=== PATIENT | male | born 1960 | race Caucasian/White ===

== ENCOUNTER 2016-08-07 20:35 | Emergency (ER) | payer OTHER ==
[2016-08-07 20:43] VITALS: TEMP 98.3
--- NOTE | 2016-08-07 21:00 | ED ---
General Adult HPI - General Chief complaint: Overdose Stated complaint: Drug Overdose Time Seen by Provider: 08/07/16 20:46 Source: patient, EMS, RN notes reviewed Mode of arrival: EMS Limitations: no limitations - History of Present Illness Initial comments: Patient is a 56-year-old male presenting to the emergency department following an overdose. Patient admits to injecting what he believed to be heroin. Patient has done this in the past however does not do this daily. Patient states there may have been something else and it. Family member who also became unresponsive believes been no may have been mixed with it. Patient feels fine at this time. Patient denies any injury. Patient denies any suicidal thoughts or suicide attempt. EMS did provide Narcan when they found patient unresponsive with resolution of symptoms. - Related Data Home Medications Medication Instructions Recorded Confirmed No Known Home Medications [No 07/16/16 08/07/16 Known Home Medications] Allergies Allergy/AdvReac Type Severity Reaction Status Date / Time No Known Allergies Allergy Verified 08/07/16 21:07 Review of Systems ROS Statement: Those systems with pertinent positive or pertinent negative responses have been documented in the HPI. ROS Other: All systems not noted in ROS Statement are negative. Constitutional: Denies: fever Eyes: Denies: eye pain ENT: Denies: ear pain Respiratory: Denies: dyspnea Cardiovascular: Denies: chest pain Endocrine: Denies: fatigue Gastrointestinal: Denies: abdominal pain Genitourinary: Denies: dysuria Musculoskeletal: Denies: back pain Skin: Denies: rash Neurological: Denies: weakness Psychiatric: Denies: depression, suicidal thoughts Past Medical History Past Medical History: GERD/Reflux, Hypertension, Pneumonia Additional Past Medical History / Comment(s): chronic back pain History of Any Multi-Drug Resistant Organisms: None Reported Past Surgical History: Adenoidectomy, Appendectomy, Cholecystectomy, Orthopedic Surgery, Tonsillectomy Past Anesthesia/Blood Transfusion Reactions: No Reported Reaction Past Psychological History: No Psychological Hx Reported Smoking Status: Current every day smoker Past Alcohol Use History: None Reported Additional Past Alcohol Use History / Comment(s): 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", 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13 Past Drug Use History: Heroin Additional Drug Use History / Comment(s): iv heroin - last use earlier this month 12/2015 - Past Family History Mother History Unknown: Yes Additional Family Medical History / Comment(s): huntingtons General Exam Limitations: no limitations General appearance: alert, in no apparent distress Head exam: Present: atraumatic Eye exam: Present: normal appearance, PERRL ENT exam: Present: normal oropharynx Neck exam: Present: normal inspection Respiratory exam: Present: normal lung sounds bilaterally Cardiovascular Exam: Present: tachycardia GI/Abdominal exam: Present: soft. Absent: tenderness Extremities exam: Present: normal inspection Neurological exam: Present: alert. Absent: motor sensory deficit Psychiatric exam: Present: normal affect, normal mood Skin exam: Absent: rash Course Vital Signs 08/07/16 08/07/16 20:36 20:42 Temperature 98.3 F Pulse Rate 108 H 102 H Respiratory 14 14 Rate Blood Pressure 203/108 160/98 O2 Sat by Pulse 95 94 L Oximetry EKG Findings - EKG Comments: EKG Findings:: Sinus tach at 103. DC 154. QRS 94. QT 360. QTC 471. Left axis. Normal QRS. Normal ST-T. Medical Decision Making - Medical Decision Making Patient reexamined twice and remains alert and appropriate. Disposition Clinical Impression: Heroin overdose Disposition: HOME SELF-CARE Condition: Stable Instructions: Opioid Overdose (ED), Adult Overdose (ED) Additional Instructions: Please follow-up with primary care physician in the next day or 2 for recheck. Discontinue heroin use. Return for drowsiness, weakness, worsening symptoms or other concerns. Please provide list for substance abuse follow-up. Referrals: None,Stated [Primary Care Provider] - 1-2 days Clary Javed MD [STAFF PHYSICIAN] - 1-2 days
[2016-08-07 22:45] VITALS: BP 169/91; PULSE 100; RESP 16
== END 2016-08-07 22:41 | disposition home or self-care (01) ==
LOC: EC 20:35
DX: T40.1X1A Poisoning by heroin, accidental (unintentional), initial encounter (principal); F17.200 Nicotine dependence, unspecified, uncomplicated
CPT/HCPCS: 93005; 99284

== ENCOUNTER 2017-03-21 07:53 | Inpatient (IN) | payer MEDICAID, OTHER ==
--- NOTE | 2017-03-21 08:27 | ED ---
Psych HPI <Jeffery Fu - Last Filed: 03/21/17 11:20> - General Source: patient, RN notes reviewed, old records reviewed Mode of arrival: ambulatory <Jayla Coy - Last Filed: 03/21/17 11:25> - General Chief Complaint: Psychiatric Symptoms Stated Complaint: SUICIDAL Time Seen by Provider: 03/21/17 08:05 - History of Present Illness Initial Comments: This is a 56-year-old male presenting to the emergency Department chief complaint of suicidal ideation. Patient reports that he has been extremely depressed over the past 2 weeks after his fiance . He reports that she was chronically ill had multiple multiple medical issues and he was taking care of her. Patient reports that since she passed 2 weeks ago he has been using heroin and drinking every day. Patient reports that he plans to overdose in order to kill himself. Patient states that he had a history of anxiety and depression and his past but does not take any medications at this time. Patient reports that he has no homicidal ideation. He states that he has never been hospitalized before for suicidal ideation. He states that he has been a chronic heroin user, but just started to drink heavily over the past 2 weeks. Patient reports that he's had a poor appetite and has not been able to sleep well. Patient reports that he now lives alone. He denies having any siblings, or family support. He denies any auditory or visual hallucinations.Patient denies any recent fever, chills, shortness of breath, chest pain, back pain, abdominal pain, nausea vomiting, numbness or tingling, dysuria or hematuria, constipation or diarrhea, headaches or visual changes, or any other current symptoms (Jayla Coy) - Related Data Home Medications Medication Instructions Recorded Confirmed No Known Home Medications [No 07/16/16 03/21/17 Known Home Medications] Allergies Allergy/AdvReac Type Severity Reaction Status Date / Time No Known Allergies Allergy Verified 03/21/17 08:31 Review of Systems ROS Other: All systems not noted in ROS Statement are negative. <TankJeffery - Last Filed: 03/21/17 11:20> ROS Other: All systems not noted in ROS Statement are negative. <Jayla Coy - Last Filed: 03/21/17 11:25> ROS Statement: Those systems with pertinent positive or pertinent negative responses have been documented in the HPI. Past Medical History Past Medical History: GERD/Reflux, Hypertension, Pneumonia Additional Past Medical History / Comment(s): chronic back pain History of Any Multi-Drug Resistant Organisms: None Reported Past Surgical History: Adenoidectomy, Appendectomy, Cholecystectomy, Orthopedic Surgery, Tonsillectomy Past Anesthesia/Blood Transfusion Reactions: No Reported Reaction Past Psychological History: No Psychological Hx Reported Smoking Status: Current every day smoker Past Alcohol Use History: None Reported Past Drug Use History: Heroin - Past Family History Mother History Unknown: Yes Additional Family Medical History / Comment(s): huntingtons <Jayla Coy - Last Filed: 03/21/17 11:25> General Exam <Jeffery Fu - Last Filed: 03/21/17 11:20> Limitations: no limitations General appearance: alert, in no apparent distress Head exam: Present: atraumatic, normocephalic, normal inspection Eye exam: Present: normal appearance, PERRL, EOMI. Absent: scleral icterus, conjunctival injection, periorbital swelling ENT exam: Present: normal exam, mucous membranes moist Neck exam: Present: normal inspection. Absent: tenderness, meningismus, lymphadenopathy Respiratory exam: Present: normal lung sounds bilaterally. Absent: respiratory distress, wheezes, rales, rhonchi, stridor Cardiovascular Exam: Present: regular rate, normal rhythm, normal heart sounds. Absent: systolic murmur, diastolic murmur, rubs, gallop, clicks GI/Abdominal exam: Present: soft, normal bowel sounds. Absent: distended, tenderness, guarding, rebound, rigid Extremities exam: Present: normal inspection, full ROM, normal capillary refill. Absent: tenderness, pedal edema, joint swelling, calf tenderness Back exam: Present: normal inspection Neurological exam: Present: alert, oriented X3, CN II-XII intact Psychiatric exam: Present: depressed, suicidal ideation (Patient reports that he is suicidal, extremely depressed. Patient is tearful on exam.), other. Absent: normal affect, normal mood Skin exam: Present: warm, dry, intact, normal color. Absent: rash <Jayla Coy - Last Filed: 03/21/17 11:25> - General Exam Comments Initial Comments: This is a 56-year-old male. Patient appears to be depressed and is crying and tearful. (Jayla Coy) Course <Jeffery Fu - Last Filed: 03/21/17 11:20> <Jayla Coy - Last Filed: 03/21/17 11:25> Vital Signs 03/21/17 07:57 Temperature 98.1 F Pulse Rate 87 Respiratory 20 Rate Blood Pressure 181/97 O2 Sat by Pulse 99 Oximetry - Reevaluation(s) Reevaluation #1: 03/21/17 08:26 is medically clear at this time. EPS was notified. (Jayla Coy) Reevaluation #2: 03/21/17 11:20 I did do a [id number] evaluation the patient patient was evaluated by the psychiatric service and will be admitted for inpatient treatment of depression. (Jeffery Fu) Medical Decision Making <Jeffery Fu - Last Filed: 03/21/17 11:20> <Jayla Coy - Last Filed: 03/21/17 11:25> - Medical Decision Making Physical 56-year-old male with history of heroin and alcohol abuse presenting for suicidal ideation. Patient reports that over the Past 2 weeks is been actually depressed and drinking heavily and using heroin more frequently, this was after his fiance . He reports that she is chronically ill, was taking care of her until she of sepsis 2 weeks ago. Patient is medically clear for EPS evaluation. Is a terminal patient will be admitted at this time. (Jayla Coy) - Lab Data Lab Results 03/21/17 Range/Units 09:04 Urine Opiates Screen Not Detected (NotDetected) Ur Oxycodone Screen Not Detected (NotDetected) Urine Methadone Screen Not Detected (NotDetected) Ur Propoxyphene Screen Not Detected (NotDetected) Ur Barbiturates Screen Not Detected (NotDetected) U Tricyclic Antidepress Not Detected (NotDetected) Ur Phencyclidine Scrn Not Detected (NotDetected) Ur Amphetamines Screen Detected H (NotDetected) U Methamphetamines Scrn Not Detected (NotDetected) U Benzodiazepines Scrn Not Detected (NotDetected) Urine Cocaine Screen Detected H (NotDetected) U Marijuana (THC) Screen Detected H (NotDetected) Disposition <Jeffery Fu - Last Filed: 03/21/17 11:20> Time of Disposition: 11:24 <Jayla Coy - Last Filed: 03/21/17 11:25> Clinical Impression: Suicidal ideation, Depression Disposition: ADMITTED IP TO THIS HOSP Condition: Stable Referrals: Kandace Hamlin MD [Primary Care Provider] - 1-2 days
[2017-03-21] MEDS ORDERED: MAG HYDROX/AL HYDROX/SIMETH 30 ML CUP PO PRN (11:55)
[2017-03-21] MEDS ORDERED: ZIPRASIDONE 20 MG VIAL IM PRN (11:55)
[2017-03-21] MEDS ORDERED: cloNIDine HCL 0.1 MG TAB PO STA (12:07)
[2017-03-21] MEDS ORDERED: LOPERAMIDE 2 MG CAP PO PRN (12:08)
[2017-03-21] MEDS: NICOTINE 14MG/24HR PATCH TRANSDERM SCH (12:47)
--- NOTE | 2017-03-21 16:24 | P.HP ---
Psychiatric H&P - . H&P Date: 03/21/17 History & Physical: Allergies Allergy/AdvReac Type Severity Reaction Status Date / Time No Known Allergies Allergy Verified 03/21/17 08:31 Vital Signs Temp 98.6 F 03/21/17 12:12 Pulse 81 03/21/17 12:12 Resp 16 03/21/17 12:12 BP 154/99 03/21/17 12:12 Pulse Ox 99 03/21/17 07:57 Intake & Output 03/20/17 03/21/17 03/21/17 18:59 06:59 18:59 Weight 68.039 kg Laboratory Last Values Urine Opiates Screen Not Detected (NotDetected) 03/21/17 09:04 Ur Oxycodone Screen Not Detected (NotDetected) 03/21/17 09:04 Urine Methadone Screen Not Detected (NotDetected) 03/21/17 09:04 Ur Propoxyphene Screen Not Detected (NotDetected) 03/21/17 09:04 Ur Barbiturates Screen Not Detected (NotDetected) 03/21/17 09:04 U Tricyclic Antidepress Not Detected (NotDetected) 03/21/17 09:04 Ur Phencyclidine Scrn Not Detected (NotDetected) 03/21/17 09:04 Ur Amphetamines Screen Detected (NotDetected) H 03/21/17 09:04 U Methamphetamines Scrn Not Detected (NotDetected) 03/21/17 09:04 U Benzodiazepines Scrn Not Detected (NotDetected) 03/21/17 09:04 Urine Cocaine Screen Detected (NotDetected) H 03/21/17 09:04 U Marijuana (THC) Screen Detected (NotDetected) H 03/21/17 09:04 03/21/17 16 Identification: Patient is a 56-year-old male who came to the emergency room reporting that he was feeling suicidal and had attempted to overdose on heroin 4 days ago but did not have enough heroin to accomplish that. History of Present Illness: Patient states that he began using heroin intravenously, alcohol and crack cocaine and methamphetamine over the last 2 weeks after his girlfriend . His girlfriend after becoming septic. Patient states that he had been at [facility] for months ago and relapsed on heroin several months later. Patient states that he has been using heroin IV for the last 7 years. Patient states that since his girlfriend he has been feeling hopeless, helpless, has not been sleeping well and has not been eating. Reports he is not caring for his ADLs and states that he wants to . Patient states he didn't care what happened to him. Patient reports that he began using alcohol a 6 pack a day plus a half a pint of liquor, was using crack cocaine and methamphetamine and began reusing heroin IV and attempted to overdose with heroin. He states that he has been depressed in the past, this was 15 years ago when he tried to walk out in front of a car and was seen as an outpatient at [facility] in professional counseling, he states he was placed on an unknown medication that he took for an unknown amount of time and then stopped going to counseling and taking the medication. He reports that he is concerned about where he is going to live as he has no source of financial support and is concerned he may be evicted from his current residence. Patient states that he and his girlfriend had been together for 7 years and she was also an IV heroin abuser. Patient does not endorse any symptoms of viky currently or in the past, no symptoms of psychosis currently or in the past. Patient states he is having stomach pain due to withdrawing from heroin. He reported no other complaints at this time. Past Psychiatric History: Patient denies any prior inpatient psychiatric treatment. He reports 15 years ago he was seen at [facility] and then a professional counseling Center and treated with an unknown medication for depression after he attempted to walk in front of a car. Patient has been treated at [facility] for months ago for heroin use and relapsed several months after discharge. Past Medical/Surgical History: Patient has a history of hypertension, GERD. States he is status post appendectomy, cholecystectomy and tonsil and adenoidectomy Home Medications Medication Instructions Recorded Confirmed No Known Home Medications [No 07/16/03/21/17 Known Home Medications] Family History: Patient reports no family history of psychiatric disorder. Patient reports his father abused alcohol and that numerous members of his father's family did as well. Social History: Patient states his parents are both , he has 6 siblings 3 of whom are . He states he has no contact with any of his surviving siblings. 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 He last worked over 5 years ago. He has been 2 times and both times. He has no children. His relationship with his girlfriend was over the last 7 years and they were living together and she was on disability and supporting them from a financial standpoint. Patient reports he has no current source of financial support and is concerned he will be evicted from his home. Substance Use History: He states began using alcohol at the age of 12 and last used over 7 years ago and recently began drinking a 6 pack of beer a day as well as a half pint of liquor a day. Patient states he used marijuana at the age of 12 and continued to use until he was 34 years of age. Patient states he began using IV heroin 7 years ago and was clean from heroin for only several months after discharge from [facility]. Patient is used methamphetamine in the past on several occasions, reports he recently used Adderall, states he has used crack recently and states he is used Xanax in the past. Legal History: Patient states he has been charged with a DUI, breaking and entering, robbery Ms. been to [facility] occasions last time being from 1994- 2004. He reports no current legal difficulties. Mental Status:Appearance/Attitude: Patient is disheveled, dressed in a hospital gown and sits in the chair bent over stating that his stomach hurts and he is cooperative. Behavior: Patient displayed no psychomotor agitation or retardation only reporting that he was having stomach pain from withdrawal. Speech/Language: Patient's speech is spontaneous, he speaks in a soft voice and normal rhythm and he is coherent. Thought Process: Patient is goal-directed and there is no evidence of circumstantial or tangential thought and flight of ideas or loose associations. Thought Content: Patient denies any auditory or visual hallucinations no delusions or paranoia were elicited. Patient reports he feels worthless, hopeless and helpless stating he is concerned he'll lose his house and has no source of financial support. He reports he has not been eating or sleeping well and has not been caring for his ADLs. States that he has been feeling depressed since the of his girlfriend 2 weeks ago. Suicidal/Homicidal Ideation: Patient states that he doesn't want to live and tried to commit suicide by taking an overdose of heroin 4 days ago but states that he did not have enough to succeed. He reports he is no longer thinking of suicide and denies any homicidal ideation. Sensorium/Cognition: Patient is alert and oriented to person, place, and time and his memory is grossly intact. Mood/Affect: Patient's mood is depressed, distressed and his affect is blunted. Insight/Judgement: Patient's insight and judgment are impaired. Intellectual Functioning: Patient's intellectual functioning appears to be average. Strength/Weaknesses: Patient did seek treatment/history of substance use, lack of support system, lack of financial support Assessment: Patient presents after a 2 week use of alcohol combined with crack cocaine, methamphetamine and IV heroin after the of his girlfriend 2 weeks ago. Patient states he attempted to commit suicide 4 days prior to admission with an overdose of heroin but did not have enough to accomplish this. Patient presented to the emergency room reporting suicidal ideation and feeling depressed. Patient reports he is up and sleeping or eating well and hasn't been caring for himself reports feeling hopeless and helpless but no current suicidal thoughts. Patient is also withdrawing from heroin. Admission Diagnoses: Major depressive disorder, single episode, moderate; opiate use disorder, severe Plan: Patient was admitted on a voluntary basis for medical consultation was requested as well as routine laboratory studies. Patient was also placed on routine precautions, ordered group and activity therapy. Patient and I discussed the use and side effects of Celexa to treat his symptoms of depression and he was willing to begin 10 mg daily to target his depressive symptoms. Patient declines return to [facility] for rehab at this time. Patient will also be treated symptomatically for his withdrawal symptoms. 03/21/17 16:20
[2017-03-21] MEDS: ACETAMINOPHEN TAB 325 MG TAB PO PRN (16:41)
[2017-03-21] MEDS: LORazepam 1 MG TAB PO PRN (16:41)
[2017-03-21] MEDS: amLODIPine 5 MG TAB PO SCH (17:43)
--- NOTE | 2017-03-21 21:23 | P.CONS ---
History of Present Illness - Reason for Consult Consult date: 03/21/17 medical eval - History of Present Illness 56 yr old with IVDA with heroin is admitted to the hospital with suicidal ideation, his apparently recently due to sepsis with a mesh infection. pt shared needles with her, he has been extremely depressed since then today pt states his only complaint is that he has pain in his left elbow where he used needles to inject drugs pt was noted to have multiple illicit drugs in his system denies having suicidal or homicidal ideation at this time bp was slightly high , was given a dose of clonidine pt's partner was apparently hep c positive and pt is concerned over the his having the infection. Review of Systems All systems: negative (noted inhpi) Past Medical History Past Medical History: GERD/Reflux, Hypertension, Pneumonia Additional Past Medical History / Comment(s): chronic back pain History of Any Multi-Drug Resistant Organisms: None Reported Past Surgical History: Adenoidectomy, Appendectomy, Cholecystectomy, Orthopedic Surgery, Tonsillectomy Past Anesthesia/Blood Transfusion Reactions: No Reported Reaction Past Psychological History: No Psychological Hx Reported Smoking Status: Current every day smoker Past Alcohol Use History: None Reported Past Drug Use History: Heroin - Past Family History Mother History Unknown: Yes Additional Family Medical History / Comment(s): huntingtons Medications and Allergies Home Medications Medication Instructions Recorded Confirmed Type No Known Home Medications [No 07/16/16 03/21/17 History Known Home Medications] Allergies Allergy/AdvReac Type Severity Reaction Status Date / Time No Known Allergies Allergy Verified 03/21/17 08:31 Physical Exam Vitals: Vital Signs Temp Pulse Pulse Resp BP BP Pulse Ox 03/21/17 16:44 91 16 140/86 03/21/17 12:12 98.6 F 81 16 154/99 03/21/17 07:57 98.1 F 87 20 181/97 99 Intake and Output 03/21/17 03/21/17 03/21/17 06:59 14:59 22:59 Other: Weight 68.039 kg Patient Weight 03/22/17 06:59 Weight 68.039 kg - Constitutional General appearance: average body habitus - EENT Eyes: EOMI, no PERRLA - Respiratory Respiratory: bilateral: CTA, diminished, negative: dullness, rales - Cardiovascular Rhythm: regular Heart sounds: normal: S1, S2 Abnormal Heart Sounds: no systolic murmur, no diastolic murmur - Gastrointestinal General gastrointestinal: normal bowel sounds, no organomegaly, soft - Integumentary Integumentary: cellulitis (left elbow consistent with thrombophelbitis) - Neurologic Neurologic: CNII-XII intact - Psychiatric Psychiatric: A&O x's 3 Results Labs: Abnormal Lab Results - Last 24 Hours (Table) 03/21/17 Range/Units 09:04 Ur Amphetamines Screen Detected H (NotDetected) Urine Cocaine Screen Detected H (NotDetected) U Marijuana (THC) Screen Detected H (NotDetected) Assessment and Plan Plan: Heroin use Polysubstance use Thrombophlebitis IVDA tobacco use Isolated HTN Plan will start the pt on amlodipine 5 mg could just be a sequalae of withdrawal. does complaint of abdominal pain and loose stools check hep c however this has to be deffered to an out patient basis thank you for the consultation . ceftin 250 bid for 5 days for phlebitis
[2017-03-22] MEDS: CEFUROXIME 250 MG TAB PO SCH ×2 (08:19→20:41)
[2017-03-22] MEDS: amLODIPine 5 MG TAB PO SCH (08:19)
[2017-03-22] MEDS: LORazepam 1 MG TAB PO PRN ×3 (08:19→22:36)
[2017-03-22] MEDS: NICOTINE 14MG/24HR PATCH TRANSDERM SCH (08:19)
[2017-03-22] MEDS ORDERED: CITALOPRAM HYDROBROMIDE 10 MG TAB PO SCH (09:00)
[2017-03-22 09:34] LABS: Basophils # (A) 0.1 k/uL (0-0.2); Basophils % (A) 1 %; CH 32.3; Eosinophils # (A) 0.2 k/uL (0-0.7); Eosinophils % (A) 2 %; HCT 54.9 % (39.0-53.0); HDW 2.34; HGB 17.7 gm/dL (13.0-17.5); Luc # (Auto) 0.14; Luc % (Auto) 2; Lymphocytes # (A) 1.9 k/uL (1.0-4.8); Lymphocytes % (A) 23 %; MCH 30.8 pg (25.0-35.0); MCHC 32.3 g/dL (31.0-37.0); MCV 95.6 fL (80.0-100.0); Mean Platelet Volume 7.7; Monocytes # (A) 0.4 k/uL (0-1.0); Monocytes % (A) 4 %; Neutrophils # (A) 5.5 k/uL (1.3-7.7); Neutrophils % (A) 67 %; RBC 5.74 m/uL (4.30-5.90); RDW 14.9 % (11.5-15.5); WBC 8.1 k/uL (3.8-10.6)
[2017-03-22 09:40] LABS: ALT 43 U/L (21-72); AST 29 U/L (17-59); Alkaline Phosphatase 67 U/L (38-126); Anion Gap 10 mmol/L; Bilirubin, Delta 0.3 mg/dL (0.0-0.2); Blood Urea Nitrogen 13 mg/dL (9-20); Calcium 9.4 mg/dL (8.4-10.2); Carbon Dioxide 26 mmol/L (22-30); Chloride 104 mmol/L (98-107); Glucose 167 mg/dL (74-99); Non-African American GFR(MDRD) >60 (>60 ml/min/1.73 sqM); Potassium 4.4 mmol/L (3.5-5.1); Sodium 140 mmol/L (137-145); Total Bilirubin 0.8 mg/dL (0.2-1.3); Total Protein 7.3 g/dL (6.3-8.2)
[2017-03-22 10:12] LABS: Hepatitis B Surface Ag Index 0.06
[2017-03-22 10:17] LABS: Hepatitis B Core IgM Index 0.03
[2017-03-22 10:29] LABS: Hepatitis C Virus IgG Ab Reactive (Negative)
[2017-03-22] MEDS: ACETAMINOPHEN TAB 325 MG TAB PO PRN (14:14)
[2017-03-22] MEDS ORDERED: FOLIC ACID 1 MG TAB PO ONE (16:30)
[2017-03-22] MEDS ORDERED: THIAMINE 100 MG TAB PO ONE (16:30)
--- NOTE | 2017-03-22 18:10 | HP ---
DATE OF ADMISSION 03/21/17 IDENTIFYING DATA: This is a 56 -year-old male patient. HISTORY OF PRESENT ILLNESS: Mr. Hernandez presents to the inpatient psychiatry unit at [facility] as an admission from the emergency room with recent depression and thoughts of suicide. He says his girlfriend two and a half to three weeks ago. He had been with her for seven years. He states she had a blood infection. He says he has been able to cry and grieve. He was feeling depressed even before she but it has been intensified since she . He does state that he was having thoughts of suicide. Came into the hospital on his own. He says he had a plan to overdose or hang himself. He says he has not been sleeping good for the last two weeks and also not eating good. He does admit to being a worrier. PSYCHIATRIC HISTORY: No history of any inpatient psychiatric treatment. No apparent outpatient treatment. He has been on Celexa for the last antidepressant and is currently on 10 mg daily. He is not sure regarding the benefit. It did not bother him. He says one time he rode his bide in front of a car in terms of a suicide attempt but he did not get hit. PSYCHIATRIC FAMILY HISTORY: He denies. PAST MEDICAL HISTORY: Hypertension and back pain. Current medications: 1. Tylenol prn. 2. Maalox prn. 3. Norvasc. 4. Ceftin. 5. Celexa. 6. Folate. 7. Imodium prn. 8. Ativan prn. 9. Habitrol patch. 10. Vitamin B1. 11. Geodon prn. DRUG AND ALCOHOL HISTORY: He says he has been using alcohol for the past couple of weeks daily and also uses crack daily. He has used Adderall once or twice. He has been to rehab in the past twice. He says he does not have desire for rehab right now. SOCIAL HISTORY: He currently lives alone in his apartment. He was living with his girlfriend. 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 He has been twice in the past, both were divorces. He does not have any children. He states that he will be homeless. MENTAL STATUS EXAM: He is alert, dressed in hospital gown. His speech is fluent. Not rapid or pressured. Thought processes are organized. His mood is described as sick. He does describe some shakiness with some withdrawals. He still has some thoughts of suicide but says he feels safe here on the unit. He denies any thoughts of harm to others. He denies any auditory or visual hallucinations. He does not make any seun delusional statements. Cognitively appears to be grossly intact. I did not note any significant disorientation or significant memory disturbances. Insight is adequate. Judgement is impaired. IMPRESSION: 1. Major depressive disorder, recurrent, severe. 2. Generalized anxiety disorder. 3. Alcohol use disorder. 4. Stimulant use disorder. PLAN/RECOMMENDATIONS: The patient will be admitted today, to the inpatient psychiatric unit at [facility] on a voluntary basis. He will be placed on SP 15 minute precautions. He will participate in group and activity therapy. Baseline laboratory workup was done on the patient and medical consultation was ordered. We will titrate on Celexa to 20 mg daily to help further with depression and anxiety. We will initiate Trazodone 15 mg at bedtime to help with insomnia. He will be encouraged regarding keeping his sobriety. Discussed inpatient rehab with the patient which he reports he does not have the desire for rehab right now. We will look into any support systems. I will continue to cover this patient for Dr. Deleon through the weekend. Estimated length of stay is three to five days. Prognosis guarded MTDD
[2017-03-22] MEDS: traZODone HCL 50 MG TAB PO SCH (20:41)
[2017-03-23] MEDS: NICOTINE 14MG/24HR PATCH TRANSDERM SCH (08:52)
[2017-03-23] MEDS: CEFUROXIME 250 MG TAB PO SCH ×2 (08:53→20:55)
[2017-03-23] MEDS: CITALOPRAM HYDROBROMIDE 20 MG TAB PO SCH (08:53)
[2017-03-23] MEDS: FOLIC ACID 1 MG TAB PO SCH (08:53)
[2017-03-23] MEDS: amLODIPine 5 MG TAB PO SCH (08:53)
[2017-03-23] MEDS: LORazepam 1 MG TAB PO PRN ×3 (08:54→20:56)
[2017-03-23] MEDS: THIAMINE 100 MG TAB PO SCH (12:02)
--- NOTE | 2017-03-23 17:56 | P.PN ---
Progress Note - Text Interval history: Patient reports that he feels slightly better today mood jain. Says he slept about 2 hours last night. He is seen in cross coverage today for Dr. Deleon. He does not voice any adverse psychotropic medication side effects. He says his stomach upset but he has been eating okay. Mental status exam: He is alert and cooperative with the interview. His answers are brief. His affect is restricted. His mood he describes is slightly better. He verbalizes having some on and off thoughts of suicide but reports that he feels safe here on the unit. He denies any thoughts of harm to others. He does not exhibit any acute psychosis symptoms. He does not show any agitation. Plan: We'll maintain current psychotropic medication regimen. We'll continue to monitor for any medication side effects and monitor his ongoing response to treatment. Dr. Deleon will initiate treatment of this patient starting tomorrow.
[2017-03-23] MEDS: traZODone HCL 50 MG TAB PO SCH (20:55)
[2017-03-24] MEDS: CEFUROXIME 250 MG TAB PO SCH ×2 (09:41→21:30)
[2017-03-24] MEDS: NICOTINE 14MG/24HR PATCH TRANSDERM SCH (09:41)
[2017-03-24] MEDS: CITALOPRAM HYDROBROMIDE 20 MG TAB PO SCH (09:41)
[2017-03-24] MEDS: amLODIPine 5 MG TAB PO SCH (09:41)
[2017-03-24] MEDS: THIAMINE 100 MG TAB PO SCH (11:46)
[2017-03-24] MEDS: LORazepam 1 MG TAB PO PRN ×2 (11:47→19:28)
[2017-03-24] MEDS: FOLIC ACID 1 MG TAB PO SCH (11:47)
--- NOTE | 2017-03-24 12:20 | P.PN ---
Progress Note - Text Interval History: A she is a 56-year-old male who is admitted due to suicidal ideation and an attempt several days prior to admission to overdose with heroin. Patient was seen today and continues to appear in distress stating that his stomach continues to hurt, Maalox has not been beneficial and he is not having any nausea or vomiting. He states he has been able to eat but his stomach is continuing to her. Patient reports that he is not sleeping and is feeling restless at night. Patient is not been attending groups due to not feeling physically well. He states that he is still feeling suicidal due to not sleeping but doesn't want to and has no plan to act. Mental Status: Appearance/Attitude: Patient appears disheveled and in pain, dressed in a hospital gown making intermittent eye contact and is cooperative. Behavior: Patient does not display any psychomotor agitation or retardation. Speech/Language: Patient is not spontaneous, only responding to questions, and a normal rhythm and volume. Thought Process: Patient is goal-directed, but is not elaborating on his responses and there is no evidence of circumstantial or tangential thought and no loose associations or flight of ideas. Thought Content: Patient denies any auditory or visual hallucinations, no delusions or paranoid ideation were elicited. Patient reports that he is feeling restless at night and not sleeping well and is causing him to feel suicidal. Patient states that he has been eating and reports no nausea or vomiting but does report stomach pain that has not improved with Maalox over the last several days. Patient states that he is not feeling well physically and has not been attending groups due to that. Suicidal/Homicidal Ideation: Patient states that he does not want to but does have suicidal thoughts because he is not sleeping and has no plan to act, he denies any homicidal ideation. Sensorium/Cognition: Patient is alert and oriented to person, place, and time and his memory is grossly intact. Mood/Affect: Patient's mood remains depressed and despondent and his affect is blunted. Insight/Judgement: Patient's insight and judgment are fair Assessment: Patient's Celexa was increased to 20 mg and he continues to report feeling depressed, restless sleep at night causing him to feel suicidal and continues to report stomach pain that is not altered since his admission. Patient continues to report poor sleep and was started on trazodone 50 mg but he states with minimal effect. Patient has not been attending groups or activities due to physically not feeling well. Patient remains depressed, despondent and appears to be in physical pain. Plan: Patient will continue on Celexa 20 mg a day to target his depression and I will increase the trazodone to 100 mg at bedtime to target his insomnia. Patient's hep C was reactive and he is aware that he needs to follow up with this as an outpatient. Will have the medical receptionist biller reevaluate the patient' s continued complaints of stomach pain. Patient continues to require hospitalization due to his continued depression and suicidal thoughts.
[2017-03-24] MEDS: traZODone HCL 50 MG TAB PO SCH (21:30)
[2017-03-24] MEDS: ACETAMINOPHEN TAB 325 MG TAB PO PRN (21:30)
[2017-03-25] MEDS: NICOTINE 14MG/24HR PATCH TRANSDERM SCH (09:04)
[2017-03-25] MEDS: CEFUROXIME 250 MG TAB PO SCH ×2 (09:05→21:38)
[2017-03-25] MEDS: FOLIC ACID 1 MG TAB PO SCH (09:05)
[2017-03-25] MEDS: amLODIPine 5 MG TAB PO SCH (09:05)
[2017-03-25] MEDS: THIAMINE 100 MG TAB PO SCH (09:05)
[2017-03-25] MEDS: CITALOPRAM HYDROBROMIDE 20 MG TAB PO SCH (09:06)
--- NOTE | 2017-03-25 12:42 | P.PN ---
Progress Note - Text Interval History: Patient is a 56-year-old male who was seen today and he reported that he is not feeling as depressed and stated that he is not having any further stomach pain. Patient states he slept well last evening. Patient states that he has not been attending groups due to not feeling well. He denies any current suicidal thoughts and states he is anxious to return home to obtain his belongings prior to being evicted. Patient reports that he is interested in community mental health and they're Suboxone program. Mental Status: Appearance/Attitude: Patient continues to appear kimberlee, he makes good eye contact and is cooperative. Behavior: Patient displays no psychomotor agitation or retardation. Speech/Language: Patient's speech is spontaneous and of normal volume and rhythm and he is coherent. Thought Process: Patient is goal-directed and is not circumstantial or tangential and no evidence of loose associations or flight of ideas. Thought Content: Patient denies any auditory or visual hallucinations no delusions or paranoid ideation or elicited. Patient states he is no longer feeling suicidal, is eager to return home to obtain his belongings as he feels he is being evicted at the end of this month. Patient states that his stomach is no longer hurting and he was able to eat without any difficulty. Patient reports he slept well last evening. Suicidal/Homicidal Ideation: Patient denies any current suicidal or homicidal ideation. Sensorium/Cognition: Patient is alert and oriented to person, place, and time and his memory is grossly intact. Mood/Affect: Patient states that he is not depressed, his affect remains blunted. Insight/Judgement: Patient's insight and judgment are fair. Assessment: In team treatment meeting I was informed that the patient had signed a three-day notice and I discussed this with the patient and he states that he was eager to be discharged and thought that this man he could leave and 3 days. I discussed with the patient that we agreed that I would discharge him tomorrow and he was agreeable to rescind his three-day notice. Patient will continue on Celexa 20 mg a day and his trazodone was not increased yesterday to 100 but continued at 50 mg and he slept well. Patient has not been attending groups or activities due to not feeling well. Patient reports that his stomach pain is much better and he is no longer feeling as though he is in withdrawal. He is denying any current suicidal thoughts and states he is no longer as depressed as he was on admission. Plan: Patient will continue on Celexa 20 mg a day to target his depression and trazodone 50 mg at bedtime to target his sleep. Patient and I discussed his discharge for tomorrow with a referral to [facility] mental health and he is requesting at the Suboxone program. I encouraged the patient to attend groups and activities and participate. Patient was agreeable with the plan for discharge tomorrow.
[2017-03-25] MEDS: ACETAMINOPHEN TAB 325 MG TAB PO PRN (16:13)
[2017-03-25] MEDS: LORazepam 1 MG TAB PO PRN (16:14)
[2017-03-25] MEDS: traZODone HCL 50 MG TAB PO SCH (21:38)
[2017-03-26 07:12] VITALS: TEMP 98.2
[2017-03-26] MEDS: NICOTINE 14MG/24HR PATCH TRANSDERM SCH (08:41)
[2017-03-26] MEDS: amLODIPine 5 MG TAB PO SCH (08:41)
[2017-03-26] MEDS: CITALOPRAM HYDROBROMIDE 20 MG TAB PO SCH (08:41)
[2017-03-26] MEDS: CEFUROXIME 250 MG TAB PO SCH (08:41)
[2017-03-26 10:55] VITALS: RESP 18
[2017-03-26] MEDS: FOLIC ACID 1 MG TAB PO SCH (12:26)
[2017-03-26] MEDS: THIAMINE 100 MG TAB PO SCH (12:26)
--- NOTE | 2017-03-26 12:32 | P.DS ---
Providers Date of admission: 03/21/17 11:27 Expected date of discharge: 03/26/17 Attending physician: Kyara Deleon MD Consults: 03/21/17 11:55 Consult Physician Routine Consulting Provider: Mansi Howe Consult Reason/Comments: H & P and medical care Do you want consulting provider notified?: Yes 03/24/17 13:36 Consult Physician Routine Consulting Provider: Mansi Howe Consult Reason/Comments: Stomach Pain Do you want consulting provider notified?: Yes Primary care physician: [facility] Course: Discharge Diagnoses: Major depressive disorder, single episode, moderate; opiate use disorder, severe Reason for Admission: Patient is a 56-year-old male who presented to the emergency room reporting that he was feeling suicidal and attempted to overdose on heroin 4 days ago but did not have enough to accomplish this. Patient states that he began using heroin intravenously, alcohol and crack cocaine and methamphetamine over the last 2 weeks after his girlfriend . Patient states that he had been at [facility] four months ago and relapsed on heroin several months later. Patient reports that he has been using heroin IV for the last 7 years. He reports after his girlfriend began feeling hopeless, helpless and has not been sleeping well or eating. He has not been caring for his ADLs and stated that he wanted to . She reports he didn't care what happened to him and he began using alcohol at a 6 pack of beer a day plus a half pint of liquor as well as using crack cocaine and methamphetamine and began reusing IV heroin and attempt to overdose. Patient reports a history of depression in the past, 15 years ago he tried to walk out in front of a car and was seen as an outpatient. He was placed on an unknown medication at that time and states that he stopped the medication and counseling. Patient has had no prior inpatient psychiatric treatment and his attempt to walk in front of a car occurred 15 years ago. He was recently at [facility] for heroin use and relapsed several months after discharge. Hospital Course: Patient was admitted on a voluntary basis, routine laboratory studies were ordered and a medical consultation was requested. Patient was ordered group and activity therapy and was placed on routine precautions. Patient was placed on medications for alcohol and heroin withdrawal. After being seen by the medical technologist prn the patient was also placed on Norvasc for an elevated blood pressure as well as given an antibiotic for 5 days for treatment of a phlebitis. Patient was started on Celexa to target his depression and was increased to a total dose of 20 mg a day. Patient was also begun on trazodone at 50 mg at bedtime to target his sleep with fair results. Patient did not participate in groups and activities due to complaining of feeling physically unwell, he was reporting stomach pain initially which resolved and he was able to eat without difficulty and he reported his sleep was restful but still somewhat disrupted. Patient did not want a referral for further inpatient substance use treatment and was requesting a referral for outpatient treatment. Patient was no longer voicing suicidal ideation, stating that he was no longer feeling hopeless or worthless and states that he was feeling much less depressed. Patient was eager to leave the hospital if he was being evicted from his home due to failure to pay rent, he was given referrals for shelters. Discharge Mental Status:Appearance/Attitude: Patient appears tired and kimberlee, dressed in street clothes with a hospital gown over top, making good eye contact and he is cooperative. Behavior: Patient does not display any psychomotor agitation or retardation. Speech/Language: Patient's speech is spontaneous, normal volume and rhythm and he is coherent. Thought Process: Patient is goal-directed and there is no evidence of circumstantial or tangential thought and no loose associations or flight of ideas. Thought Content: Patient denies any auditory or visual hallucinations and no delusions or paranoid ideation were elicited. Patient states that he is no longer feeling hopeless or helpless and states that he is not having any further withdrawal symptoms, stating that his stomach pain has resolved and he is eating well. Patient reports his sleep is still somewhat disrupted but more restful than it was. Patient states that he wants to consider Suboxone treatment for his addiction and states that he has no urge to use at this time. Suicidal/Homicidal Ideation: Patient denied any current suicidal or homicidal ideation and stated that he did not want to . Sensorium/Cognition: Patient is alert and oriented to person, place, and time and his memory is grossly intact. Mood/Affect: Patient's mood remains sad, his affect is slightly blunted. Insight/Judgement: Patient's insight and judgment are fair. Laboratory Last Values WBC 8.1 k/uL (3.8-10.6) 03/22/17 08:58 RBC 5.74 m/uL (4.30-5.90) 03/22/17 08:58 Hgb 17.7 gm/dL (13.0-17.5) H 03/22/17 08:58 Hct 54.9 % (39.0-53.0) H 03/22/17 08:58 MCV 95.6 fL (80.0-100.0) 03/22/17 08:58 MCH 30.8 pg (25.0-35.0) 03/22/17 08:58 MCHC 32.3 g/dL (31.0-37.0) 03/22/17 08:58 RDW 14.9 % (11.5-15.5) 03/22/17 08:58 Plt Count 261 k/uL (150-450) 03/22/17 08:58 Neutrophils % 67 % 03/22/17 08:58 Lymphocytes % 23 % 03/22/17 08:58 Monocytes % 4 % 03/22/17 08:58 Eosinophils % 2 % 03/22/17 08:58 Basophils % 1 % 03/22/17 08:58 Neutrophils # 5.5 k/uL (1.3-7.7) 03/22/17 08:58 Lymphocytes # 1.9 k/uL (1.0-4.8) 03/22/17 08:58 Monocytes # 0.4 k/uL (0-1.0) 03/22/17 08:58 Eosinophils # 0.2 k/uL (0-0.7) 03/22/17 08:58 Basophils # 0.1 k/uL (0-0.2) 03/22/17 08:58 Sodium 140 mmol/L (137-145) 03/22/17 08:58 Potassium 4.4 mmol/L (3.5-5.1) 03/22/17 08:58 Chloride 104 mmol/L (98-107) 03/22/17 08:58 Carbon Dioxide 26 mmol/L (22-30) 03/22/17 08:58 Anion Gap 10 mmol/L 03/22/17 08:58 BUN 13 mg/dL (9-20) 03/22/17 08:58 Creatinine 0.85 mg/dL (0.66-1.25) 03/22/17 08:58 Est GFR (MDRD) Af Amer >60 (>60 ml/min/1.73 sqM) 03/22/17 08:58 Est GFR (MDRD) Non-Af >60 (>60 ml/min/1.73 sqM) 03/22/17 08:58 Glucose 167 mg/dL (74-99) H 03/22/17 08:58 Calcium 9.4 mg/dL (8.4-10.2) 03/22/17 08:58 Total Bilirubin 0.8 mg/dL (0.2-1.3) 03/22/17 08:58 Conjugated Bilirubin 0.0 mg/dL (0.0-0.3) 03/22/17 08:58 Unconjugated Bilirubin 0.5 mg/dL (0.0-1.1) 03/22/17 08:58 Delta Bilirubin 0.3 mg/dL (0.0-0.2) H 03/22/17 08:58 AST 29 U/L (17-59) 03/22/17 08:58 ALT 43 U/L (21-72) 03/22/17 08:58 Alkaline Phosphatase 67 U/L (38-126) 03/22/17 08:58 Total Protein 7.3 g/dL (6.3-8.2) 03/22/17 08:58 Albumin 4.2 g/dL (3.5-5.0) 03/22/17 08:58 TSH 0.909 mIU/L (0.465-4.680) 03/22/17 08:58 Urine Opiates Screen Not Detected (NotDetected) 03/21/17 09:04 Ur Oxycodone Screen Not Detected (NotDetected) 03/21/17 09:04 Urine Methadone Screen Not Detected (NotDetected) 03/21/17 09:04 Ur Propoxyphene Screen Not Detected (NotDetected) 03/21/17 09:04 Ur Barbiturates Screen Not Detected (NotDetected) 03/21/17 09:04 U Tricyclic Antidepress Not Detected (NotDetected) 03/21/17 09:04 Ur Phencyclidine Scrn Not Detected (NotDetected) 03/21/17 09:04 Ur Amphetamines Screen Detected (NotDetected) H 03/21/17 09:04 U Methamphetamines Scrn Not Detected (NotDetected) 03/21/17 09:04 U Benzodiazepines Scrn Not Detected (NotDetected) 03/21/17 09:04 Urine Cocaine Screen Detected (NotDetected) H 03/21/17 09:04 U Marijuana (THC) Screen Detected (NotDetected) H 03/21/17 09:04 Hepatitis A IgM Ab NEGATIVE 03/22/17 08:58 Hep Bs Antigen Negative 03/22/17 08:58 Hep B Core IgM Ab NEGATIVE 03/22/17 08:58 Hep C IgG Ab Reactive (Negative) 03/22/17 08:58 Risk Assessment: Patient's risk for self-harm remains moderate due to his history of IV drug use, multiple substance use and alcohol use Discharge Plan: Patient will be discharged to his home, he was also given referrals for shelters should he be evicted and need housing. Patient will continue on Celexa 20 mg a day to target his depression and trazodone 50 mg at bedtime to target his sleep. Patient will also be given a prescription for nicotine patches as he wishes to stop smoking. He will also be given a prescription for Norvasc to control his blood pressure. [facility]. Patient did not require further treatment with antibiotics as he completed the course. Patient was encouraged to avoid any alcohol or drugs and discuss treatment for his hepatitis C with his PCP and follow up for treatment of his HTN. Patient Condition at Discharge: Stable Plan - Discharge Summary New Discharge Prescriptions: New amLODIPine [Norvasc] 5 mg PO DAILY #14 tab Citalopram Hydrobromide [CeleXA] 20 mg PO DAILY #14 tab Folic Acid 1 mg PO DAILY@1200 #28 tab Nicotine 14Mg/24Hr Patch [Habitrol] 1 patch TRANSDERM DAILY #28 patch Thiamine [Vitamin B-1] 100 mg PO DAILY@1200 #28 tab traZODone HCL [Desyrel] 50 mg PO HS #14 tab Discharge Medication List Citalopram Hydrobromide [CeleXA] 20 mg PO DAILY #14 tab 03/26/17 [Rx] Folic Acid 1 mg PO DAILY@1200 #28 tab 03/26/17 [Rx] Nicotine 14Mg/24Hr Patch [Habitrol] 1 patch TRANSDERM DAILY #28 patch 03/26/17 [ Rx] Thiamine [Vitamin B-1] 100 mg PO DAILY@1200 #28 tab 03/26/17 [Rx] amLODIPine [Norvasc] 5 mg PO DAILY #14 tab 03/26/17 [Rx] traZODone HCL [Desyrel] 50 mg PO HS #14 tab 03/26/17 [Rx] Follow up Appointment(s)/Referral(s): [facility] - [facility]01/17 11:30 am (Intake 04/01/17 at 11 :30 w/ Elizabeth Sanchez) Kandace Hamlin MD [Primary Care Provider] - 1-2 days Discharge Disposition: HOME SELF-CARE
[2017-03-26 13:38] VITALS: BP 123/77; PULSE 99
[2017-03-26] MEDS: LORazepam 1 MG TAB PO PRN (13:44)
== END 2017-03-26 14:18 | disposition home or self-care (01) | DRG 885 ==
LOC: EC 07:53 → 3MHU 11:27
PROVIDERS: ADMIT Psychiatry & Neurology Psychiatry; ATTEND Psychiatry & Neurology Psychiatry
DX: F32.1 Major depressive disorder, single episode, moderate (principal); R45.851 Suicidal ideations; I80.8 Phlebitis and thrombophlebitis of other sites; F11.23 Opioid dependence with withdrawal; T40.1X1A Poisoning by heroin, accidental (unintentional), initial encounter; F10.10 Alcohol abuse, uncomplicated; F14.90 Cocaine use, unspecified, uncomplicated; F15.90 Other stimulant use, unspecified, uncomplicated; I10 Essential (primary) hypertension; F41.1 Generalized anxiety disorder; G47.00 Insomnia, unspecified; K21.9 Gastro-esophageal reflux disease without esophagitis; G89.29 Other chronic pain; M54.9 Dorsalgia, unspecified; F17.200 Nicotine dependence, unspecified, uncomplicated; Z79.899 Other long term (current) drug therapy; Z90.49 Acquired absence of other specified parts of digestive tract
CPT/HCPCS: 80053; 80074; 80306; 82075; 82248; 84443; 85025; 99285

== ENCOUNTER 2017-10-08 09:27 | Inpatient (IN) | payer OTHER ==
[2017-10-08] MEDS ORDERED: IPRATROPIUM-ALBUTEROL 3 ML NEB INHALATION STA (09:54)
--- NOTE | 2017-10-08 09:58 | ED ---
General Adult HPI - General Chief complaint: Psychiatric Symptoms Stated complaint: Mental Health and Chest Pain Time Seen by Provider: 10/08/17 09:36 Source: patient, RN notes reviewed Mode of arrival: ambulatory Limitations: no limitations - History of Present Illness Initial comments: Patient is a 57-year-old male presenting today with chief complaint of suicidal ideation. He does admit that he has a plan. Patient states that he's more depressed lately because he just had a liver biopsy 2 days ago. He states he stayed in a retirement. He states he's had some diarrhea and there is only one bathroom there. He feels like he cannot go on like this. Patient also admits to history of asthma and does admit that he has an inhaler. Patient does admit that he does feel little wheezing this morning. Patient denies any homicidal thoughts or plans. Denies any visual or auditory hallucinations. Patient denies any recent fever, chills, shortness of breath, chest pain, back pain, numbness or tingling, dysuria or hematuria, constipation, headaches or visual changes, or any other complaints. - Related Data Home Medications Medication Instructions Recorded Confirmed Beclomethasone Dipropionate [Qvar 1 puff INHALATION RT-DAILY 10/08/17 10/08/17 80 mcg] Cefuroxime Axetil [Ceftin] 500 mg PO BID 10/08/17 10/08/17 Citalopram Hydrobromide [CeleXA] 40 mg PO DAILY 10/08/17 10/08/17 Furosemide [Lasix] 80 mg PO DAILY 10/08/17 10/08/17 HYDROcodone/APAP 5-325MG [[place] 1 tab PO QID PRN 10/08/17 10/08/17 5-325] Mirtazapine [Remeron] 15 mg PO HS 10/08/17 10/08/17 Omeprazole 20 mg PO DAILY 10/08/17 10/08/17 Propranolol [Inderal] 10 mg PO TID 10/08/17 10/08/17 Spironolactone [Aldactone] 25 mg PO DAILY 10/08/17 10/08/17 methylPREDNISolone Dose Pack See Taper PO DAILY 10/08/17 10/08/17 [Medrol Dose Pack] Allergies Allergy/AdvReac Type Severity Reaction Status Date / Time No Known Allergies Allergy Verified 10/08/17 10:23 Review of Systems ROS Statement: Those systems with pertinent positive or pertinent negative responses have been documented in the HPI. ROS Other: All systems not noted in ROS Statement are negative. Past Medical History Past Medical History: GERD/Reflux, Hypertension, Pneumonia Additional Past Medical History / Comment(s): chronic back pain History of Any Multi-Drug Resistant Organisms: None Reported Past Surgical History: Adenoidectomy, Appendectomy, Cholecystectomy, Orthopedic Surgery, Tonsillectomy Past Anesthesia/Blood Transfusion Reactions: No Reported Reaction Past Psychological History: Anxiety Smoking Status: Former smoker Past Alcohol Use History: None Reported, Abuse Past Drug Use History: None Reported, Heroin - Past Family History Mother History Unknown: Yes Additional Family Medical History / Comment(s): [facility] General Exam - General Exam Comments Initial Comments: General: The patient is awake and alert, in no distress, and does not appear acutely ill. Eye: Pupils are equal, round and reactive to light, extra-ocular movements are intact. No nystagmus. There is normal conjunctiva bilaterally. No signs of icterus. Ears, nose, mouth and throat: There are moist mucous membranes and no oral lesions. Neck: The neck is supple, there is no tenderness or JVD. Cardiovascular: There is a regular rate and rhythm. No murmur, rub or gallop is appreciated. Respiratory: Lungs are clear to auscultation, respirations are non-labored, breath sounds are equal. No wheezes, stridor, rales, or rhonchi. Musculoskeletal: Normal ROM, no tenderness. Strength 5/5. Sensation intact. Pulses equal bilaterally 2+. Neurological: A&O x 3. CN II-XII intact, There are no obvious motor or sensory deficits. Coordination appears grossly intact. Speech is normal. Skin: Skin is warm and dry and no rashes or lesions are noted. Psychiatric: Cooperative Limitations: no limitations Course Vital Signs 10/08/17 10/08/17 10/08/17 09:31 10:25 10:32 Temperature 97.0 F L Pulse Rate 79 72 77 Respiratory 18 Rate Blood Pressure 143/80 O2 Sat by Pulse 96 Oximetry 10/08/17 10/08/17 12:49 14:49 Temperature 98.9 F Pulse Rate 74 Respiratory 18 17 Rate Blood Pressure 108/68 O2 Sat by Pulse 96 Oximetry Medical Decision Making - Medical Decision Making Patient's labs been reviewed and does show elevation of the liver enzymes. Patient was recently admitted and released from [facility] just yesterday had a liver biopsy 2 days ago. Reports were obtained from [facility]. A CT was performed on 10/01/2017 and shows cirrhosis with underlying portal hypertension, obstructing central mass or more likely a masses /neoplasm is suspected. Cannot exclude a partial occlusion of the portal vein thrombosis. Patient's ultrasound report also reviewed shows a heterogeneous hyperechoic appearance of the liver is consistent with a particle diffuse fatty infiltration or underlying hepatocellular disease, later needs to be considered for fever given the presence of surrounding ascites. Patient does have history of hepatitis C. Also daily drinker. Is also history of IV heroin use. Patient presenting here to the emergency room today for suicidal thoughts. Has been seen by psych services in the emergency room. Patient's labs been reviewed and does show a 20,000 white count. Patient has been on outpatient antibiotics that he was started on yesterday when he was discharged. He is unsure the name. He will be given dose of Zosyn here in the emergency room cultures are currently pending patient will be admitted with consult to GI. Patient's discharge summary from with [facility] was obtained and shows the patient was to follow up with oncology. Medications were adjusted to include Qvar inhaler twice daily, Ceftin 500 mg twice a day for 5 days, Lasix 80 mg daily, lactulose one dose daily. Medrol Dosepak, omeprazole 20 mg daily, propranolol 10 mg 3 times a day, Raven alone 25 mg daily. - Lab Data Result diagrams: 10/08/17 10:57 10/08/17 10:57 Lab Results 10/08/17 10/08/17 10/08/17 Range/Units 10:40 10:57 10:57 WBC 20.8 H (3.8-10.6) k/uL RBC 4.62 (4.30-5.90) m/uL Hgb 13.2 (13.0-17.5) gm/dL Hct 41.6 (39.0-53.0) % MCV 90.2 (80.0-100.0) fL MCH 28.6 (25.0-35.0) pg MCHC 31.7 (31.0-37.0) g/dL RDW 15.0 (11.5-15.5) % Plt Count 277 (150-450) k/uL Neutrophils % 85 % Lymphocytes % 8 % Monocytes % 5 % Eosinophils % 1 % Basophils % 0 % Neutrophils # 17.6 H (1.3-7.7) k/uL Lymphocytes # 1.7 (1.0-4.8) k/uL Monocytes # 1.1 H (0-1.0) k/uL Eosinophils # 0.2 (0-0.7) k/uL Basophils # 0.1 (0-0.2) k/uL Hypochromasia Slight Sodium 138 (137-145) mmol/L Potassium 4.5 (3.5-5.1) mmol/L Chloride 102 (98-107) mmol/L Carbon Dioxide 24 (22-30) mmol/L Anion Gap 12 mmol/L BUN 23 H (9-20) mg/dL Creatinine 0.71 (0.66-1.25) mg/dL Est GFR (CKD-EPI)AfAm >90 (>60 ml/min/1.73 sqM) Est GFR (CKD-EPI)NonAf >90 (>60 ml/min/1.73 sqM) Glucose 92 (74-99) mg/dL Plasma Lactic Acid Nish (0.7-2.0) mmol/L Calcium 8.4 (8.4-10.2) mg/dL Total Bilirubin 3.4 H (0.2-1.3) mg/dL AST 306 H (17-59) U/L ALT 226 H (21-72) U/L Alkaline Phosphatase 927 H (38-126) U/L Total Protein 7.2 (6.3-8.2) g/dL Albumin 3.3 L (3.5-5.0) g/dL Lipase 315 H (23-300) U/L Urine Color Dark Yellow Urine Appearance Clear (Clear) Urine pH 6.5 (5.0-8.0) Ur Specific [place] 1.019 (1.001-1.035) Urine Protein Trace H (Negative) Urine Glucose (UA) Negative (Negative) Urine Ketones Negative (Negative) Urine Blood Negative (Negative) Urine Nitrite Negative (Negative) Urine Bilirubin 1+ H (Negative) Urine Urobilinogen <2.0 (<2.0) mg/dL Ur Leukocyte Esterase Negative (Negative) Urine Opiates Screen Detected H (NotDetected) Ur Oxycodone Screen Not Detected (NotDetected) Urine Methadone Screen Not Detected (NotDetected) Ur Propoxyphene Screen Not Detected (NotDetected) Ur Barbiturates Screen Not Detected (NotDetected) U Tricyclic Antidepress Not Detected (NotDetected) Ur Phencyclidine Scrn Not Detected (NotDetected) Ur Amphetamines Screen Not Detected (NotDetected) U Methamphetamines Scrn Not Detected (NotDetected) U Benzodiazepines Scrn Not Detected (NotDetected) Urine Cocaine Screen Not Detected (NotDetected) U Marijuana (THC) Screen Not Detected (NotDetected) 10/08/17 Range/Units 14:05 WBC (3.8-10.6) k/uL RBC (4.30-5.90) m/uL Hgb (13.0-17.5) gm/dL Hct (39.0-53.0) % MCV (80.0-100.0) fL MCH (25.0-35.0) pg MCHC (31.0-37.0) g/dL RDW (11.5-15.5) % Plt Count (150-450) k/uL Neutrophils % % Lymphocytes % % Monocytes % % Eosinophils % % Basophils % % Neutrophils # (1.3-7.7) k/uL Lymphocytes # (1.0-4.8) k/uL Monocytes # (0-1.0) k/uL Eosinophils # (0-0.7) k/uL Basophils # (0-0.2) k/uL Hypochromasia Sodium (137-145) mmol/L Potassium (3.5-5.1) mmol/L Chloride (98-107) mmol/L Carbon Dioxide (22-30) mmol/L Anion Gap mmol/L BUN (9-20) mg/dL Creatinine (0.66-1.25) mg/dL Est GFR (CKD-EPI)AfAm (>60 ml/min/1.73 sqM) Est GFR (CKD-EPI)NonAf (>60 ml/min/1.73 sqM) Glucose (74-99) mg/dL Plasma Lactic Acid Nish 1.5 (0.7-2.0) mmol/L Calcium (8.4-10.2) mg/dL Total Bilirubin (0.2-1.3) mg/dL AST (17-59) U/L ALT (21-72) U/L Alkaline Phosphatase (38-126) U/L Total Protein (6.3-8.2) g/dL Albumin (3.5-5.0) g/dL Lipase (23-300) U/L Urine Color Urine Appearance (Clear) Urine pH (5.0-8.0) Ur Specific [place] (1.001-1.035) Urine Protein (Negative) Urine Glucose (UA) (Negative) Urine Ketones (Negative) Urine Blood (Negative) Urine Nitrite (Negative) Urine Bilirubin (Negative) Urine Urobilinogen (<2.0) mg/dL Ur Leukocyte Esterase (Negative) Urine Opiates Screen (NotDetected) Ur Oxycodone Screen (NotDetected) Urine Methadone Screen (NotDetected) Ur Propoxyphene Screen (NotDetected) Ur Barbiturates Screen (NotDetected) U Tricyclic Antidepress (NotDetected) Ur Phencyclidine Scrn (NotDetected) Ur Amphetamines Screen (NotDetected) U Methamphetamines Scrn (NotDetected) U Benzodiazepines Scrn (NotDetected) Urine Cocaine Screen (NotDetected) U Marijuana (THC) Screen (NotDetected) Disposition Clinical Impression: Liver cirrhosis, Liver mass, Leukocytosis, Suicidal ideation Disposition: ADMITTED IP TO THIS [facility] Condition: Stable Referrals: None,Stated [Primary Care Provider] - 1-2 days Time of Disposition: 13:43
[2017-10-08 10:54] LABS: Appearance,Urine Clear (Clear); Bilirubin,Urine 1+ (Negative); Blood,Urine Negative (Negative); Color,Urine Dark Yellow; Glucose,Urine (UA) Negative (Negative); Ketones,Urine Negative (Negative); Leukocyte Esterase,Urine Negative (Negative); Nitrite,Urine Negative (Negative); PH, Urine 6.5 (5.0-8.0); Protein,Urine Trace (Negative); Specific Gravity,Urine 1.019 (1.001-1.035); Urobilinogen,Urine <2.0 mg/dL (<2.0)
[2017-10-08 11:07] LABS: Amphetamine Screen,Urine Not Detected (NotDetected); Barbiturate Screen,Urine Not Detected (NotDetected); Benzodiazepines Screen,Urine Not Detected (NotDetected); Cocaine Screen,Urine Not Detected (NotDetected); Methadone Screen, Urine Not Detected (NotDetected); Opiate Screen,Urine Detected (NotDetected); Oxycodone Screen, Urine Not Detected (NotDetected); Phencyclidine Screen,Urine Not Detected (NotDetected); Tricyclic Antidepressant,Urine Not Detected (NotDetected); Urn Cannabinoid Scrn Not Detected (NotDetected)
[2017-10-08 11:11] LABS: Basophils # (A) 0.1 k/uL (0-0.2); Basophils % (A) 0 %; Eosinophils # (A) 0.2 k/uL (0-0.7); Eosinophils % (A) 1 %; HCT 41.6 % (39.0-53.0); HGB 13.2 gm/dL (13.0-17.5); Hypochromasia Slight; Lymphocytes # (A) 1.7 k/uL (1.0-4.8); Lymphocytes % (A) 8 %; MCH 28.6 pg (25.0-35.0); MCHC 31.7 g/dL (31.0-37.0); MCV 90.2 fL (80.0-100.0); Mean Platelet Volume 8.8; Monocytes # (A) 1.1 k/uL (0-1.0); Monocytes % (A) 5 %; Neutrophils # (A) 17.6 k/uL (1.3-7.7); Neutrophils % (A) 85 %; Platelet Count 277 k/uL (150-450); RBC 4.62 m/uL (4.30-5.90); WBC 20.8 k/uL (3.8-10.6)
[2017-10-08 11:27] LABS: ALT 226 U/L (21-72); AST 306 U/L (17-59); Albumin 3.3 g/dL (3.5-5.0); Alkaline Phosphatase 927 U/L (38-126); Anion Gap 12 mmol/L; Blood Urea Nitrogen 23 mg/dL (9-20); Calcium 8.4 mg/dL (8.4-10.2); Carbon Dioxide 24 mmol/L (22-30); Chloride 102 mmol/L (98-107); Glucose 92 mg/dL (74-99); Lipase 315 U/L (23-300); Potassium 4.5 mmol/L (3.5-5.1); Sodium 138 mmol/L (137-145); Total Bilirubin 3.4 mg/dL (0.2-1.3); Total Protein 7.2 g/dL (6.3-8.2)
[2017-10-08] MEDS ORDERED: SODIUM CHLORIDE 0.9% 1,000 ML IV STA (13:16)
[2017-10-08] MEDS ORDERED: PIPERACILLIN-TAZOBACTAM 3.375 GM in DEXTROSE/WATER 1 50ML.BAG IVPB STA (13:16)
[2017-10-08] MEDS ORDERED: MORPHINE SULFATE 4 MG/ML SYRINGE IV STA (13:45)
[2017-10-08] MEDS ORDERED: ONDANSETRON 4 MG/2 ML VIAL IVP STA (13:45)
[2017-10-08] MEDS ORDERED: NALOXONE 0.4 MG/ML 1 ML VIAL IV PRN (15:17)
[2017-10-08] MEDS ORDERED: ACETAMINOPHEN TAB 325 MG TAB PO PRN (15:17)
[2017-10-08] MEDS ORDERED: ONDANSETRON 4 MG/2 ML VIAL IVP PRN (15:17)
[2017-10-08] MEDS: MORPHINE SULFATE 4 MG/ML SYRINGE IV PRN ×2 (19:12→23:44)
[2017-10-08 20:20] VITALS: BMI 25.8
[2017-10-08] MEDS: PROPRANOLOL 10 MG TAB PO SCH (21:19)
[2017-10-08] MEDS: MIRTAZAPINE 15 MG TAB PO SCH (21:19)
--- NOTE | 2017-10-08 21:34 | HP ---
HISTORY AND PHYSICAL CHIEF COMPLAINTS: Suicidal ideations and abdominal pain. HISTORY OF PRESENT ILLNESS: This 57-year-old gentleman with a past medical history of chronic hepatitis C, history of hypertension, history of pneumonia, history of appendectomy, history of anxiety and also history of polysubstance abuse, being followed by Dr. Jeronimo in the outpatient setting, was recently admitted to [facility] for evaluation of abdominal swelling and probably mass/cirrhosis of the liver. The patient apparently had a biopsy. Patient went to the [facility] and subsequently patient was having diarrhea. At the [facility] there is only one bathroom. The patient also had some suicidal ideations. Patient came to [facility] emergency room and was admitted for further evaluation and treatment. There is no history of any fever, rigor or chills. No history of headache, loss of consciousness, seizures. PAST MEDICAL HISTORY: 1. GERD. 2. Hypertension. 3. History of pneumonia. 4. History of chronic back pain. 5. History of polysubstance abuse. 6. History of anxiety. MEDICATIONS PRIOR TO ADMISSION: 1. Medrol Dosepak. 2. Aldactone 25 mg daily. 3. Inderal 10 mg t.i.d. 4. Omeprazole 20 mg daily. 5. Remeron 15 mg at bedtime. 6. Hydrocodone 1 tablet q.i.d. p.r.n. 7. Lasix 80 mg p.o. daily. 8. Celexa 40 mg daily. 9. Ceftin 500 mg p.o. b.i.d. 10.Qvar 80 mg p.o. daily. ALLERGIES: NONE. FAMILY HISTORY: History of Luis Armando's in the family. SOCIAL HISTORY: History of heroin abuse. Previous history of smoking. History of polysubstance abuse. REVIEW OF SYSTEMS: ENT: No diminished hearing. No diminished vision. CARDIOVASCULAR SYSTEM: No angina, palpitations. RESPIRATORY SYSTEM: As mentioned earlier. GI: As mentioned earlier. : No dysuria or retention. NERVOUS SYSTEM: As mentioned earlier. ALLERGY/IMMUNOLOGY: No asthma, hayfever. MUSCULOSKELETAL: As mentioned earlier. HEMATOLOGY/ONCOLOGY: No history of anemia. ENDOCRINE: No history of diabetes, hypothyroidism. CONSTITUTIONAL: As mentioned earlier. DERMATOLOGY: Negative. RHEUMATOLOGY: Negative. PSYCHIATRY: As mentioned earlier. PHYSICAL EXAMINATION: Patient alert and oriented x3. Pulse 74, blood pressure 108/60, respiration 17, temperature 98.9, pulse ox 96% on room air. HEENT: Conjunctivae normal. Oral mucosa moist. NECK: No jugular venous distention. No carotid bruit. No lymph node enlargement. CARDIOVASCULAR SYSTEM: S1, S2 muffled. No S3. No S4. RESPIRATORY SYSTEM: Breath sounds diminished at the bases. A few scattered rhonchi and crackles. ABDOMEN: Soft. Obese. Minimal ascites present and some minimal tenderness. No guarding. No rigidity. No mass palpable. Bowel sounds present. LEGS: No edema. No swelling. NERVOUS SYSTEM: Higher functions as mentioned earlier. Moves all 4 limbs. No focal motor or sensory deficit. LYMPHATICS: No lymph node palpable in neck, axillae or groin. SKIN: No ulcer, rash, bleeding. LABS: WBC 20.8, hemoglobin 13.2. BUN is 12, total bilirubin 3.4, AST 306. ALT is 226. Lipase was 315. Drug screen positive for opiates. ASSESSMENT: 1. Abdominal pain, ascites, possibly secondary to cirrhosis of the liver. 2. History of recent liver biopsy. 3. Elevated AST, ALT; possibly hepatitis C. 4. Elevated alkaline phosphatase; rule out obstructive jaundice. 5. Elevated lipase. 6. Increased white count. 7. Diarrhea for evaluation; rule out Clostridium difficile colitis. 8. Anxiety. 9. Remote history of nicotine dependence. 10.Gastroesophageal reflux disease. 11.Hypertension. 12.History of pneumonia. 13.Chronic back pain, degenerative joint disease. 14.History of polysubstance abuse, including heroin and alcohol. 15.FULL CODE. RECOMMENDATIONS AND DISCUSSION: In this 57-year-old gentleman who presented with multiple complex medical issues., we will we will monitor the patient closely, continue the current medications, continue with symptomatic treatment. Will initiate broad-spectrum IV antibiotics. Cultures. Infectious disease evaluation. Otherwise I would also recommend checking C difficile. Symptomatic treatment. Repeat labs. Prognosis guarded because of multiple complex medical issues. Obtain old records from [facility]. Further recommendations to follow. A copy of this dictation is being forwarded to Dr. Jeronimo, who is the primary physician. Prognosis guarded. See orders for further details. Await liver biopsy report. MMODL / IJN: [id number] /
[2017-10-08] MEDS: PIPERACILLIN-TAZOBACTAM 3.375 GM in DEXTROSE/WATER 1 50ML.BAG IVPB SCH (23:29)
[2017-10-09] MEDS: MORPHINE SULFATE 4 MG/ML SYRINGE IV PRN ×2 (06:13→11:59)
[2017-10-09] MEDS: BUDESONIDE 0.5 MG/2 ML NEBU INHALATION SCH (07:29)
[2017-10-09 07:43] LABS: Basophils # (A) 0.1 k/uL (0-0.2); Basophils % (A) 1 %; Eosinophils # (A) 0.1 k/uL (0-0.7); Eosinophils % (A) 1 %; HCT 38.1 % (39.0-53.0); HGB 11.8 gm/dL (13.0-17.5); Hypochromasia Moderate; Lymphocytes # (A) 2.2 k/uL (1.0-4.8); Lymphocytes % (A) 20 %; MCH 28.2 pg (25.0-35.0); MCV 91.1 fL (80.0-100.0); Mean Platelet Volume 8.8; Monocytes # (A) 0.9 k/uL (0-1.0); Monocytes % (A) 8 %; Neutrophils # (A) 7.6 k/uL (1.3-7.7); Neutrophils % (A) 68 %; Platelet Count 209 k/uL (150-450); RBC 4.18 m/uL (4.30-5.90); RDW 15.1 % (11.5-15.5); WBC 11.3 k/uL (3.8-10.6)
[2017-10-09 07:57] LABS: ALT 200 U/L (21-72); AST 227 U/L (17-59); Albumin 2.7 g/dL (3.5-5.0); Alkaline Phosphatase 631 U/L (38-126); Anion Gap 10 mmol/L; Blood Urea Nitrogen 24 mg/dL (9-20); Calcium 7.7 mg/dL (8.4-10.2); Carbon Dioxide 22 mmol/L (22-30); Chloride 106 mmol/L (98-107); Glucose 93 mg/dL (74-99); Sodium 138 mmol/L (137-145); Total Bilirubin 2.3 mg/dL (0.2-1.3); Total Protein 6.1 g/dL (6.3-8.2)
[2017-10-09] MEDS: SPIRONOLACTONE 25 MG TAB PO SCH (09:20)
[2017-10-09] MEDS: PROPRANOLOL 10 MG TAB PO SCH ×3 (09:20→21:26)
[2017-10-09] MEDS: PIPERACILLIN-TAZOBACTAM 3.375 GM in DEXTROSE/WATER 1 50ML.BAG IVPB SCH ×2 (09:20→17:55)
[2017-10-09] MEDS: PANTOPRAZOLE 40 MG TABLET PO SCH (09:20)
[2017-10-09] MEDS: CITALOPRAM HYDROBROMIDE 20 MG TAB PO SCH (09:20)
[2017-10-09] MEDS: FUROSEMIDE 80 MG TAB PO SCH (09:20)
--- NOTE | 2017-10-09 11:01 | P.CONS ---
History of Present Illness - Reason for Consult Consult date: 10/09/17 cirrhosis Requesting physician: Mansi Howe - History of Present Illness 57-year-old homeless gentleman recently hospitalized at [facility] last week with acute upper GI bleed secondary to esophageal varices. He has a past medical history of perimesencephalic subarachnoid hemorrhage 2015, cholecystectomy, active intravenous heroin abuse 7 years last usage 5 months ago, chronic hepatitis C with incomplete antiviral therapy 1998, EtOH abuse with underlying alcohol liver cirrhosis. He underwent EGD evaluation a week ago with findings of nonbleeding large mid and distal esophageal varices status post variceal banding. CT abdomen and pelvis as well as MRI imaging reported a lobulated peripheral nodular contour liver, ascites, as well as a heterogeneous infiltrative type pattern involving the anterior liver in the right and left lobe neoplastic process could not be excluded. No evidence of pancreatic mass. Paracentesis was not performed secondary to insufficient fluid. AFP marker elevated 3831. He underwent ultrasound-guided core liver biopsy on 10/06/2017 pathology is still pending. Patient was residing in a halfway after discharge a few days ago and developed increased abdominal distention diarrhea and sent to [facility] for further evaluation. He describes his bowel movements as being dark. Discharge hemoglobin on 10/07/2017 was 11.7. Platelet 182. White count 7.4. INR 1.0. Admission hemoglobin 13.2 presently 11.8. White count was 20.8 presently 11.3. Total bilirubin 2.3-3.4. AST 227-306. ALT 200-226. Alkaline phosphatase 631 -927. He remains afebrile. Denies gross hematochezia or hematemesis. Review of Systems Constitutional: Denies fever, chills, sweats, weight gain, or loss. HEENT: History of intracranial subarachnoid hemorrhage. Negative for migraines , blurred vision or loss, earaches, drainage, tinnitus, oral mucosal lesions, dysphagia, or odynophagia. Cardiac: Negative for chest pain, arrhythmias, or palpitation. Respiratory: Negative for shortness of breath, hemoptysis, cough, or sputum production. Gastrointestinal: See HPI for pertinent findings. Genitourinary: Negative for hematuria, urgency, frequency, polyuria, dysuria, or penile discharge. Musculoskeletal: Negative for muscle aches, swelling, arthritis, and arthralgias. Neurologic: Negative for stroke or TIA. Endocrine: Negative for thyroid problems. Skin: Negative for rash or itching. Psychiatric: Negative history for depression and anxiety Past Medical History Past Medical History: GERD/Reflux, Hypertension, Pneumonia Additional Past Medical History / Comment(s): chronic back pain History of Any Multi-Drug Resistant Organisms: None Reported Past Surgical History: Adenoidectomy, Appendectomy, Cholecystectomy, Orthopedic Surgery, Tonsillectomy Past Anesthesia/Blood Transfusion Reactions: No Reported Reaction Past Psychological History: Anxiety Smoking Status: Former smoker Past Alcohol Use History: None Reported, Abuse Additional Past Alcohol Use History / Comment(s): 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", 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13 Past Drug Use History: None Reported, Heroin Additional Drug Use History / Comment(s): iv heroin - pt states last use 6 months ago about april 2016 - Past Family History Mother History Unknown: Yes Additional Family Medical History / Comment(s): [place] Medications and Allergies Home Medications Medication Instructions Recorded Confirmed Type Beclomethasone Dipropionate [Qvar 1 puff INHALATION RT-DAILY 10/08/17 10/08/17 History 80 mcg] Cefuroxime Axetil [Ceftin] 500 mg PO BID 10/08/17 10/08/17 History Citalopram Hydrobromide [CeleXA] 40 mg PO DAILY 10/08/17 10/08/17 History Furosemide [Lasix] 80 mg PO DAILY 10/08/17 10/08/17 History HYDROcodone/APAP 5-325MG [[place] 1 tab PO QID PRN 10/08/17 10/08/17 History 5-325] Mirtazapine [Remeron] 15 mg PO HS 10/08/17 10/08/17 History Omeprazole 20 mg PO DAILY 10/08/17 10/08/17 History Propranolol [Inderal] 10 mg PO TID 10/08/17 10/08/17 History Spironolactone [Aldactone] 25 mg PO DAILY 10/08/17 10/08/17 History methylPREDNISolone Dose Pack See Taper PO DAILY 10/08/17 10/08/17 History [Medrol Dose Pack] Allergies Allergy/AdvReac Type Severity Reaction Status Date / Time No Known Allergies Allergy Verified 10/08/17 10:23 Physical Exam Vitals: Vital Signs Temp Pulse Pulse Resp BP BP Pulse Ox 10/09/17 07:39 70 10/09/17 07:32 64 10/09/17 07:00 97.5 F L 70 18 116/61 94 L 10/09/17 00:00 78 16 10/08/17 20:00 97.8 F 78 16 105/71 95 10/08/17 17:14 64 16 118/66 96 10/08/17 14:49 98.9 F 74 17 108/68 96 10/08/17 12:49 18 Intake and Output 10/08/17 10/09/17 10/09/17 22:59 06:59 14:59 Intake Total 50 Balance 50 Intake: Intake, IV Titration 50 Amount Piperacillin-Tazobactam 3 50 .375 gm In Dextrose/Water 1 50ml.bag @ 12.5 mls/hr IVPB Q8HR [facility] Rx#: [id number] Other: # Voids 1 # Bowel Movements 1 Weight 72.57 kg General appearance: The patient is alert, oriented, in no acute distress. HET: Head is normocephalic and atraumatic. Pupils are equal and reactive. Oropharynx is clear without lesions. Neck: Supple without lymphadenopathy. Trachea midline. Heart: S1 S2. Regular rate and rhythm. Lungs: No crackles or wheezes are heard. Abdomen: Soft, nontender, distended with mild to moderate ascites with bowel sounds. No peritoneal signs. No palpable organomegaly or masses. Extremities: Normal skin color and turgor. No cyanosis, rash, ulceration, clubbing, or edema. Radial and pedal pulses are 2/4 bilaterally. Neurological: No focal deficits. Strength and sensation are grossly intact. Results CBC & Chem 7: 10/09/17 07:15 10/09/17 07:15 Labs: Abnormal Lab Results - Last 24 Hours (Table) 10/08/17 10/08/17 10/08/17 Range/Units 10:40 10:57 10:57 WBC 20.8 H (3.8-10.6) k/uL RBC (4.30-5.90) m/uL Hgb (13.0-17.5) gm/dL Hct (39.0-53.0) % Neutrophils # 17.6 H (1.3-7.7) k/uL Monocytes # 1.1 H (0-1.0) k/uL BUN 23 H (9-20) mg/dL Calcium (8.4-10.2) mg/dL Total Bilirubin 3.4 H (0.2-1.3) mg/dL AST 306 H (17-59) U/L ALT 226 H (21-72) U/L Alkaline Phosphatase 927 H (38-126) U/L Ammonia (<30) umol/L Total Protein (6.3-8.2) g/dL Albumin 3.3 L (3.5-5.0) g/dL Lipase 315 H (23-300) U/L Urine Opiates Screen Detected H (NotDetected) 10/08/17 10/09/17 10/09/17 Range/Units 19:43 07:15 07:15 WBC 11.3 H (3.8-10.6) k/uL RBC 4.18 L (4.30-5.90) m/uL Hgb 11.8 L (13.0-17.5) gm/dL Hct 38.1 L (39.0-53.0) % Neutrophils # (1.3-7.7) k/uL Monocytes # (0-1.0) k/uL BUN 24 H (9-20) mg/dL Calcium 7.7 L (8.4-10.2) mg/dL Total Bilirubin 2.3 H (0.2-1.3) mg/dL AST 227 H (17-59) U/L ALT 200 H (21-72) U/L Alkaline Phosphatase 631 H (38-126) U/L Ammonia 30 H (<30) umol/L Total Protein 6.1 L (6.3-8.2) g/dL Albumin 2.7 L (3.5-5.0) g/dL Lipase (23-300) U/L Urine Opiates Screen (NotDetected) Assessment and Plan (1) Diarrhea Narrative/Plan: 57-year-old gentleman recently hospitalized with acute upper GI bleed secondary to esophageal varices status post EGD with banding 1 week ago with underlying alcohol liver cirrhosis portal hypertension and ascites with suspected infiltrative liver mass elevated alpha-fetoprotein marker suspicious for primary liver malignancy possible hepatocellular carcinoma status post ultrasound guided liver core biopsy 10/06/2017 with biopsies pending. Current Visit: Yes Status: Acute Code(s): R19.7 - DIARRHEA, UNSPECIFIED SNOMED Code(s): 46850055 (2) Chronic hepatitis C Current Visit: Yes Status: Acute Code(s): B18.2 - CHRONIC VIRAL HEPATITIS C SNOMED Code(s): 319523319 (3) H/O ETOH abuse Current Visit: Yes Status: Acute Code(s): Z87.898 - PERSONAL HISTORY OF OTHER SPECIFIED CONDITIONS SNOMED Code(s): 567004097 (4) Heroin abuse Current Visit: Yes Status: Acute Code(s): F11.10 - OPIOID ABUSE, UNCOMPLICATED SNOMED Code(s): 9641716 (5) Elevated liver enzymes Current Visit: Yes Status: Acute Code(s): R74.8 - ABNORMAL LEVELS OF OTHER SERUM ENZYMES SNOMED Code(s): 622121472 (6) History of esophageal varices with bleeding Current Visit: Yes Status: Acute Code(s): Z87.19 - PERSONAL HISTORY OF OTHER DISEASES OF THE DIGESTIVE SYSTEM SNOMED Code(s): 498437511 (7) Leukocytosis Current Visit: Yes Status: Acute Code(s): D72.829 - ELEVATED WHITE BLOOD CELL COUNT, UNSPECIFIED SNOMED Code(s): 398913372 (8) Liver cirrhosis Current Visit: Yes Status: Acute Code(s): K74.60 - UNSPECIFIED CIRRHOSIS OF LIVER SNOMED Code(s): 52401076 (9) Liver mass Current Visit: Yes Status: Acute Code(s): R16.0 - HEPATOMEGALY, NOT ELSEWHERE CLASSIFIED SNOMED Code(s): 702928820 (10) Ascites Current Visit: Yes Status: Acute Code(s): R18.8 - OTHER ASCITES SNOMED Code(s): 555867061 (11) Portal hypertension Current Visit: Yes Status: Acute Code(s): K76.6 - PORTAL HYPERTENSION SNOMED Code(s): 28425338 (12) Homelessness Current Visit: Yes Status: Acute Code(s): Z59.0 - HOMELESSNESS SNOMED Code (s): 36175713 Plan: 1. Low-salt diet. 2. Ultrasound abdomen for assessment of ascites possible therapeutic diagnostic paracentesis. 3. Stool studies for evaluation of diarrhea. Supportive measures. Social work consult. GI prophylaxis Protonix 40 mg daily. Thank you for this kind referral and the opportunity to participate in the care of your patient. This consultation was discussed with Dr. Rdz. The impression and plan of care have been directed as dictated.
--- NOTE | 2017-10-09 12:56 | US ---
EXAMINATION TYPE: US abdomen limited DATE OF EXAM: 10/09/2017 COMPARISON: NONE CLINICAL HISTORY: ascites. Ascites check. Small amount of fluid seen within RUQ, RLQ and LLQ. Heterogeneous liver echotexture incidentally noted compatible with patient's known cirrhosis. IMPRESSION: Small amount of ascites. Cirrhosis.
--- NOTE | 2017-10-09 16:05 | P.CN ---
Psychiatric Consult - . Consult date: 10/09/17 Consult:: 10/09/17 15:48 Identification: Patient is a 57-year-old male who was admitted with complaints of abdominal pain Reason for Consult: Consultation was requested secondary to suicidal ideation History of Present Illness: Patient's chart was reviewed, the patient is known to me, patient was seen and interviewed in his room no family members were present. Patient states that shortly after his discharge from the psychiatric unit here in March 2017 that he was arrested for stealing me and was in prison until he was released and sent to [facility]. Patient states that in prison he was complaining of pain and they eventually sent him to the hospital. Patient states that his medications in prison were changed to Remeron 15 mg at bedtime and Celexa was increased to 40 mg a day. Patient states that he has been drug and alcohol free since his discharge in March as he went to prison the night of his discharge. He states when he returned to his apartment it was boarded up and he had no place to live. Patient states that when he was released from [facility] he went to live in a group home and states that one of the medications he was given was causing him to use the bathroom quite frequently. Patient had been seen in March 2017 feeling suicidal after he had attempted to overdose on heroin 4 days prior to admission. At that time the patient had been using IV heroin, alcohol and crack cocaine and methamphetamine for 2 weeks prior to admission secondary to the of his girlfriend secondary to sepsis. Patient had recently been at [facility] and had relapsed several months after his discharge. Patient had a history of using IV heroin for 7 years. He reported at that time symptoms of depression with hopelessness and helplessness since his girlfriend's and had not been eating or sleeping well. At that time the patient verbalized suicidal ideation and states that he attempted to overdose on heroin but did not have sufficient quantity. Patient states that he had had a depressive episode in the past over 15 years ago when he tried to walk in front of a car and was seen as an outpatient placed on medication and quit counseling shortly thereafter. Patient is currently endorsing suicidal thoughts because he can't take the pain anymore, stating to me that he feels bad and thinking his suicide because he can 't deal with the pain stating that it started over 6 months ago. Patient states that the pain is better controlled today than it was yesterday. He states his pain was better controlled when he was at [facility] but since his discharge has not been. Patient has no current plan but states that the pain needs to be controlled. Past Psychiatric History: Patient has 1 prior psychiatric admission that was here in March 2017. Patient had been seen 15 years earlier for outpatient counseling and treated with unknown medications at that time after he attempted suicide by walking in front of a car. Patient had been at [facility] several months prior to his admission in March for his heroin use and relapsed several months after discharge. Past Medical/Surgical History: Patient has a history of hypertension, GERD, hepatitis C positive and states that he is status post appendectomy, cholecystectomy and is also status post subarachnoid bleed. Patient was recently admitted for an upper GI bleed secondary to esophageal varices. Family History: Patient denied any family history of psychiatric illness and states his father abused alcohol and that numerous members of his father's family did as well. Social History: Both of the patient's parents are , he has 6 siblings 3 of whom are . He has no contact with his siblings. 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 He had last worked over 5 years ago. He has been twice and has been on both occasions. He has no children. Patient has no source of support, when he was last on the psychiatric unit he reported that his girlfriend been on disability and she was supporting them financially. Substance Use History: Patient began using alcohol. 12 and had last used over 7 years ago when he began drinking prior to his admission in March 2017 to the psychiatric unit. Patient at that time was drinking a sixpack of beer as well as a half a pint of liquor but he states that he has not had any alcohol since his discharge because he has been in prison. Patient also began using marijuana at the age of 12 until he was 34 years of age. He began using IV heroin 7 years ago and was clean from heroin for several months after his discharge from [facility]. Patient began using IV heroin again after the of his girlfriend but states that he has not used any drugs since his discharge in March 2017 secondary to his being in prison. He has a past history of using methamphetamine, Adderall, crack cocaine and Xanax. Legal History: Patient has been charged with a DUI, breaking and entering, robbery and has been to [facility] the last time being from 1994- 2004. Mental status: Appearance/Attitude: Patient is lying in a hospital bed, appears slightly groggy and in pain, he was cooperative Behavior: Patient did not exhibit any psychomotor agitation or retardation. Speech/Language: Patient's speech was spontaneous, he spoke in a soft voice and was coherent Thought Process: patient was goal-directed, is no evidence of circumstantial or tangential thought. Thought Content: patient denied any auditory or visual hallucinations no delusions or paranoid ideation were elicited. Patient states that he is just tired of feeling sick and tired of having pain and can't deal with the pain any further. Patient states that it's been going on for 6 months and he wants to and. Suicidal/Homicidal Ideation: patient reported suicidal ideation secondary to the pain but states he has no plan and denies any current homicidal ideation Sensorium/Cognition: patient is alert and oriented to person and place further cognitive testing was not performed at this time. Mood/Affect: patient's mood is depressed, and his affect is blunted Insight/Judgment: patient's insight and judgment are fair Assessment: patient presented to the hospital complaining of abdominal pain and has recently been discharged from another facility where he was diagnosed with an upper GI bleed and esophageal varices and they have done a liver biopsy. Patient states that since his discharge from the psychiatric unit in March 2017 that he went to prison the night of discharge and has not been using any alcohol or drugs since that time. Patient states that he began having pain in prison and he was eventually sent to the hospital for assessment. Patient states once he was discharged from [facility] and sent to a group home he had diarrhea from the medication he was being given in his pain was not well controlled and so he returned to the emergency room. Patient states that in prison his medications were changed from Celexa and trazodone to Remeron and Celexa. Diagnosis: major depressive disorder, recurrent; opiate use disorder in early remission while in a controlled environment Plan: Patient is currently on Remeron 15 mg at bedtime and Celexa 40 mg daily for his depression at this time secondary to his elevated liver enzymes I will not increase his medications. Patient's current complaints of suicidal ideation or secondary to his pain, as his pain is better controlled will reevaluate his suicidal ideation. Would continue with one-to-one supervision secondary to his suicidal ideation. Will continue to follow the patient while he is in the hospital and assess his response to treatment as well as adjust if needed his psychotropic medication. 10/09/17 16:03
--- NOTE | 2017-10-09 16:08 | PN ---
PROGRESS NOTE DATE OF SERVICE: 10/09/2017. INTERVAL HISTORY: This 57-year-old gentleman who was admitted with suicidal ideation, abdominal pain, also had some diarrhea too. The patient being closely monitored. Please note the patient recently had a liver biopsy in [facility]. No chest pain. No palpitations. Abdomen pain complained and an abdominal ultrasound showed a small amount of ascites and possible cirrhosis of liver also. Hepatocellular carcinoma suspected. PHYSICAL EXAM: Alert and oriented x2. Pulse 69, blood pressure is 98/58, respiration 18, temperature 97.8, pulse ox 92% on room air. HEENT: Conjunctivae normal. Neck: No jugular venous distention. Cardiovascular: S1, S2 muffled. Respiratory: Breath sounds diminished in the bases. No rhonchi. No crackles. Abdomen soft, mild diffuse distention. Legs no edema, no swelling. Central nervous system: No focal deficits. Lower chest status post liver biopsy. No guarding and no rigidity. LABS: WBC 11.2, hemoglobin 11.8, total bilirubin is 13.3, AST 227, ALT is 200, slightly improving. C diff is negative. ASSESSMENT: 1. Abdominal pain, ascites, possibly secondary to cirrhosis of the liver. 2. History of recent liver biopsy. 3. Increased AST/ALT possibly hepatitis C. 4. Increased alkaline phosphatase, rule out obstructive jaundice, rule out hepatocellular carcinoma. 5. Elevated lipase. 6. Increased WBC. 7. Diarrhea, possibly enteritis. C diff is negative. 8. History of anxiety. 9. Remote history of nicotine dependence. 10.History of gastroesophageal reflux disease. 11.History of hypertension. 12.History of pneumonia. 13.History of chronic back pain. 14.Degenerative joint disease. 15.History of polysubstance abuse including heroin, alcohol. 16.FULL CODE. RECOMMENDATIONS AND DISCUSSION: Continue current medications, symptomatic treatment. Otherwise, at this time, I recommend repeat labs. Obtain records from [facility]. Discussed with Juli the Gastroenterology nurse practitioner who was following the patient in [facility] also. The overall prognosis is guarded. [employer] to evaluate for the home situation. Discussed with staff. Guarded prognosis. Further recommendations to follow. MMODL / IJN: [id number] /
[2017-10-09] MEDS: MORPHINE ORAL SOLN 10 MG/5 ML CUP PO PRN (19:41)
[2017-10-09] MEDS: MIRTAZAPINE 15 MG TAB PO SCH (21:25)
[2017-10-10] MEDS: PIPERACILLIN-TAZOBACTAM 3.375 GM in DEXTROSE/WATER 1 50ML.BAG IVPB SCH ×4 (00:29→23:21)
[2017-10-10] MEDS: MORPHINE ORAL SOLN 10 MG/5 ML CUP PO PRN ×4 (00:29→23:21)
[2017-10-10] MEDS: BUDESONIDE 0.5 MG/2 ML NEBU INHALATION SCH (08:06)
[2017-10-10 08:14] LABS: Basophils % (A) 0 %; Eosinophils # (A) 0.1 k/uL (0-0.7); Eosinophils % (A) 1 %; HCT 36.6 % (39.0-53.0); HGB 11.5 gm/dL (13.0-17.5); Hypochromasia Marked; Lymphocytes # (A) 1.7 k/uL (1.0-4.8); Lymphocytes % (A) 17 %; MCH 29.1 pg (25.0-35.0); MCHC 31.6 g/dL (31.0-37.0); MCV 92.2 fL (80.0-100.0); Mean Platelet Volume 9.9; Monocytes # (A) 0.8 k/uL (0-1.0); Monocytes % (A) 8 %; Neutrophils # (A) 7.1 k/uL (1.3-7.7); Neutrophils % (A) 71 %; Platelet Count 197 k/uL (150-450); RBC 3.97 m/uL (4.30-5.90); RDW 15.3 % (11.5-15.5); WBC 9.9 k/uL (3.8-10.6)
[2017-10-10 08:20] LABS: INR 1.2 (<1.2); Prothrombin Time 11.3 sec (9.0-12.0)
[2017-10-10 08:36] LABS: ALT 225 U/L (21-72); AST 237 U/L (17-59); Albumin 2.6 g/dL (3.5-5.0); Alkaline Phosphatase 626 U/L (38-126); Anion Gap 8 mmol/L; Blood Urea Nitrogen 21 mg/dL (9-20); Calcium 7.7 mg/dL (8.4-10.2); Carbon Dioxide 26 mmol/L (22-30); Chloride 105 mmol/L (98-107); Glucose 134 mg/dL (74-99); Potassium 3.8 mmol/L (3.5-5.1); Sodium 139 mmol/L (137-145); Total Protein 6.2 g/dL (6.3-8.2)
--- NOTE | 2017-10-10 09:25 | P.PN ---
Subjective Progress Note Date: 10/10/17 Principal diagnosis: Liver cirrhosis hepatitis C infiltrative liver mass 57-year-old homeless man admitted with diarrhea suicidal ideations with underlying history of hepatitis C alcohol liver cirrhosis esophageal varices recently hospitalized a week ago with acute upper GI bleed secondary to esophageal varices status post variceal ligation as well as radiographic findings of infiltrative liver mass status post ultrasound guided liver core biopsy Friday pathology pending. Presently resting comfortably. Ultrasound abdomen mild ascites. He will been 9.9. Hemoglobin 11.5. Denies hematemesis medicated melena. Tolerating regular diet. Sitter at bedside. Bowel movements decreasing. LFTs stable. Objective - Vital Signs Vital signs: Vital Signs Temp 97.4 F L 10/10/17 07:00 Pulse 72 10/10/17 08:14 Resp 14 10/10/17 08:14 BP 107/68 10/10/17 07:00 Pulse Ox 92 L 10/10/17 07:00 Intake & Output 10/09/17 10/10/17 10/10/17 18:59 06:59 18:59 Intake Total 890 660 Balance 890 660 Weight 72.57 kg Intake: IV 30 0.9 30 Intake, IV Titration 50 50 Amount Piperacillin-Tazobactam 3 50 50 .375 gm In Dextrose/Water 1 50ml.bag @ 12.5 mls/hr IVPB Q8HR [facility] Rx#: [id number] Oral 840 580 Other: Voiding Method Toilet # Voids 3 1 - Exam General appearance: The patient is alert, oriented, in no acute distress. HET: Head is normocephalic and atraumatic. Pupils are equal and reactive. Oropharynx is clear without lesions. Neck: Supple without lymphadenopathy. Trachea midline. Heart: S1 S2. Regular rate and rhythm. Lungs: No crackles or wheezes are heard. Abdomen: Soft, nontender, bloated mild ascites with bowel sounds. No peritoneal signs. No palpable organomegaly or masses. Extremities: Normal skin color and turgor. No cyanosis, rash, ulceration, clubbing, or edema. Radial and pedal pulses are 2/4 bilaterally. Neurological: No focal deficits. Strength and sensation are grossly intact. - Labs CBC & Chem 7: 10/10/17 06:53 10/10/17 06:53 Labs: Abnormal Lab Results - Last 24 Hours (Table) 10/10/17 10/10/17 10/10/17 Range/Units 06:53 06:53 06:53 RBC 3.97 L (4.30-5.90) m/uL Hgb 11.5 L (13.0-17.5) gm/dL Hct 36.6 L (39.0-53.0) % INR 1.2 H (<1.2) BUN 21 H (9-20) mg/dL Glucose 134 H (74-99) mg/dL Calcium 7.7 L (8.4-10.2) mg/dL Total Bilirubin 2.0 H (0.2-1.3) mg/dL AST 237 H (17-59) U/L ALT 225 H (21-72) U/L Alkaline Phosphatase 626 H (38-126) U/L Total Protein 6.2 L (6.3-8.2) g/dL Albumin 2.6 L (3.5-5.0) g/dL Microbiology - Last 24 Hours (Table) 10/09/17 06:19 Stool for WBCs - Final Stool 10/08/17 14:56 Blood Culture - Preliminary Blood No Growth after 24 hours 10/09/17 06:19 Stool Culture - Preliminary Stool 10/09/17 06:19 Urine Culture - Preliminary Urine,Clean Catch Assessment and Plan (1) Diarrhea Narrative/Plan: 57-year-old gentleman recently hospitalized with acute upper GI bleed secondary to esophageal varices status post EGD with banding 1 week ago with underlying alcohol liver cirrhosis portal hypertension and ascites with suspected infiltrative liver mass elevated alpha-fetoprotein marker suspicious for primary liver malignancy possible hepatocellular carcinoma status post ultrasound guided liver core biopsy 10/06/2017 with biopsies pending. Current Visit: Yes Status: Acute Code(s): R19.7 - DIARRHEA, UNSPECIFIED SNOMED Code(s): 47849630 (2) Chronic hepatitis C Current Visit: Yes Status: Acute Code(s): B18.2 - CHRONIC VIRAL HEPATITIS C SNOMED Code(s): 424688915 (3) H/O ETOH abuse Current Visit: Yes Status: Acute Code(s): Z87.898 - PERSONAL HISTORY OF OTHER SPECIFIED CONDITIONS SNOMED Code(s): 624629484 (4) Heroin abuse Current Visit: Yes Status: Acute Code(s): F11.10 - OPIOID ABUSE, UNCOMPLICATED SNOMED Code(s): 6040604 (5) Elevated liver enzymes Current Visit: Yes Status: Acute Code(s): R74.8 - ABNORMAL LEVELS OF OTHER SERUM ENZYMES SNOMED Code(s): 866704551 (6) History of esophageal varices with bleeding Current Visit: Yes Status: Acute Code(s): Z87.19 - PERSONAL HISTORY OF OTHER DISEASES OF THE DIGESTIVE SYSTEM SNOMED Code(s): 580072752 (7) Leukocytosis Current Visit: Yes Status: Acute Code(s): D72.829 - ELEVATED WHITE BLOOD CELL COUNT, UNSPECIFIED SNOMED Code(s): 488839470 (8) Liver cirrhosis Current Visit: Yes Status: Acute Code(s): K74.60 - UNSPECIFIED CIRRHOSIS OF LIVER SNOMED Code(s): 86238946 (9) Liver mass Current Visit: Yes Status: Acute Code(s): R16.0 - HEPATOMEGALY, NOT ELSEWHERE CLASSIFIED SNOMED Code(s): 746478947 (10) Ascites Current Visit: Yes Status: Acute Code(s): R18.8 - OTHER ASCITES SNOMED Code(s): 889712792 (11) Portal hypertension Current Visit: Yes Status: Acute Code(s): K76.6 - PORTAL HYPERTENSION SNOMED Code(s): 04374872 (12) Homelessness Current Visit: Yes Status: Acute Code(s): Z59.0 - HOMELESSNESS SNOMED Code (s): 24676167 Plan: 1. Supportive measures. 2. We'll check liver biopsy result today. Assessment and plan of care discussed with Dr. Anaya
[2017-10-10] MEDS: CITALOPRAM HYDROBROMIDE 20 MG TAB PO SCH (10:03)
[2017-10-10] MEDS: FUROSEMIDE 80 MG TAB PO SCH (10:03)
[2017-10-10] MEDS: PROPRANOLOL 10 MG TAB PO SCH ×3 (10:03→21:44)
[2017-10-10] MEDS: SPIRONOLACTONE 25 MG TAB PO SCH (10:03)
[2017-10-10] MEDS: PANTOPRAZOLE 40 MG TABLET PO SCH (10:03)
--- NOTE | 2017-10-10 15:36 | P.PN ---
Progress Note - Text Progress Note Date: 10/10/17 Interval History: Patient is a 57-year-old male who is being seen in follow-up to a consultation. Patient was seen today and he reports that his pain is much better controlled today, he is more comfortable but states that he continues to have suicidal thoughts and thinks of ways to commit suicide because he is feeling that his life is worthless, that nothing is going well. Patient states that he has been eating. He reports that he continues to feel depressed about his condition, his circumstances Mental Status: Appearance/Attitude: Patient is lying in a hospital bed and appears more comfortable today he makes good eye contact and is cooperative Behavior: Patient does not display any psychomotor agitation or retardation. Speech/Language: Patient's speech is spontaneous and a soft voice and he is coherent Thought Process: Patient is goal-directed, needs encouragement to elaborate on his responses no evidence of circumstantial or tangential thought. Thought Content: Patient denies auditory or visual hallucinations and no paranoid or delusional ideation was elicited. Patient states that he feels hopeless because of his situation, no place to live his multiple health problems and doesn't see any solution to any of this. Patient states that he has been trying to eat. He states he was able to sleep last night. He states that the pain is better controlled today and he feels more comfortable. Suicidal/Homicidal Ideation: Patient states he continues to have suicidal ideation thinking about ways to to do it, no intent to act at this time and he denies any current homicidal ideation Sensorium/Cognition: Patient is alert and oriented to person, place, and time and his recent and remote memory are grossly intact. Mood/Affect: Patient's mood is depressed and his affect is blunted Insight/Judgment: Patient's insight and judgment are fair Assessment: Patient reports that his pain is better controlled, he continues to feel depressed and hopeless because of his medical problems, his life situation , he is homeless and states that he sees no way to resolve any of this. Patient reports that he is more comfortable because the pain is better controlled but this has not decreased his thoughts of suicide. Patient states he is thoughts of ways to do it but states that he has no intent to act at this time. Plan: Patient is on Remeron 15 mg at bedtime and Celexa 40 mg daily and at this time no increase in dose secondary to his elevated liver enzymes. Patient at this time is not appropriate for transfer to the inpatient psychiatric unit, will reevaluate the patient in several days and consider changing his medications. Should patient's medical condition improved to the point that he would be appropriate for the inpatient unit transfer at that time could be considered. Patient's liver biopsy results are still unavailable.
--- NOTE | 2017-10-10 19:42 | PN ---
PROGRESS NOTE DATE OF SERVICE: 10/10/2017 Patient is seen in the room and sitting up in the bed, voices no complaints. VITAL SIGNS: Temperature of 98.3, pulse is 71, respirations 16, blood pressure 108/66, O2 saturation 92%. The patient is awake, alert, oriented. She is in no acute distress. HEENT: Atraumatic, normocephalic. Pupils equal and reactive to light. Extraocular movements intact. Buccal mucosa is fair. NECK: Supple. No goiter, lymphadenopathy. JVD is negative. No carotid bruit heard. LUNGS: Clear to auscultate. No rales, rhonchi, or wheezes. Heart is regular rate and rhythm without murmurs or gallop rhythm. Abdomen is soft, nontender, nondistended. Bowel sounds positive. EXTREMITIES: No edema, clubbing or cyanosis. LABS: CBC: White blood count of 9.9, hemoglobin 11.5, hematocrit 36.6, and platelet count of 197. Chemical profile: Sodium 139, potassium 3.8, chloride 105, bicarb 26, BUN 21, creatinine 0.85, glucose 134. ASSESSMENT: 1. Abdominal pain secondary to cirrhosis of the liver. 2. An elevated AST, ALT, possibly hepatitis C. 3. Increased alkaline phosphate, rule out jaundice, rule out hepatocellular carcinoma. 4. Elevated lipase. 5. Diarrhea. C diff is negative. The patient did have a liver biopsy done at [facility] recently and biopsy report is pending. GI is following. Plan is to continue with supportive care. Further recommendations after biopsy report is available. MMODL / IJN: [id number] /
[2017-10-10] MEDS: MIRTAZAPINE 15 MG TAB PO SCH (20:38)
[2017-10-11] MEDS: MORPHINE ORAL SOLN 10 MG/5 ML CUP PO PRN ×3 (05:49→21:01)
[2017-10-11 07:58] LABS: Basophils % (A) 0 %; Eosinophils # (A) 0.1 k/uL (0-0.7); Eosinophils % (A) 1 %; HCT 35.6 % (39.0-53.0); HGB 11.3 gm/dL (13.0-17.5); Hypochromasia Slight; Lymphocytes # (A) 2.1 k/uL (1.0-4.8); Lymphocytes % (A) 18 %; MCH 28.6 pg (25.0-35.0); MCHC 31.8 g/dL (31.0-37.0); MCV 89.8 fL (80.0-100.0); Mean Platelet Volume 9.6; Monocytes % (A) 9 %; Neutrophils # (A) 8.2 k/uL (1.3-7.7); Neutrophils % (A) 71 %; Platelet Count 225 k/uL (150-450); RBC 3.97 m/uL (4.30-5.90); RDW 15.6 % (11.5-15.5); WBC 11.6 k/uL (3.8-10.6)
[2017-10-11 07:59] LABS: ALT 179 U/L (21-72); AST 173 U/L (17-59); Albumin 2.6 g/dL (3.5-5.0); Alkaline Phosphatase 623 U/L (38-126); Anion Gap 9 mmol/L; Blood Urea Nitrogen 16 mg/dL (9-20); Calcium 7.7 mg/dL (8.4-10.2); Carbon Dioxide 26 mmol/L (22-30); Chloride 101 mmol/L (98-107); Glucose 97 mg/dL (74-99); Potassium 3.8 mmol/L (3.5-5.1); Sodium 136 mmol/L (137-145); Total Bilirubin 2.6 mg/dL (0.2-1.3); Total Protein 6.3 g/dL (6.3-8.2)
[2017-10-11] MEDS: CITALOPRAM HYDROBROMIDE 20 MG TAB PO SCH (08:22)
[2017-10-11] MEDS: FUROSEMIDE 80 MG TAB PO SCH (08:23)
[2017-10-11] MEDS: PANTOPRAZOLE 40 MG TABLET PO SCH (08:23)
[2017-10-11] MEDS: PIPERACILLIN-TAZOBACTAM 3.375 GM in DEXTROSE/WATER 1 50ML.BAG IVPB SCH ×2 (08:23→16:43)
[2017-10-11] MEDS: PROPRANOLOL 10 MG TAB PO SCH ×3 (08:23→21:06)
[2017-10-11] MEDS: SPIRONOLACTONE 25 MG TAB PO SCH (08:23)
[2017-10-11] MEDS: BUDESONIDE 0.5 MG/2 ML NEBU INHALATION SCH (09:01)
--- NOTE | 2017-10-11 11:58 | PN ---
PROGRESS NOTE Patient is a 57-year-old pleasant white male with history of chronic hepatitis C infection and recent esophageal varices bleeding about 2 weeks ago at which time he was admitted to [facility], underwent upper endoscopy with variceal ligation. He is admitted to the hospital because of anxiety and depression. While he was at [facility] he was noted to have infiltration of the right lobe of the liver suspicious for malignancy and he underwent a liver biopsy done, results of which are still pending at the time of this dictation. The patient denies any symptoms today. He reports no abdominal pain, nausea, vomiting. PHYSICAL EXAMINATION: He appears comfortable. No apparent distress. VITAL SIGNS: Stable. Blood pressure is 118/68, pulse rate 74, temperature 99.8. HEENT EXAMINATION: Unremarkable. Conjunctivae pink. Sclerae anicteric. Oral cavity no lesions. NECK: No JVD. Chest was clear to auscultation. HEART: Regular rate and rhythm. ABDOMEN: Soft. Bowel sounds are positive. No organomegaly. EXTREMITIES: No pedal edema. SKIN: No rashes. NEUROLOGIC: Alert and oriented x3. No focal deficits. LABS: From today, WBC 11.6, hemoglobin 11.3, platelets are normal. ALT, AST are 173 and 179 respectively. Total bilirubin is 2.6 and alkaline phosphatase 623. IMPRESSION: 1. Chronic hepatitis C infection with elevated LFTs and jaundice. 2. History of heavy alcohol abuse. 3. Recent esophageal variceal bleeding for which she underwent an upper endoscopy with variceal ligation 2 weeks ago. 4. Infiltrating mass in the liver status post liver biopsy results are still pending at the time of this dictation. RECOMMENDATIONS: 1. Await liver biopsy results. 2. Continue with current management and will follow him closely during this hospital setting. Thank you for this consultation. MMODL / IJN: [id number] /
--- NOTE | 2017-10-11 18:01 | PN ---
PROGRESS NOTE DATE OF SERVICE: 10/11/2017 Patient resting comfortably in bed. He has history of chronic hepatitis C with esophageal varices, had liver biopsy done for an infiltrative mass in right lobe of liver. It is suspicious of malignancy, but biopsy is pending. PHYSICAL EXAMINATION: GENERAL: He is awake, alert, oriented x3. He is in no acute distress. VITAL SIGNS: Temperature 98.1, pulse 70, respirations 16, blood pressure 109/66, O2 saturation 91%. HEENT: Atraumatic, normocephalic. Pupils equal and reactive to light. Extraocular movements intact. Buccal mucosa is fair. Neck is supple. No goiter or lymphadenopathy. JVD is negative. No carotid bruit heard. Lungs are clear to auscultate. No rales, rhonchi or wheezes. Heart is regular rate and rhythm without any murmurs, gallop rhythm. Abdomen is soft, nondistended. Bowel sounds positive. EXTREMITIES: No edema, clubbing, cyanosis. Skin is warm and dry. No rashes. NEUROLOGICAL: Patient is awake, alert, oriented x3. No gross motor or sensory deficit. LABS: CBC: White blood count of 11.6, hemoglobin 11.3, hematocrit 35.6 and platelet count of 225. Chemical profile: Sodium 136, potassium 3.8, chloride 101, bicarb 26, BUN of 16, creatinine 0.8. Liver enzymes: AST 173, ALT 179, alkaline phosphate 623. ASSESSMENT: 1. Chronic hepatitis C infection with elevated LFTs and jaundice. 2. Heavy alcohol abuse. 3. Recent esophageal varices bleeding. The patient underwent esophagogastroduodenoscopy with variceal ligation. 4. Infiltrating mass of the liver, status post liver biopsy, which is still pending. 5. Diarrhea. Clostridium difficile is negative. Continue current management with supportive care. Liver biopsy is still pending. GI is following. Continue to maintain hydration and all the current treatment. Further recommendations after biopsy report is available. MMODL / IJN: [id number] /
[2017-10-11] MEDS: MIRTAZAPINE 15 MG TAB PO SCH (20:02)
[2017-10-12] MEDS: PIPERACILLIN-TAZOBACTAM 3.375 GM in DEXTROSE/WATER 1 50ML.BAG IVPB SCH ×4 (00:28→23:21)
[2017-10-12] MEDS: MORPHINE ORAL SOLN 10 MG/5 ML CUP PO PRN ×3 (05:57→20:27)
[2017-10-12] MEDS: PANTOPRAZOLE 40 MG TABLET PO SCH (07:53)
[2017-10-12] MEDS: SPIRONOLACTONE 25 MG TAB PO SCH (07:53)
[2017-10-12] MEDS: PROPRANOLOL 10 MG TAB PO SCH ×3 (07:53→20:28)
[2017-10-12] MEDS: FUROSEMIDE 80 MG TAB PO SCH (07:53)
[2017-10-12] MEDS: CITALOPRAM HYDROBROMIDE 20 MG TAB PO SCH (07:53)
[2017-10-12] MEDS: BUDESONIDE 0.5 MG/2 ML NEBU INHALATION SCH (08:05)
[2017-10-12 08:35] LABS: Basophils % (A) 0 %; Eosinophils # (A) 0.1 k/uL (0-0.7); Eosinophils % (A) 1 %; HCT 34.8 % (39.0-53.0); HGB 10.4 gm/dL (13.0-17.5); Hypochromasia Moderate; Lymphocytes # (A) 1.8 k/uL (1.0-4.8); Lymphocytes % (A) 17 %; MCH 27.4 pg (25.0-35.0); MCV 91.1 fL (80.0-100.0); Mean Platelet Volume 9.6; Monocytes # (A) 0.9 k/uL (0-1.0); Monocytes % (A) 9 %; Neutrophils # (A) 7.6 k/uL (1.3-7.7); Neutrophils % (A) 72 %; Platelet Count 225 k/uL (150-450); RBC 3.82 m/uL (4.30-5.90); RDW 15.8 % (11.5-15.5); WBC 10.6 k/uL (3.8-10.6)
[2017-10-12 08:49] LABS: ALT 138 U/L (21-72); AST 121 U/L (17-59); Albumin 2.6 g/dL (3.5-5.0); Alkaline Phosphatase 601 U/L (38-126); Anion Gap 10 mmol/L; Blood Urea Nitrogen 13 mg/dL (9-20); Calcium 7.5 mg/dL (8.4-10.2); Carbon Dioxide 25 mmol/L (22-30); Chloride 100 mmol/L (98-107); Glucose 108 mg/dL (74-99); Potassium 3.8 mmol/L (3.5-5.1); Sodium 135 mmol/L (137-145); Total Bilirubin 2.2 mg/dL (0.2-1.3); Total Protein 6.3 g/dL (6.3-8.2)
[2017-10-12] MEDS: IPRATROPIUM-ALBUTEROL 3 ML NEB INHALATION SCH ×3 (11:44→20:37)
--- NOTE | 2017-10-12 14:41 | P.PN ---
Progress Note - Text Interval history: The patient is being seen today in coverage for Dr. Deleon. Floor staff have asked that we evaluate the patient to see if the auto club safety program coordinator can be discontinued. The patient has a known history of depression and opiate use disorder. He had reported having suicidal ideation. In reviewing the notes it appears likely he would be transferred to the mental health unit once he is medically cleared. The patient states that he still feels depressed and hopeless and he continues to have suicidal ideation. He states that he has thoughts of trying to hurt himself here in the hospital. He continues to experience abdominal discomfort and it appears she is being worked up for possible malignancy of his liver. Mental status exam: The patient is lying in bed he is in no acute distress. Eye contact is appropriate. He speaks very softly. He is dressed in hospital attire. He appears to have some scleral icterus. He reports a depressed mood with ongoing suicidal ideation. He is reporting no homicidal ideation. He reports no auditory or visual hallucinations or any specific delusions. He demonstrates no tangential thinking loose associations or flight of ideas. He mainly answers questions asked of him briefly he offers no spontaneous speech. He is oriented to place name day of the week month he incorrectly names the year is 2017. Impression: Major depressive disorder recurrent severe without psychosis, history of opiate use disorder, noted history of alcohol use disorder Plan: The patient will continue on the Remeron and Celexa as written. He indicates he is not confident he can keep himself safe here in the hospital. We will continue the auto club safety program coordinator for that reason. He will continue further medical evaluation and treatment. Once medically cleared he may be appropriate for transition to the mental health unit.
--- NOTE | 2017-10-12 17:49 | PN ---
PROGRESS NOTE DATE OF SERVICE: 10/12/2017 The patient is seen in the room, remains stable. Vital signs: Temperature of 98.4, pulse 68, respiration is 16, blood pressure 106/55, O2 saturation 96% on 2 L. General appearance: Patient is awake and alert. He is in no acute distress. HEENT atraumatic, normocephalic. Pupils equal and reactive to light. Extraocular movements intact. Buccal mucosa is fair. Neck is supple. No goiter, lymphadenopathy. JVD is negative. No carotid bruit heard. Lungs are clear to auscultate. No rales, rhonchi, wheezes. Heart is regular rate and rhythm without any murmurs, gallop rhythm. Abdomen is soft. Mild distention and bowel sounds are positive. Extremities 1+ edema both lower extremities. Pulses are palpable. Skin and neurological examination: The patient is awake, alert, oriented x3. He has no gross motor or sensory deficit. Cranial nerves 2- 12 grossly intact. Skin is warm, dry and intact. LAB: CBC white blood count of 10.6, hemoglobin 10.4, hematocrit 34.8, and platelet count of 225. Chemical profile sodium 135, potassium 3.8, chloride 100, bicarb 25, BUN of 13, creatinine 0.82. Liver enzymes are slightly downtrending, but not a very remarkable change. ASSESSMENT: 1. Chronic hepatitis C infection with elevated LFTs and jaundice. 2. Heavy alcohol abuse. 3. Recent esophageal varices with bleeding. The patient underwent an EGD with variceal ligation. 4. Infiltrating mass of the liver, status post biopsy which is pending. 5. Diarrhea, clinically resolved. C diff was negative. PLAN: Continue with current and supportive care. Gastroenterology is following the patient. Psychiatry is following the patient and recommending to continue all current medications as per now. Further recommendations pending patient's biopsy report. MMODL / IJN: [id number] /
[2017-10-12] MEDS: MIRTAZAPINE 15 MG TAB PO SCH (20:28)
[2017-10-13] MEDS: MORPHINE ORAL SOLN 10 MG/5 ML CUP PO PRN ×3 (03:19→20:18)
[2017-10-13] MEDS: IPRATROPIUM-ALBUTEROL 3 ML NEB INHALATION SCH ×4 (07:31→20:28)
[2017-10-13] MEDS: BUDESONIDE 0.5 MG/2 ML NEBU INHALATION SCH (07:31)
[2017-10-13 08:18] LABS: ALT 117 U/L (21-72); AST 104 U/L (17-59); Albumin 2.8 g/dL (3.5-5.0); Alkaline Phosphatase 640 U/L (38-126); Anion Gap 11 mmol/L; Bilirubin, Conjugated 0.9 mg/dL (0.0-0.3); Bilirubin, Delta 1.8 mg/dL (0.0-0.2); Blood Urea Nitrogen 12 mg/dL (9-20); Calcium 7.9 mg/dL (8.4-10.2); Carbon Dioxide 25 mmol/L (22-30); Chloride 98 mmol/L (98-107); Glucose 79 mg/dL (74-99); Potassium 4.3 mmol/L (3.5-5.1); Sodium 134 mmol/L (137-145); Total Bilirubin 3.7 mg/dL (0.2-1.3); Total Protein 6.7 g/dL (6.3-8.2)
[2017-10-13 08:24] LABS: Basophils % (A) 0 %; Eosinophils # (A) 0.1 k/uL (0-0.7); Eosinophils % (A) 1 %; HCT 35.8 % (39.0-53.0); HGB 11.1 gm/dL (13.0-17.5); Hypochromasia Moderate; Lymphocytes # (A) 1.9 k/uL (1.0-4.8); Lymphocytes % (A) 17 %; MCHC 31.1 g/dL (31.0-37.0); MCV 90.1 fL (80.0-100.0); Mean Platelet Volume 9.2; Monocytes # (A) 0.9 k/uL (0-1.0); Monocytes % (A) 8 %; Neutrophils # (A) 8.1 k/uL (1.3-7.7); Neutrophils % (A) 72 %; Platelet Count 230 k/uL (150-450); RBC 3.97 m/uL (4.30-5.90); RDW 15.4 % (11.5-15.5); WBC 11.2 k/uL (3.8-10.6)
[2017-10-13] MEDS: FUROSEMIDE 80 MG TAB PO SCH (08:25)
[2017-10-13] MEDS: PIPERACILLIN-TAZOBACTAM 3.375 GM in DEXTROSE/WATER 1 50ML.BAG IVPB SCH ×2 (08:25→16:27)
[2017-10-13] MEDS: SPIRONOLACTONE 25 MG TAB PO SCH (08:26)
[2017-10-13] MEDS: PROPRANOLOL 10 MG TAB PO SCH ×3 (08:26→20:18)
[2017-10-13] MEDS: CITALOPRAM HYDROBROMIDE 20 MG TAB PO SCH (08:26)
[2017-10-13] MEDS: PANTOPRAZOLE 40 MG TABLET PO SCH (08:26)
--- NOTE | 2017-10-13 11:42 | XR ---
EXAMINATION TYPE: XR chest 1V portable DATE OF EXAM: 10/13/2017 COMPARISON: NONE HISTORY: Cough and congestion TECHNIQUE: Single frontal view of the chest is obtained. FINDINGS: Bilateral areas of consolidation with small right effusion. Mild arthropathy of the should ers. No pneumothorax or interstitial edema. The heart size is normal. IMPRESSION: 1. Bilateral infiltrate and small effusion.
--- NOTE | 2017-10-13 14:31 | P.PN ---
Progress Note - Text Progress Note Date: 10/13/17 Interval History: Patient is a 57-year-old male who is being seen in follow-up to a consultation. Patient reports that his pain is much better controlled and he is unaware of the results of his biopsy. Patient states that he continues to feel suicidal because he is "losing my mind, all I think about is the pain". Patient states that he is eating and has been up walking to the bathroom. He reports continuing to have suicidal thoughts but no current plan. Patient states he hasn't slept for the last 3 nights. Patient states he is depressed secondary to the pain even though it is better controlled at this time. Mental Status:Appearance/Attitude: Patient is lying in a hospital bed, he appears comfortable but states he continues to have pain and is cooperative. Behavior: Patient does not exhibit any psychomotor agitation or retardation. Speech/Language: Patient's speech is spontaneous but he speaks in a soft voice in a slow rhythm and he is coherent Thought Process: Patient is goal-directed, is not tangential or circumstantial Thought Content: And denies auditory or visual hallucinations and no delusions or paranoid ideation or elicited. Patient reports he hasn't slept for the last 3 nights a denies sleeping during the day. He states that all he thinks about is the pain even though he reports his pain is much better control today than it was on her first visit. Patient states that he thinks he is losing his mind because all he can think about is the pain. He states that he is eating. Suicidal/Homicidal Ideation: Patient states that he continues to have suicidal thoughts, denies a plan and states that he wants to and denies current homicidal ideation Sensorium/Cognition: Patient is alert and oriented to person, place, and time and his recent and remote memory are grossly intact Mood/Affect: Patient's mood is depressed and his affect is blunted Insight/Judgment: Patient's insight and judgment are fair Assessment: Spoke with the patient who reports that he continues to think about suicide because all he is on his mind is the pain even though he reports his pain is much better controlled and the patient appears more comfortable. I spoke with nursing staff who report that the pathology report was returned and revealed cirrhosis. Patient told me he is unaware of the results of the biopsy that was performed at the other facility. Patient is on antidepressants and continues to report feeling depressed and suicidal mostly related to his pain. Plan: Patient continues to express suicidal thoughts, he states now he has no plan but wants to will continue one-to-one sitter at this time. Patient is unaware of the results of his biopsy but per nursing staff the patient's biopsy revealed cirrhosis. Patient is currently on Remeron 15 mg and Celexa 40 mg in the patient states he is not sleeping but he is eating. I spoke with nursing staff regarding the medical plan, whether or not the patient is medically clear for transfer to a psychiatric unit. Patient is homeless, has no support system. Will await medical plan and assess whether he is stable to transfer to the psychiatric unit. Will continue suicide precautions at this time.
[2017-10-13 20:18] VITALS: BP 119/67; RESP 16; TEMP 98.6
[2017-10-13] MEDS: MIRTAZAPINE 15 MG TAB PO SCH (20:18)
[2017-10-13 21:08] VITALS: PULSE 66
--- NOTE | 2017-10-14 00:44 | DS ---
DISCHARGE SUMMARY FINAL DIAGNOSES: 1. Abdominal pain, ascites, possibly secondary to cirrhosis of the liver. 2. Status post liver biopsy showing cirrhosis with stage IV fibrosis with moderate chronic active hepatitis with no evidence of malignancy. 3. History of recent liver biopsy. 4. Increased AST, ALT, possibly secondary to chronic hepatitis C. 5. Increased alkaline phosphatase. 6. Elevated lipase. 7. Increased white blood count. 8. Diarrhea, possible enteritis, Clostridium difficile negative, improved. 9. History of anxiety. 10.Remote history of nicotine dependence. 11.History of gastroesophageal reflux disease. 12.Hypertension. 13.Pneumonia. 14.History of chronic back pain. 15.History of degenerative joint disease. 16.History of polysubstance abuse including heroin and alcohol. 17.FULL CODE. DISCHARGE DISPOSITION: The patient will be discharged in stable condition with guarded prognosis. Total time taken 35 minutes. The patient will be transferred to psych floor in stable condition with guarded prognosis. HISTORY OF PRESENT ILLNESS: This 57-year-old gentleman with a past medical history of multiple medical problems was admitted with abdominal pain, ascites, and multiple other complex medical issues. Treated symptomatically and improved significantly. Liver biopsy done at [facility] recently showed cirrhosis of the liver on the background of chronic active hepatitis as mentioned earlier, treated symptomatically. The patient will be transferred to psych floor for further evaluation and treatment. On exam, vitals are stable. CARDIOVASCULAR SYSTEM: S1, S2. ABDOMEN: Soft. NERVOUS SYSTEM: No focal deficit. CURRENT MEDICATIONS: 1. Pulmicort 0.5 b.i.d. 2. Celexa 40 mg p.o. daily. 3. Lasix 80 mg p.o. daily. 4. Albuterol and Atrovent updraft q.i.d. 5. Remeron 15 mg q.h.s. 6. Protonix 40 mg daily. 7. Inderal 10 mg t.i.d. 8. Aldactone 25 mg p.o. daily. 9. Augmentin 875 mg 1 p.o. b.i.d. for 5 days. 10.Combivent inhaler 1 puff q.i.d. 11.Prednisone taper. Please arrange follow up with , Dr. Anaya and Dr. Maddox as advised. MMODL / IJN: [id number] / MTDD
== END 2017-10-13 20:55 | DRG 433 ==
LOC: EC 09:27 → 5MS5E 17:09
PROVIDERS: ADMIT Internal Medicine; ATTEND Internal Medicine
DX: K74.60 Unspecified cirrhosis of liver (principal); R45.851 Suicidal ideations; K76.6 Portal hypertension; F33.2 Major depressive disorder, recurrent severe without psychotic features; I85.00 Esophageal varices without bleeding; R18.8 Other ascites; R16.0 Hepatomegaly, not elsewhere classified; K73.2 Chronic active hepatitis, not elsewhere classified; F10.10 Alcohol abuse, uncomplicated; F41.9 Anxiety disorder, unspecified; G89.29 Other chronic pain; I10 Essential (primary) hypertension; J45.909 Unspecified asthma, uncomplicated; K21.9 Gastro-esophageal reflux disease without esophagitis; K76.0 Fatty (change of) liver, not elsewhere classified; M19.90 Unspecified osteoarthritis, unspecified site; M47.9 Spondylosis, unspecified; D72.829 Elevated white blood cell count, unspecified; R19.7 Diarrhea, unspecified; Z59.0 Homelessness; Z79.899 Other long term (current) drug therapy; Z87.01 Personal history of pneumonia (recurrent); Z87.891 Personal history of nicotine dependence; Z90.49 Acquired absence of other specified parts of digestive tract
CPT/HCPCS: 36415; 71045; 76705; 80053; 80306; 81003; 82075; 82140; 82248; 83605; 83690; 85025; 85610; 87040; 87045; 87046; 87086; 87324; 89055; 94640; 96365; 96366; 96375; 99285

== ENCOUNTER 2017-10-13 18:09 | Inpatient (IN) | payer MEDICAID ==
[2017-10-13] MEDS ORDERED: MAGNESIUM HYDROXIDE 2,400 MG/10 ML CUP PO PRN (19:39)
[2017-10-13] MEDS ORDERED: HYDROcodone/APAP 5-325MG 1 EACH TAB PO PRN (19:45)
[2017-10-13] MEDS ORDERED: MIRTAZAPINE 15 MG TAB PO SCH (21:00)
[2017-10-13] MEDS: AMOXIC-POT CLAV 875-125MG 1 EACH TAB PO SCH (22:00)
[2017-10-13] MEDS: PROPRANOLOL 10 MG TAB PO SCH (22:01)
[2017-10-13 22:10] VITALS: BMI 28.0
[2017-10-14 06:55] VITALS: TEMP 98.8
[2017-10-14] MEDS ORDERED: PANTOPRAZOLE 40 MG TABLET PO SCH (07:30)
[2017-10-14] MEDS ORDERED: IPRATROPIUM-ALBUTEROL 3 ML NEB INHALATION SCH (08:00)
[2017-10-14] MEDS ORDERED: BECLOMETHASONE DIP 80 MCG/PUFF INHALER INHALATION SCH (08:00)
[2017-10-14] MEDS: SPIRONOLACTONE 25 MG TAB PO SCH ×2 (08:08→09:27)
[2017-10-14] MEDS: FUROSEMIDE 80 MG TAB PO SCH ×2 (08:08→09:27)
[2017-10-14] MEDS: AMOXIC-POT CLAV 875-125MG 1 EACH TAB PO SCH (08:08)
[2017-10-14] MEDS: PROPRANOLOL 10 MG TAB PO SCH ×2 (08:08→09:27)
[2017-10-14] MEDS ORDERED: NICOTINE 14MG/24HR PATCH TRANSDERM SCH (09:00)
[2017-10-14] MEDS ORDERED: predniSONE 10 MG TAB PO SCH (09:00)
[2017-10-14] MEDS ORDERED: CITALOPRAM HYDROBROMIDE 20 MG TAB PO SCH (09:00)
[2017-10-14 09:53] LABS: ALT 85 U/L (21-72); AST 87 U/L (17-59); Albumin 2.5 g/dL (3.5-5.0); Alkaline Phosphatase 496 U/L (38-126); Anion Gap 10 mmol/L; Blood Urea Nitrogen 18 mg/dL (9-20); Calcium 7.8 mg/dL (8.4-10.2); Carbon Dioxide 25 mmol/L (22-30); Chloride 102 mmol/L (98-107); Glucose 134 mg/dL (74-99); Potassium 4.6 mmol/L (3.5-5.1); Sodium 137 mmol/L (137-145); Total Bilirubin 2.2 mg/dL (0.2-1.3); Total Protein 6.1 g/dL (6.3-8.2)
--- NOTE | 2017-10-14 11:05 | P.HP ---
Psychiatric H&P - . H&P Date: 10/14/17 History & Physical: Allergies Allergy/AdvReac Type Severity Reaction Status Date / Time No Known Allergies Allergy Verified 10/13/17 21:51 Vital Signs Temp 98.8 F 10/14/17 06:54 Pulse 80 10/14/17 09:22 Resp 14 10/14/17 06:54 BP 118/60 10/14/17 06:54 Pulse Ox Intake & Output 10/13/17 10/14/17 10/14/17 18:59 06:59 18:59 Weight 79 kg Laboratory Last Values Sodium 137 mmol/L (137-145) 10/14/17 09:15 Potassium 4.6 mmol/L (3.5-5.1) 10/14/17 09:15 Chloride 102 mmol/L (98-107) 10/14/17 09:15 Carbon Dioxide 25 mmol/L (22-30) 10/14/17 09:15 Anion Gap 10 mmol/L 10/14/17 09:15 BUN 18 mg/dL (9-20) 10/14/17 09:15 Creatinine 0.79 mg/dL (0.66-1.25) 10/14/17 09:15 Est GFR (CKD-EPI)AfAm >90 (>60 ml/min/1.73 sqM) 10/14/17 09:15 Est GFR (CKD-EPI)NonAf >90 (>60 ml/min/1.73 sqM) 10/14/17 09:15 Glucose 134 mg/dL (74-99) H 10/14/17 09:15 Calcium 7.8 mg/dL (8.4-10.2) L 10/14/17 09:15 Total Bilirubin 2.2 mg/dL (0.2-1.3) H 10/14/17 09:15 AST 87 U/L (17-59) H 10/14/17 09:15 ALT 85 U/L (21-72) H 10/14/17 09:15 Alkaline Phosphatase 496 U/L (38-126) H 10/14/17 09:15 Ammonia 88 umol/L (<30) H 10/14/17 09:15 Total Protein 6.1 g/dL (6.3-8.2) L 10/14/17 09:15 Albumin 2.5 g/dL (3.5-5.0) L 10/14/17 09:15 10/14/17 10:20 Identification: Patient is a 57-year-old male who been admitted to the medical floor with complaints of abdominal pain, after a recent discharge from another [facility] and he was also presenting with suicidal ideation. History of Present Illness: Patient was on the medical floor and was transferred to the psychiatric unit for continuing treatment of his suicidal ideation and depression. Patient has a history of IV heroin use in the past as well as alcohol use, history of hepatitis C and recently had a liver biopsy at another Medical Center. Patient was on the medical floor and was reporting to me that he was feeling suicidal and could not guarantee his safety and was with a sitter for the length of his stay. Patient states that he wants to get his life together and was depressed regarding his medical conditions. Patient had recently been treated at another [facility] for an upper GI bleed, was found to have esophageal varices which were banded. Patient had been seen in March 2017 and admitted to this facility on the psychiatric unit after he attempted an overdose with heroin, alcohol, crack cocaine and methamphetamine for the 2 weeks prior to his admission secondary to the of his girlfriend who of sepsis. Patient states that once he was discharged he had no place to live, was arrested and charged with theft/robbery and was in senior living until he was transferred to [facility]. Upon his discharge from [facility] he was sent to a care home where the patient reported that he was having pain and diarrhea and presented to our emergency room. Patient had been treated while he was in senior living and his medications at been adjusted to the current doses of Remeron 15 mg at bedtime and Celexa 40 mg. Patient reports that he had not been using any alcohol or drugs since his discharge here in March 2017. Patient stated that he was feeling suicidal because of the pain, and states that he can't deal with the pain which he states began last fall. He states that the medical problems are difficult for him to deal with and he is tired of feeling sick and having pain. Patient states that he has suicidal thoughts with no plan but wants to . Patient was on the medical floor and was transferred to the psychiatric unit for further treatment. Past Psychiatric History: Patient has one prior admission to the psychiatric unit in March 2017. Patient had been seen 15 years earlier for outpatient counseling and treated with unknown medication when he attempted to walk in front of a car. Patient has been at [facility] in the past for his heroin use and relapse several months after discharge as was prior to his admission in March 2017. Past Medical/Surgical History: Patient has a history of hypertension, GERD, hepatitis C positive and he is status post appendectomy, cholecystectomy, status post subarachnoid bleed and had recently had an upper GI bleed with banding of esophageal varices. Patient has recently had a liver biopsy which revealed cirrhosis. Family History: Patient denies any family history of psychiatric illness, stating that his father in numerous members of his father's family abused alcohol. Social History: Patient parents are both , he has 6 siblings 3 of whom are and he has no contact with his other siblings. Patient has his GED and has worked in various jobs. He has last worked over 5 years ago. He was twice in the past and and has no children. Patient has no source of support and when his girlfriend was alive she was on disability and she was supporting them financially. Patient is homeless. Substance Use History: Patient began using alcohol at the age of 12 and last use 7 years ago and began drinking prior to his admission in March 2017. At that time he is drinking a sixpack of beer as well as half a pint of liquor but he has not had any alcohol since his discharge in March 2017. Patient began using marijuana at the age of 12 until he was 34 years of age. He began using heroin 7 years ago and was clean for several months after his discharge from [facility] but began using it again after the of his girlfriend again he has not used any drugs since his discharge in March 2017. He has a past history of using methamphetamine, Adderall, crack cocaine and Xanax. Legal History: Patient has been charged with a DUI in the past, breaking and entering robbery and has been on to jail on 5 occasions the last time from [id number]. Patient states that since March 2017 and his discharge from the psychiatric unit he has been in senior living charged with theft. Mental status: Appearance/Attitude: Patient is lying in bed, dressed in a hospital gown and makes eye contact. Patient reports that he is feeling nauseated and dizzy and is cooperative Behavior: Patient does not exhibit any psychomotor agitation or retardation Speech/Language: Patient's speech is spontaneous, with brief answers he speaks in a soft voice and is coherent Thought Process: Patient is goal-directed but his responses are brief, there is no evidence of loose association or flight of ideas Thought Content: Patient denies auditory or visual hallucinations and no delusions or paranoid ideation were elicited. Patient states that he is physically not feeling well, feeling dizzy and nauseated and did not eat breakfast this morning. Patient states that he is not currently having any suicidal ideation but is feeling physically ill and stated that he wants to be treated and get his life back. Patient reports that he slept on and off during the night. Suicidal/Homicidal Ideation: Patient states that he is not currently suicidal, he denies any current homicidal ideation Sensorium/Cognition: Patient is alert and oriented to person, location, situation further cognitive testing was not performed Mood/Affect: Patient's mood is depressed and his affect is blunted Insight/Judgment: Patient's insight and judgment are fair Intellectual Functioning: Patient intellectual functioning appears average Strength/Weakness: Patient has no source of financial support, has been compliant with medication Assessment: Patient was admitted to the medical floor and transferred to the psychiatric unit secondary to his continued suicidal ideation. Patient presents with complaints of depression and wanting his life back and being tired of feeling sick and in pain. Patient is being continued on his antidepressant medication while he was incarcerated in senior living after his last discharge in March 2017. Patient is presenting with complaints of depression, suicidal ideation secondary to his medical problems, he is reporting pain, feeling tired with little energy. Admission Diagnosis: Depressive disorder secondary to medical condition; opioid use disorder in early remission Plan: Patient was admitted on a voluntary basis, placed on routine observation and group and activity therapy were ordered. Routine laboratory studies and a medical consultation were requested. Patient was continued on his medications from his discharge from the medical floor including his psychiatric meds of Remeron 15 mg at bedtime and Celexa 40 mg in the morning. Patient requires hospitalization to further stabilize his mood. 10/14/17 11:04
[2017-10-14 11:11] VITALS: RESP 18
--- NOTE | 2017-10-14 11:15 | P.DS ---
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 Patient was on the medical floor and was transferred to the psychiatric unit for continuing treatment of his suicidal ideation and depression. Patient has a history of IV heroin use in the past as well as alcohol use, history of hepatitis C and recently had a liver biopsy at another Medical Center. Patient was on the medical floor and was reporting to me that he was feeling suicidal and could not guarantee his safety and was with a sitter for the length of his stay. Patient states that he wants to get his life together and was depressed regarding his medical conditions. Patient had recently been treated at another Medical [facility] for an upper GI bleed, was found to have esophageal varices which were banded. Patient had been seen in March 2017 and admitted to this facility on the psychiatric unit after he attempted an overdose with heroin, alcohol, crack cocaine and methamphetamine for the 2 weeks prior to his admission secondary to the of his girlfriend who of sepsis. Patient states that once he was discharged he had no place to live, was arrested and charged with theft/robbery and was in detention until he was transferred to [facility]. Upon his discharge from [facility] he was sent to a halfway where the patient reported that he was having pain and diarrhea and presented to our emergency room. Patient had been treated while he was in detention and his medications at been adjusted to the current doses of Remeron 15 mg at bedtime and Celexa 40 mg. Patient reports that he had not been using any alcohol or drugs since his discharge here in March 2017. Patient stated that he was feeling suicidal because of the pain, and states that he can't deal with the pain which he states began last fall. He states that the medical problems are difficult for him to deal with and he is tired of feeling sick and having pain. Patient states that he has suicidal thoughts with no plan but wants to . Patient was on the medical floor and was transferred to the psychiatric unit for further treatment. Mental status on Admission: Appearance/Attitude: Patient is lying in bed, dressed in a hospital gown and makes eye contact. Patient reports that he is feeling nauseated and dizzy and is cooperative Behavior: Patient does not exhibit any psychomotor agitation or retardation Speech/Language: Patient's speech is spontaneous, with brief answers he speaks in a soft voice and is coherent Thought Process: Patient is goal-directed but his responses are brief, there is no evidence of loose association or flight of ideas Thought Content: Patient denies auditory or visual hallucinations and no delusions or paranoid ideation were elicited. Patient states that he is physically not feeling well, feeling dizzy and nauseated and did not eat breakfast this morning. Patient states that he is not currently having any suicidal ideation but is feeling physically ill and stated that he wants to be treated and get his life back. Patient reports that he slept on and off during the night. Suicidal/Homicidal Ideation: Patient states that he is not currently suicidal, he denies any current homicidal ideation Sensorium/Cognition: Patient is alert and oriented to person, location, situation further cognitive testing was not performed Mood/Affect: Patient's mood is depressed and his affect is blunted Insight/Judgment: Patient's insight and judgment are fair Hospital Course: Patient was admitted on voluntary basis, routine laboratory studies were obtained and the patient was ordered group and activity therapy placed on routine observation. Patient was continued on his medications from his transfer from the medical floor. This morning the patient's blood pressure was found to be low, patient was feeling nauseated and was not able to eat. I spoke with the medical consulting team regarding the patient's condition and they recommended a transfer to the medical floor. Blood work this morning reveals his liver enzymes have decreased however his ammonia level is 88. Patient's chest x-ray from yesterday reveals bilateral infiltrate and a small effusion. Patient will be transferred to the medical floor. Allergies No Known Allergies Allergy (Verified 10/13/17 21:51) Laboratory Last Values Sodium 137 mmol/L (137-145) 10/14/17 09:15 Potassium 4.6 mmol/L (3.5-5.1) 10/14/17 09:15 Chloride 102 mmol/L (98-107) 10/14/17 09:15 Carbon Dioxide 25 mmol/L (22-30) 10/14/17 09:15 Anion Gap 10 mmol/L 10/14/17 09:15 BUN 18 mg/dL (9-20) 10/14/17 09:15 Creatinine 0.79 mg/dL (0.66-1.25) 10/14/17 09:15 Est GFR (CKD-EPI)AfAm >90 (>60 ml/min/1.73 sqM) 10/14/17 09:15 Est GFR (CKD-EPI)NonAf >90 (>60 ml/min/1.73 sqM) 10/14/17 09:15 Glucose 134 mg/dL (74-99) H 10/14/17 09:15 Calcium 7.8 mg/dL (8.4-10.2) L 10/14/17 09:15 Total Bilirubin 2.2 mg/dL (0.2-1.3) H 10/14/17 09:15 AST 87 U/L (17-59) H 10/14/17 09:15 ALT 85 U/L (21-72) H 10/14/17 09:15 Alkaline Phosphatase 496 U/L (38-126) H 10/14/17 09:15 Ammonia 88 umol/L (<30) H 10/14/17 09:15 Total Protein 6.1 g/dL (6.3-8.2) L 10/14/17 09:15 Albumin 2.5 g/dL (3.5-5.0) L 10/14/17 09:15 Discharge Mental Status: Appearance/Attitude: Patient is lying in bed, complaining of feeling nauseated and dizzy, makes eye contact and is cooperative Behavior: Patient does not display any psychomotor agitation or retardation. Speech/Language: Patient's speech is spontaneous, his answers are brief and he speaks in a soft voice and is coherent Thought Process: Patient is goal-directed although his responses are short sentences Thought Content: Patient denies any auditory or visual hallucinations and no delusions or paranoid ideation were elicited. Patient states that he is in some pain, feeling nauseated and dizzy and states that he would like to have his life back. Patient states his sleep is "not restful and he was unable to eat this morning due to his nausea. Suicidal/Homicidal Ideation: Patient denies any current suicidal ideation or plans and denies any current homicidal ideation Sensorium/Cognition: Patient is alert and oriented to person, situation and location further testing was not done this morning Mood/Affect: Patient's mood is depressed and his affect is blunted Insight/Judgment: Patient's insight and judgment are fair Discharge Plan: Patient is being transferred to the medical floor, he is not verbalizing any current suicidal ideation and does not need one-to-one supervision upon his transfer to a medical floor. Patient will continue on his Remeron 15 mg at bedtime and Celexa 40 mg in the morning. I will follow with the patient while he is on the medical floor. Patient Condition at Discharge: Serious Plan - Discharge Summary Discharge Rx Participant: No New Discharge Prescriptions: No Action Citalopram Hydrobromide [CeleXA] 40 mg PO DAILY Spironolactone [Aldactone] 25 mg PO DAILY Propranolol [Inderal] 10 mg PO TID Omeprazole 20 mg PO DAILY Beclomethasone Dipropionate [Qvar 80 mcg] 1 puff INHALATION RT-DAILY Furosemide [Lasix] 80 mg PO DAILY Mirtazapine [Remeron] 15 mg PO HS HYDROcodone/APAP 5-325MG [[place] 5-325] 1 tab PO QID PRN PRN Reason: Pain Ipratropium/Albuterol Sulfate [Combivent Respimat Inhaler] 1 puff INHALATION QID #1 inhaler Amoxic-Pot Clav 875-125Mg [Augmentin 875-125] 1 tab PO Q12HR #10 tablet predniSONE 10 mg PO DIRECTED #30 tab Discharge Medication List Beclomethasone Dipropionate [Qvar 80 mcg] 1 puff INHALATION RT-DAILY 10/08/17 [ History] Citalopram Hydrobromide [CeleXA] 40 mg PO DAILY 10/08/17 [History] Furosemide [Lasix] 80 mg PO DAILY 10/08/17 [History] HYDROcodone/APAP 5-325MG [[place] 5-325] 1 tab PO QID PRN 10/08/17 [History] Mirtazapine [Remeron] 15 mg PO HS 10/08/17 [History] Omeprazole 20 mg PO DAILY 10/08/17 [History] Propranolol [Inderal] 10 mg PO TID 10/08/17 [History] Spironolactone [Aldactone] 25 mg PO DAILY 10/08/17 [History] Amoxic-Pot Clav 875-125Mg [Augmentin 875-125] 1 tab PO Q12HR #10 tablet [Rx] Ipratropium/Albuterol Sulfate [Combivent Respimat Inhaler] 1 puff INHALATION QID #1 inhaler 10/13/17 [Rx] predniSONE 10 mg PO DIRECTED #30 tab 10/13/17 [Rx]
[2017-10-14 11:18] LABS: INR 1.2 (<1.2); Prothrombin Time 11.8 sec (9.0-12.0)
[2017-10-14 11:41] LABS: Basophils # (A) 0.1 k/uL (0-0.2); Basophils % (A) 1 %; Eosinophils # (A) 0.1 k/uL (0-0.7); Eosinophils % (A) 1 %; HCT 30.3 % (39.0-53.0); Hypochromasia Moderate; Lymphocytes # (A) 1.6 k/uL (1.0-4.8); Lymphocytes % (A) 12 %; MCH 28.5 pg (25.0-35.0); MCHC 31.1 g/dL (31.0-37.0); MCV 91.5 fL (80.0-100.0); Mean Platelet Volume 9.3; Monocytes # (A) 0.8 k/uL (0-1.0); Monocytes % (A) 6 %; Neutrophils # (A) 10.4 k/uL (1.3-7.7); Neutrophils % (A) 79 %; Platelet Count 272 k/uL (150-450); Poikilocytosis Slight; RBC 3.31 m/uL (4.30-5.90); RDW 15.5 % (11.5-15.5); WBC 13.2 k/uL (3.8-10.6)
[2017-10-14 11:44] LABS: HGB 9.4 gm/dL (13.0-17.5)
[2017-10-14 13:52] VITALS: BP 99/59; PULSE 80
== END 2017-10-14 11:37 | disposition home or self-care (01) | DRG 881 ==
LOC: 3MHU 20:43
PROVIDERS: ADMIT Psychiatry & Neurology Psychiatry; ATTEND Psychiatry & Neurology Psychiatry
DX: F32.9 Major depressive disorder, single episode, unspecified (principal); R45.851 Suicidal ideations; K74.60 Unspecified cirrhosis of liver; F11.11 Opioid abuse, in remission; I10 Essential (primary) hypertension; K21.9 Gastro-esophageal reflux disease without esophagitis; Z59.0 Homelessness; Z79.899 Other long term (current) drug therapy; Z90.49 Acquired absence of other specified parts of digestive tract
CPT/HCPCS: 80053; 82140; 85025; 85610; 94640

== ENCOUNTER 2017-10-14 10:18 | Inpatient (IN) | payer OTHER ==
[2017-10-14 13:23] VITALS: BMI 27.6
[2017-10-14] MEDS ORDERED: IPRATROPIUM-ALBUTEROL 3 ML NEB INHALATION PRN (15:06)
[2017-10-14] MEDS ORDERED: RX INFO: IV CONTRAST WAS GIVEN 1 EACH MISC MISCELLANE PRN (15:21)
[2017-10-14] MEDS ORDERED: LACTULOSE 20 GM/30 ML CUP PO SCH (16:00)
[2017-10-14] MEDS ORDERED: PROPRANOLOL 10 MG TAB PO SCH (16:00)
[2017-10-14] MEDS: PANTOPRAZOLE 40 MG/10 ML VIAL IVP SCH ×2 (16:25→20:26)
[2017-10-14] MEDS: traMADol 50 MG TAB PO PRN (16:27)
[2017-10-14] MEDS: IPRATROPIUM-ALBUTEROL 3 ML NEB INHALATION SCH ×2 (16:35→20:23)
--- NOTE | 2017-10-14 16:44 | CT ---
EXAMINATION TYPE: CT abdomen pelvis w con DATE OF EXAM: 10/14/2017 COMPARISON: NONE HISTORY: Patient complains of generalized abdomen pain and bloody stool. CT DLP: 1560 mGycm CONTRAST: CT scan of the abdomen and pelvis is performed without Oral Contrast and with IV Contrast, patient in jected with 100 mL of Omnipaque 300. FINDINGS: LUNG BASES-: Basilar atelectasis and pleural effusions. LIVER/GB: There is evidence of hepatomegaly. Lobulated hepatic contour with multiple areas of decre ased attenuation suggesting underlying hepatic lesions. There is intra and extra hepatic biliary duct al dilatation. Masslike area inferior right hepatic lobe measuring approximately 6.6 x 6.6 cm. Cholec ystectomy clips are in place. Fluid about the liver edge.There is filling defect in the region of the portal confluence and portal vein as well as the origin of the SMV. Underlying thrombus is suspected . Further evaluation with MRI would be of value. PANCREAS: No inflammation. No distinct mass. SPLEEN: Splenomegaly measuring 14.5 cm craniocaudal dimension. ADRENALS: No nodule. No thickening. KIDNEYS/BLADDER: No hydronephrosis. No nephrolithiasis. No distinct renal mass. Urinary bladder g rossly unremarkable. BOWEL: There is small bowel wall thickening as well as thickening of the right hemicolon. Nonspecific enterocolitis suspected. Differential diagnostic possibilities include vascular, inflammatory and in fectious etiologies. No evidence of bowel perforation or abscess. GENITAL ORGANS: No gross abnormality. LYMPH NODES: No greater than 1cm abdominal or pelvic lymph nodes are appreciated. AORTA: Atheromatous changes of the abdominal aorta without evidence for aneurysm. OSSEOUS STRUCTURES: No significant abnormality is seen. OTHER: Ascites seen throughout the abdomen and pelvis [id number] in degree. Small hiatal hernia . IMPRESSION: 1. Thrombus suggested within the alejandra hepatis, portal confluence and proximal SMV. Intrahepatic thro mbus difficult to exclude. MRI with MRV recommended. 2. Hepatosplenomegaly with changes of cirrhotic liver disease. Masslike area right hepatic lobe sugge stive possible hepatoma. Metastatic disease difficult to exclude. Again MRI recommended. 3. Ascites as noted. 4. Basilar atelectasis and effusions. 5. Wall thickening small bowel and right hemicolon compatible nonspecific enterocolitis. Vascular [place] ology not excluded. 6 portal venous hypertension.
[2017-10-14] MEDS: INSULIN ASPART 100 UNIT/ML 1 ML 10 ML VIAL SQ SCH (17:11)
[2017-10-14] MEDS: AMOXIC-POT CLAV 875-125MG 1 EACH TAB PO SCH (20:26)
[2017-10-14] MEDS: MORPHINE SULFATE 4 MG/ML SYRINGE IVP PRN (20:36)
[2017-10-14] MEDS ORDERED: MIRTAZAPINE 15 MG TAB PO SCH (21:00)
--- NOTE | 2017-10-14 21:39 | P.HPIM ---
History of Present Illness H&P Date: 10/14/17 Chief Complaint: Hypotension Patient is a 57-year-old male with a known history of hepatitis C, alcoholic liver cirrhosis, radiographic findings of infiltrative liver mass status post liver biopsy showing stage IV fibrosis and chronic active hepatitis but no malignancy, esophageal esophageal varices recently hospitalized 2 weeks ago with acute upper GI bleed secondary to esophageal varices status post variceal ligation. Patient was admitted to the hospital with abdominal pain and ascites. Patient did improve symptomatically and was transferred to psychiatric unit due to suicidal ideation. Today patient was found to be hypotensive systolic blood pressure in 70s and was transferred to select care unit for further evaluation. No fever no chills. Blood pressure improved with IV fluid bolus. Currently patient is complaining of right upper quadrant abdominal discomfort. Denied any nausea or vomiting. No hematemesis or melena. No chest pain or shortness of breath. Patient is slightly confused otherwise. Ammonia 88. Liver enzymes are trending down compared to recent admission. CT abdomen and pelvis with contrast showed thrombus suggested within the alejandra hepatis. Hepatosplenomegaly and nonspecific enterocolitis. Due to history of recent variceal bleed, anticoagulation is deferred and until elevation by vascular surgery and GI. Review of Systems Constitutional: Patient denies any fever or chills . No generalized weakness or weight loss. Abdomen: Patient denied nausea vomiting and diarrhea . Patient does have abdominal pain Cardiovascular: Patient denies any chest pain or short of breath no palpitations. Respiratory: patient denied any cough is from production. No shortness of breath Neurologic: Patient denied any numbness or tingling headache. Musculoskeletal: Patient denies any complaints of joint swelling or deformity. Skin: Negative Psychiatric: Confused Endocrine: No heat or cold intolerance. No recent weight gain. Genitourinary: No dysuria or hematuria. All other 14 point ROS negative except the above Past Medical History Past Medical History: GERD/Reflux, Hypertension, Pneumonia Additional Past Medical History / Comment(s): chronic back pain History of Any Multi-Drug Resistant Organisms: None Reported Past Surgical History: Adenoidectomy, Appendectomy, Cholecystectomy, Orthopedic Surgery, Tonsillectomy Past Anesthesia/Blood Transfusion Reactions: No Reported Reaction Smoking Status: Former smoker - Past Family History Mother History Unknown: Yes Additional Family Medical History / Comment(s): [place] Medications and Allergies Home Medications Medication Instructions Recorded Confirmed Type Beclomethasone Dipropionate [Qvar 1 puff INHALATION RT-DAILY 10/08/17 10/14/17 History 80 mcg] Citalopram Hydrobromide [CeleXA] 40 mg PO DAILY 10/08/17 10/14/17 History Furosemide [Lasix] 80 mg PO DAILY 10/08/17 10/14/17 History HYDROcodone/APAP 5-325MG [[place] 1 tab PO QID PRN 10/08/17 10/14/17 History 5-325] Mirtazapine [Remeron] 15 mg PO HS 10/08/17 10/14/17 History Omeprazole 20 mg PO DAILY 10/08/17 10/14/17 History Propranolol [Inderal] 10 mg PO TID 10/08/17 10/14/17 History Spironolactone [Aldactone] 25 mg PO DAILY 10/08/17 10/14/17 History Amoxic-Pot Clav 875-125Mg 1 tab PO Q12HR #10 tablet 10/13/17 10/14/17 Rx [Augmentin 875-125] Ipratropium/Albuterol Sulfate 1 puff INHALATION RT-QID 10/14/17 10/14/17 History [Combivent Respimat Inhaler] predniSONE See Taper PO DIRECTED 10/14/17 10/14/17 History Allergies Allergy/AdvReac Type Severity Reaction Status Date / Time No Known Allergies Allergy Verified 10/14/17 13:32 Physical Exam Vitals: PHYSICAL EXAMINATION: Patient is lying in the bed comfortably, no acute distress, awake alert and oriented. But confused.. HEENT: Normocephalic. Neck is supple. Pupils reactive. Nostrils clear. Oral cavity is moist. Ears reveal no drainage. Neck reveals no JVD, carotid bruits, or thyromegaly. CHEST EXAMINATION: Trachea is central. Symmetrical expansion. Lung richardson clear to auscultation and percussion. CARDIAC: Normal S1, S2 with no gallops. Mild systolic murmur. ABDOMEN: Soft. Distended. No guarding no rigidity. Nontender. Bowel sounds normal. No organomegaly. No abdominal bruits. Extremities: reveal no edema. No clubbing or cyanosis Neurologically awake, alert, oriented x3 with well-coordinated movements. No focal deficits noted Skin: No rash or skin lesions. Psychiatric: Coperative. Nonsuicidal Musculoskeletal: No joint swelling or deformity. Normal range of motion. Thrombosis Risk Factor Assmnt - DVT/VTE Prophylaxis DVT/VTE Prophylaxis: Pharmacologic Prophylaxis ordered Assessment and Plan Assessment: Hypotension. Improved with fluid bolus. Rule out infection. Follow-up chest x -ray and UA Right upper quadrant abdominal pain. Multifactorial with new CT findings of thrombus in the alejandra hepatis, liver cirrhosis and ascites Hepatic encephalopathy with elevated ammonia level Alcoholic liver cirrhosis with stage IV fibrosis radiographic findings of infiltrative liver mass status post liver biopsy showing stage IV fibrosis and chronic active hepatitis but no malignancy esophageal esophageal varices recently hospitalized 2 weeks ago with acute upper GI bleed secondary to esophageal varices status post variceal ligation. History of alcohol abuse Hepatitis C Elevated AST and ALT and alk phos Chronic back pain Polysubstance abuse Depression with suicidal ideation. Was in the psychiatric unit today DVT prophylaxis Plan: Patient will be continued on lactulose. Continue with Lasix and spironolactone with holding parameters. Due to CT finding of alejandra hepatis thrombosis, we'll consult vascular surgery and GI for further evaluation and possible starting on anticoagulation. anticoagulation not started at this time due to recent variceal bleed and anemia. We will continue to monitor closely . Further recommendations based on clinical course. Prognosis is guarded Time with Patient: Greater than 30
--- NOTE | 2017-10-14 22:06 | XR ---
EXAMINATION TYPE: XR chest 1V DATE OF EXAM: 10/14/2017 COMPARISON: 10/13/2017 HISTORY: Cough TECHNIQUE: Single frontal view of the chest is obtained. FINDINGS: There is some linear density in the left lower lung field. There are similar changes at th e right lung base. There is no heart failure. There are chest leads. IMPRESSION: There is bilateral atelectasis that is not significantly different than yesterday. No he art failure seen.
[2017-10-14] MEDS: LACTULOSE 20 GM/30 ML CUP PO SCH (23:28)
[2017-10-15] MEDS: MORPHINE SULFATE 4 MG/ML SYRINGE IVP PRN ×2 (04:40→08:19)
[2017-10-15] MEDS: INSULIN ASPART 100 UNIT/ML 1 ML 10 ML VIAL SQ SCH ×2 (05:01→06:32)
[2017-10-15 05:12] LABS: Appearance,Urine Clear (Clear); Bilirubin,Urine Negative (Negative); Blood,Urine Negative (Negative); Color,Urine Yellow; Glucose,Urine (UA) Negative (Negative); Ketones,Urine Negative (Negative); Leukocyte Esterase,Urine Negative (Negative); Nitrite,Urine Negative (Negative); Protein,Urine Trace (Negative); Specific Gravity,Urine 1.043 (1.001-1.035); Urobilinogen,Urine <2.0 mg/dL (<2.0)
[2017-10-15] MEDS ORDERED: PANTOPRAZOLE 40 MG TABLET PO SCH (07:30)
[2017-10-15 07:59] LABS: ALT 88 U/L (21-72); AST 97 U/L (17-59); Albumin 2.5 g/dL (3.5-5.0); Alkaline Phosphatase 519 U/L (38-126); Anion Gap 10 mmol/L; Blood Urea Nitrogen 21 mg/dL (9-20); Calcium 8.2 mg/dL (8.4-10.2); Carbon Dioxide 23 mmol/L (22-30); Chloride 107 mmol/L (98-107); Glucose 149 mg/dL (74-99); Magnesium 2.2 mg/dL (1.6-2.3); Potassium 4.3 mmol/L (3.5-5.1); Sodium 140 mmol/L (137-145); Total Bilirubin 1.7 mg/dL (0.2-1.3)
[2017-10-15] MEDS ORDERED: BUDESONIDE 0.5 MG/2 ML NEBU INHALATION SCH (08:00)
[2017-10-15 08:03] LABS: Basophils # (A) 0.1 k/uL (0-0.2); Basophils % (A) 0 %; Eosinophils % (A) 0 %; HGB 8.5 gm/dL (13.0-17.5); Hypochromasia Marked; Lymphocytes # (A) 1.9 k/uL (1.0-4.8); Lymphocytes % (A) 15 %; MCH 28.3 pg (25.0-35.0); MCHC 30.5 g/dL (31.0-37.0); Mean Platelet Volume 8.8; Monocytes # (A) 0.7 k/uL (0-1.0); Monocytes % (A) 5 %; Neutrophils # (A) 9.4 k/uL (1.3-7.7); Neutrophils % (A) 77 %; Platelet Count 263 k/uL (150-450); Poikilocytosis Slight; RBC 3.01 m/uL (4.30-5.90); RDW 15.9 % (11.5-15.5); WBC 12.2 k/uL (3.8-10.6)
[2017-10-15] MEDS: PANTOPRAZOLE 40 MG/10 ML VIAL IVP SCH (08:15)
[2017-10-15] MEDS: LACTULOSE 20 GM/30 ML CUP PO SCH (08:15)
[2017-10-15 08:29] VITALS: RESP 16
[2017-10-15 08:36] LABS: Glucose,Whole Blood 165 mg/dL (75-99)
[2017-10-15 08:36] LABS: Glucose,Whole Blood 154 mg/dL (75-99)
[2017-10-15 08:36] LABS: Glucose,Whole Blood 207 mg/dL (75-99)
[2017-10-15 08:36] LABS: Glucose,Whole Blood 248 mg/dL (75-99)
[2017-10-15] MEDS ORDERED: SPIRONOLACTONE 25 MG TAB PO SCH (09:00)
[2017-10-15] MEDS ORDERED: CITALOPRAM HYDROBROMIDE 20 MG TAB PO SCH (09:00)
[2017-10-15] MEDS ORDERED: HEPARIN SODIUM,PORCINE 5,000 UNIT/ML 1 ML VIAL SQ SCH (09:00)
[2017-10-15] MEDS ORDERED: FUROSEMIDE 80 MG TAB PO SCH (09:00)
[2017-10-15] MEDS ORDERED: predniSONE 20 MG TAB PO SCH (09:00)
--- NOTE | 2017-10-15 09:07 | CONS ---
DATE OF CONSULTATION: 10/15/2017 This is a 57-year-old gentleman who has been admitted to [facility] with history of alcohol liver cirrhosis history, history of hepatitis C. The patient came with bleeding varices with lower GI bleed. The patient had a CT scan of the abdomen showed there is thrombus suggested within the alejandra hepatis. The patient also has hepatomegaly and nonspecific enterocolitis. The patient is on subcu heparin. Because of bleeding, patient heparin. The patient has history of hypertension controlled with medication. PHYSICAL EXAMINATION: On examination, patient is seen in his room. NECK: Supple. No bruit appreciated. Chest is clear to auscultation. Abdomen is soft, nontender. Some distention noted. Most likely ascitic fluid Femoral pulses are present. IMPRESSION: Hepatitis C with cirrhosis of the liver suggestive of a thrombus in the portal vein. At this point, I will discuss with the Internal Medicine. There is a risk of bleeding if he fully anticoagulate the patient. I am not sure if this is acute or chronic thrombus. Most likely this gentleman will benefit from [facility] where they have a [facility] team for the liver for further opinion. MMODL / IJN: [id number] / MTDD
[2017-10-15] MEDS: IPRATROPIUM-ALBUTEROL 3 ML NEB INHALATION SCH (10:10)
[2017-10-15] MEDS: AMOXIC-POT CLAV 875-125MG 1 EACH TAB PO SCH (10:40)
[2017-10-15] MEDS: traMADol 50 MG TAB PO PRN (10:44)
[2017-10-15 11:00] VITALS: BP 115/57; PULSE 78; TEMP 97
--- NOTE | 2017-10-15 11:14 | P.CONS ---
History of Present Illness - Reason for Consult Consult date: 10/15/17 GI bleed Requesting physician: Susan Henry - History of Present Illness 57-year-old homeless male with history of chronic HCV, alcohol liver cirrhosis, portal hypertension and esophageal varices ascites recently hospitalized 3 weeks ago with acute upper GI bleed secondary to esophageal varices status post variceal ligation. Patient underwent additional radiographic imaging including CT and MRI of the liver which reported possible infiltrative mass. He underwent a liver core biopsy on 10/06/2017 with findings of stage IV cirrhosis fibrosis with moderate chronic active hepatitis grade 3/4. Core biopsy negative for malignancy despite alpha-fetoprotein marker elevated at 3831. Patient was discharged to a local custodial and was readmitted over a week ago and [facility] with diarrhea and discharge. He returns yesterday with reports of mixed bowel movements black/red in color with abdominal discomfort. Discharge hemoglobin on 10/13/2017 was 11.1. Admission 11 8.5. MCV 93. Platelet 263. INR 1.2 on 10/10/2017. Denies hematemesis coffee-ground emesis. Afebrile. CT abdomen and pelvis suggested thrombus within the alejandra hepatis portal confluence and proximal SMV. Intrahepatic thrombus difficult to exclude. Hepatosplenomegaly with changes of cirrhotic liver disease. Ascites. Portal venous hypertension. Review of Systems Constitutional: Denies fever, chills, sweats, weight gain, or loss. HEENT: History of intracranial subarachnoid hemorrhage. Negative for migraines , blurred vision or loss, earaches, drainage, tinnitus, oral mucosal lesions, dysphagia, or odynophagia. Cardiac: Negative for chest pain, arrhythmias, or palpitation. Respiratory: Negative for shortness of breath, hemoptysis, cough, or sputum production. Gastrointestinal: See HPI for pertinent findings. Genitourinary: Negative for hematuria, urgency, frequency, polyuria, dysuria, or penile discharge. Musculoskeletal: Negative for muscle aches, swelling, arthritis, and arthralgias. Neurologic: Negative for stroke or TIA. Endocrine: Negative for thyroid problems. Skin: Negative for rash or itching. Psychiatric: Negative history for depression and anxiety Past Medical History Past Medical History: GERD/Reflux, Hypertension, Pneumonia Additional Past Medical History / Comment(s): chronic back pain History of Any Multi-Drug Resistant Organisms: None Reported Past Surgical History: Adenoidectomy, Appendectomy, Cholecystectomy, Orthopedic Surgery, Tonsillectomy Past Anesthesia/Blood Transfusion Reactions: No Reported Reaction Smoking Status: Former smoker - Past Family History Mother History Unknown: Yes Additional Family Medical History / Comment(s): huntingtons Medications and Allergies Home Medications Medication Instructions Recorded Confirmed Type Beclomethasone Dipropionate [Qvar 1 puff INHALATION RT-DAILY 10/08/17 10/14/17 History 80 mcg] Citalopram Hydrobromide [CeleXA] 40 mg PO DAILY 10/08/17 10/14/17 History Furosemide [Lasix] 80 mg PO DAILY 10/08/17 10/14/17 History HYDROcodone/APAP 5-325MG [[place] 1 tab PO QID PRN 10/08/17 10/14/17 History 5-325] Mirtazapine [Remeron] 15 mg PO HS 10/08/17 10/14/17 History Omeprazole 20 mg PO DAILY 10/08/17 10/14/17 History Propranolol [Inderal] 10 mg PO TID 10/08/17 10/14/17 History Spironolactone [Aldactone] 25 mg PO DAILY 10/08/17 10/14/17 History Amoxic-Pot Clav 875-125Mg 1 tab PO Q12HR #10 tablet 10/13/17 10/14/17 Rx [Augmentin 875-125] Ipratropium/Albuterol Sulfate 1 puff INHALATION RT-QID 10/14/17 10/14/17 History [Combivent Respimat Inhaler] predniSONE See Taper PO DIRECTED 10/14/17 10/14/17 History Allergies Allergy/AdvReac Type Severity Reaction Status Date / Time No Known Allergies Allergy Verified 10/14/17 13:32 Physical Exam Vitals: Vital Signs Temp Pulse Pulse Resp BP Pulse Ox 10/15/17 11:02 78 16 10/15/17 11:00 97.0 F L 78 16 115/57 97 10/15/17 08:00 96.6 F L 82 16 113/62 97 10/15/17 04:00 98.0 F 69 18 136/78 95 10/15/17 00:00 97.6 F 72 17 128/60 94 L 10/14/17 20:33 78 16 10/14/17 20:23 77 16 10/14/17 20:00 97.9 F 69 18 123/67 97 10/14/17 16:45 72 16 10/14/17 16:35 71 14 10/14/17 15:39 97.1 F L 69 16 106/66 97 10/14/17 12:41 96.9 F L 66 20 112/61 95 Intake and Output 10/14/17 10/15/17 10/15/17 22:59 06:59 14:59 Intake Total 360 300 360 Output Total 850 400 Balance 360 -550 -40 Intake: Oral 360 300 360 Output: Urine 850 400 Other: Voiding Method Toilet Urinal Urinal # Voids 1 1 1 # Bowel Movements 1 Weight 77.8 kg General appearance: The patient is alert, oriented, in no acute distress. HET: Head is normocephalic and atraumatic. Pupils are equal and reactive. Oropharynx is clear without lesions. Neck: Supple without lymphadenopathy. Trachea midline. Heart: S1 S2. Regular rate and rhythm. Lungs: No crackles or wheezes are heard. Abdomen: Soft, nontender, distended with mild to moderate ascites with bowel sounds. No peritoneal signs. No palpable organomegaly or masses. Extremities: Normal skin color and turgor. No cyanosis, rash, ulceration, clubbing, or edema. Radial and pedal pulses are 2/4 bilaterally. Neurological: No focal deficits. Strength and sensation are grossly intact. Results CBC & Chem 7: 10/15/17 07:25 10/15/17 07:25 Labs: Abnormal Lab Results - Last 24 Hours (Table) 10/14/17 10/14/17 10/15/17 Range/Units 16:42 20:32 04:42 WBC (3.8-10.6) k/uL RBC (4.30-5.90) m/uL Hgb (13.0-17.5) gm/dL Hct (39.0-53.0) % MCHC (31.0-37.0) g/dL RDW (11.5-15.5) % Neutrophils # (1.3-7.7) k/uL BUN (9-20) mg/dL Glucose (74-99) mg/dL POC Glucose (mg/dL) 207 H 248 H 154 H (75-99) mg/dL Calcium (8.4-10.2) mg/dL Total Bilirubin (0.2-1.3) mg/dL AST (17-59) U/L ALT (21-72) U/L Alkaline Phosphatase (38-126) U/L Total Protein (6.3-8.2) g/dL Albumin (3.5-5.0) g/dL Ur Specific [place] (1.001-1.035) Urine Protein (Negative) 10/15/17 10/15/17 10/15/17 Range/Units 04:45 06:00 07:25 WBC 12.2 H (3.8-10.6) k/uL RBC 3.01 L (4.30-5.90) m/uL Hgb 8.5 L (13.0-17.5) gm/dL Hct 28.0 L (39.0-53.0) % MCHC 30.5 L (31.0-37.0) g/dL RDW 15.9 H (11.5-15.5) % Neutrophils # 9.4 H (1.3-7.7) k/uL BUN (9-20) mg/dL Glucose (74-99) mg/dL POC Glucose (mg/dL) 165 H (75-99) mg/dL Calcium (8.4-10.2) mg/dL Total Bilirubin (0.2-1.3) mg/dL AST (17-59) U/L ALT (21-72) U/L Alkaline Phosphatase (38-126) U/L Total Protein (6.3-8.2) g/dL Albumin (3.5-5.0) g/dL Ur Specific [place] 1.043 H (1.001-1.035) Urine Protein Trace H (Negative) 10/15/17 Range/Units 07:25 WBC (3.8-10.6) k/uL RBC (4.30-5.90) m/uL Hgb (13.0-17.5) gm/dL Hct (39.0-53.0) % MCHC (31.0-37.0) g/dL RDW (11.5-15.5) % Neutrophils # (1.3-7.7) k/uL BUN 21 H (9-20) mg/dL Glucose 149 H (74-99) mg/dL POC Glucose (mg/dL) (75-99) mg/dL Calcium 8.2 L (8.4-10.2) mg/dL Total Bilirubin 1.7 H (0.2-1.3) mg/dL AST 97 H (17-59) U/L ALT 88 H (21-72) U/L Alkaline Phosphatase 519 H (38-126) U/L Total Protein 6.0 L (6.3-8.2) g/dL Albumin 2.5 L (3.5-5.0) g/dL Ur Specific [place] (1.001-1.035) Urine Protein (Negative) CT scan - abdomen: report reviewed (Dr. Anaya) Assessment and Plan (1) Acute upper GI bleed Narrative/Plan: Suspect variceal bleed portal gastropathy status post EGD with variceal ligation 3 weeks ago. Current Visit: Yes Status: Acute Code(s): K92.2 - GASTROINTESTINAL HEMORRHAGE, UNSPECIFIED SNOMED Code(s): 15509687 (2) Acute blood loss anemia Current Visit: Yes Status: Acute Code(s): D62 - ACUTE POSTHEMORRHAGIC ANEMIA SNOMED Code(s): 429484990 (3) History of esophageal varices with bleeding Current Visit: No Status: Acute Code(s): Z87.19 - PERSONAL HISTORY OF OTHER DISEASES OF THE DIGESTIVE SYSTEM SNOMED Code(s): 060054666 (4) Chronic hepatitis C Current Visit: No Status: Acute Code(s): B18.2 - CHRONIC VIRAL HEPATITIS C SNOMED Code(s): 566014498 (5) Homelessness Current Visit: No Status: Acute Code(s): Z59.0 - HOMELESSNESS SNOMED Code( s): 62058929 (6) Liver cirrhosis Current Visit: No Status: Acute Code(s): K74.60 - UNSPECIFIED CIRRHOSIS OF LIVER SNOMED Code(s): 24197676 (7) Portal vein thrombosis Current Visit: Yes Status: Acute Code(s): I81 - PORTAL VEIN THROMBOSIS SNOMED Code(s): 24043887 Plan: 1. CBC every 6 hours. Clear liquid diet. Protonix 40 mg IV twice daily. SBP prophylaxis presently on Augmentin twice daily. 2. We'll repeat AFP marker. Will discuss results with oncology. 3. Anticoagulation is contraindicated at this time secondary to active GI bleed. 4. Nothing by mouth after midnight for recent surveillance EGD tomorrow. The auto mechanics teacher has discussed the risks, benefits and alternative therapies for the above-mentioned procedure and for both sedation/analgesia as well as necessary blood product administration, if indicated, as they pertain to this patient. The patient has indicated understanding and acceptance of the risks and procedures discussed. Thank you for this kind referral and the opportunity to participate in the care of your patient. This consultation was discussed with Dr. Anaya. The impression and plan of care have been directed as dictated.
--- NOTE | 2017-10-15 13:02 | P.DS ---
Providers Date of admission: 10/14/17 12:31 Expected date of discharge: 10/15/17 Attending physician: Mansi Howe Consults: 10/14/17 15:14 Consult Physician Routine Consulting Provider: Kyara Deleon Consult Reason/Comments: suicidal,depression Do you want consulting provider notified?: Yes 10/14/17 15:16 Consult Physician Routine Consulting Provider: Amanda Anaya Consult Reason/Comments: abd. pain, hx esoph. varices Do you want consulting provider notified?: Yes 10/14/17 21:09 Consult Physician Routine Consulting Provider: Alfredo Pickard Consult Reason/Comments: Portal vein thrombosis Do you want consulting provider notified?: Yes Primary care physician: Stated None Hospital Course: Discharge diagnosis Hypotension. Improved with fluid bolus. Ruled out infection. Atelectasis bilaterally as per chest x-ray and UA negative Right upper quadrant abdominal pain. Multifactorial with new CT findings of thrombus in the alejandra hepatis, liver cirrhosis and ascites Hepatic encephalopathy with elevated ammonia level Alcoholic liver cirrhosis with stage IV fibrosis radiographic findings of infiltrative liver mass status post liver biopsy showing stage IV fibrosis and chronic active hepatitis but no malignancy esophageal esophageal varices recently hospitalized 2 weeks ago with acute upper GI bleed secondary to esophageal varices status post variceal ligation. History of alcohol abuse Hepatitis C Elevated AST and ALT and alk phos Chronic back pain Polysubstance abuse Depression with suicidal ideation. Was in the psychiatric unit today DVT prophylaxis Hospital course Patient is a 57-year-old male with a known history of hepatitis C, alcoholic liver cirrhosis, radiographic findings of infiltrative liver mass status post liver biopsy showing stage IV fibrosis and chronic active hepatitis but no malignancy, esophageal esophageal varices recently hospitalized 2 weeks ago with acute upper GI bleed secondary to esophageal varices status post variceal ligation. Patient was admitted to the hospital with abdominal pain and ascites. Patient did improve symptomatically and was transferred to psychiatric unit due to suicidal ideation. Today patient was found to be hypotensive systolic blood pressure in 70s and was transferred to select care unit for further evaluation. No fever no chills. Blood pressure improved with IV fluid bolus. Currently patient is complaining of right upper quadrant abdominal discomfort. Denied any nausea or vomiting. No hematemesis or melena. No chest pain or shortness of breath. Patient is slightly confused otherwise. Ammonia 88. Liver enzymes are trending down compared to recent admission. CT abdomen and pelvis with contrast showed thrombus suggested within the alejandra hepatis. Hepatosplenomegaly and nonspecific enterocolitis. Due to history of recent variceal bleed, anticoagulation is deferred and until elevation by vascular surgery and GI. Patient was continued on lactulose. Continue with Lasix and spironolactone with holding parameters. Due to CT finding of alejandra hepatis thrombosis, did consult vascular surgery and GI for further evaluation and possible starting on anticoagulation. anticoagulation not started at this time due to recent variceal bleed and anemia. Patient was seen by GI and vascular surgery and recommended to transfer to tertiary care facility for further management and care. Discussed with [facility] transfer team and is willing to accept the patient. Patient was transferred to [facility] in stable condition. PHYSICAL EXAMINATION: Patient is lying in the bed comfortably, no acute distress, awake alert and oriented. But confused.. HEENT: Normocephalic. Neck is supple. Pupils reactive. Nostrils clear. Oral cavity is moist. Ears reveal no drainage. Neck reveals no JVD, carotid bruits, or thyromegaly. CHEST EXAMINATION: Trachea is central. Symmetrical expansion. Lung richardson clear to auscultation and percussion. CARDIAC: Normal S1, S2 with no gallops. Mild systolic murmur. ABDOMEN: Soft. Distended. No guarding no rigidity. Nontender. Bowel sounds normal. No organomegaly. No abdominal bruits. Extremities: reveal no edema. No clubbing or cyanosis Neurologically awake, alert, oriented x3 with well-coordinated movements. No focal deficits noted Skin: No rash or skin lesions. Psychiatric: Coperative. Nonsuicidal Musculoskeletal: No joint swelling or deformity. Normal range of motion. Vital Signs 10/14/17 10/14/17 10/14/17 12:41 15:39 16:35 Temperature 96.9 F L 97.1 F L Pulse Rate 71 Pulse Rate [ 66 69 Pulse Oximetery ] Respiratory 20 16 14 Rate Blood Pressure 112/61 106/66 [Right Arm] O2 Sat by Pulse 95 97 Oximetry 10/14/17 10/14/17 10/14/17 16:45 20:00 20:23 Temperature 97.9 F Pulse Rate 72 77 Pulse Rate [ 69 Pulse Oximetery ] Respiratory 16 18 16 Rate Blood Pressure 123/67 [Right Arm] O2 Sat by Pulse 97 Oximetry 10/14/17 10/15/17 10/15/17 20:33 00:00 04:00 Temperature 97.6 F 98.0 F Pulse Rate 78 Pulse Rate [ 72 69 Pulse Oximetery ] Respiratory 16 17 18 Rate Blood Pressure 128/60 136/78 [Right Arm] O2 Sat by Pulse 94 L 95 Oximetry 10/15/17 10/15/17 10/15/17 08:00 11:00 11:02 Temperature 96.6 F L 97.0 F L Pulse Rate Pulse Rate [ 82 78 78 Pulse Oximetery ] Respiratory 16 16 16 Rate Blood Pressure 113/62 115/57 [Right Arm] O2 Sat by Pulse 97 97 Oximetry Patient Condition at Discharge: Serious Plan - Discharge Summary Discharge Rx Participant: Yes New Discharge Prescriptions: Continue Citalopram Hydrobromide [CeleXA] 40 mg PO DAILY Spironolactone [Aldactone] 25 mg PO DAILY Propranolol [Inderal] 10 mg PO TID Omeprazole 20 mg PO DAILY Beclomethasone Dipropionate [Qvar 80 mcg] 1 puff INHALATION RT-DAILY Furosemide [Lasix] 80 mg PO DAILY Mirtazapine [Remeron] 15 mg PO HS HYDROcodone/APAP 5-325MG [[place] 5-325] 1 tab PO QID PRN PRN Reason: Pain predniSONE See Taper PO DIRECTED Ipratropium/Albuterol Sulfate [Combivent Respimat Inhaler] 1 puff INHALATION RT-QID Discontinued Amoxic-Pot Clav 875-125Mg [Augmentin 875-125] 1 tab PO Q12HR #10 tablet Discharge Medication List Beclomethasone Dipropionate [Qvar 80 mcg] 1 puff INHALATION RT-DAILY 10/08/17 [ History] Citalopram Hydrobromide [CeleXA] 40 mg PO DAILY 10/08/17 [History] Furosemide [Lasix] 80 mg PO DAILY 10/08/17 [History] HYDROcodone/APAP 5-325MG [[place] 5-325] 1 tab PO QID PRN 10/08/17 [History] Mirtazapine [Remeron] 15 mg PO HS 10/08/17 [History] Omeprazole 20 mg PO DAILY 10/08/17 [History] Propranolol [Inderal] 10 mg PO TID 10/08/17 [History] Spironolactone [Aldactone] 25 mg PO DAILY 10/08/17 [History] Ipratropium/Albuterol Sulfate [Combivent Respimat Inhaler] 1 puff INHALATION RT- QID 10/14/17 [History] predniSONE See Taper PO DIRECTED 10/14/17 [History] Discharge Disposition: OTHER INSTITUTION NOT DEFINED
[2017-10-15 14:57] LABS: Hemoglobin A1C 5.2 % (4.0-6.0)
== END 2017-10-15 11:32 | disposition short-term general hospital (02) | DRG 442 ==
LOC: 6SEL 12:31
PROVIDERS: ADMIT Hospitalist; ATTEND Hospitalist
DX: I81 Portal vein thrombosis (principal); D62 Acute posthemorrhagic anemia; K76.6 Portal hypertension; I95.9 Hypotension, unspecified; K72.90 Hepatic failure, unspecified without coma; K70.31 Alcoholic cirrhosis of liver with ascites; B18.2 Chronic viral hepatitis C; F32.9 Major depressive disorder, single episode, unspecified; G89.29 Other chronic pain; I10 Essential (primary) hypertension; K21.9 Gastro-esophageal reflux disease without esophagitis; K52.9 Noninfective gastroenteritis and colitis, unspecified; F19.10 Other psychoactive substance abuse, uncomplicated; M54.9 Dorsalgia, unspecified; K74.0 Hepatic fibrosis; K31.89 Other diseases of stomach and duodenum; Z79.899 Other long term (current) drug therapy; Z87.891 Personal history of nicotine dependence; Z90.49 Acquired absence of other specified parts of digestive tract
CPT/HCPCS: 71045; 74177; 80053; 81003; 82140; 83036; 83735; 85025; 94640

== ENCOUNTER 2017-10-28 11:43 | Emergency (ER) | payer OTHER ==
[2017-10-28 12:05] VITALS: TEMP 97.3
[2017-10-28] MEDS ORDERED: ONDANSETRON 4 MG/2 ML VIAL IVP STA (12:29)
[2017-10-28] MEDS ORDERED: MORPHINE SULFATE/PF 10MG/10ML VL IVP STA (12:30)
--- NOTE | 2017-10-28 12:39 | ED ---
General Adult HPI - General Chief complaint: Abdominal Pain Stated complaint: abd pain Time Seen by Provider: 10/28/17 12:06 Source: patient, RN notes reviewed Mode of arrival: wheelchair Limitations: no limitations - History of Present Illness Initial comments: Patient 57-year-old male with a similar past medical history for newly diagnosed liver cirrhosis and cancer, presented to the emergency room today with a chief complaint of upper abdominal pain. Patient states he was seen here [facility] transfer to [facility]. He states he was released 6 days ago. He states he did follow-up the family physician 4 days ago and is trying to get into a specialist. Patient states he was given a few tabs of oxycodone which she has used and is currently out. States he had increased pain after eating pizza. States pain is greatest in the left upper quadrant. Denies any other complaints or symptoms currently. - Related Data Home Medications Medication Instructions Recorded Confirmed Beclomethasone Dipropionate [Qvar 1 puff INHALATION RT-DAILY 10/08/17 10/28/17 80 mcg] Citalopram Hydrobromide [CeleXA] 40 mg PO DAILY 10/08/17 10/28/17 Furosemide [Lasix] 80 mg PO DAILY 10/08/17 10/28/17 HYDROcodone/APAP 5-325MG [[place] 1 tab PO QID PRN 10/08/17 10/28/17 5-325] Mirtazapine [Remeron] 15 mg PO HS 10/08/17 10/28/17 Propranolol [Inderal] 10 mg PO TID 10/08/17 10/28/17 Spironolactone [Aldactone] 25 mg PO DAILY 10/08/17 10/28/17 Ipratropium/Albuterol Sulfate 1 puff INHALATION RT-QID 10/14/17 10/28/17 [Combivent Respimat Inhaler] predniSONE See Taper PO DIRECTED 10/14/17 10/28/17 Albuterol Inhaler [Ventolin Hfa 1 - 2 puff INHALATION RT-Q6H PRN 10/28/17 Inhaler] Folic Acid [Folic Acid] 1 mg PO DAILY 10/28/17 10/28/17 Naproxen [Naproxen] 500 mg PO BID 10/28/17 10/28/17 Omeprazole [Omeprazole] 40 mg PO DAILY 10/28/17 10/28/17 Thiamine HCl [Vitamin B-1] 100 mg PO DAILY 10/28/17 10/28/17 oxyCODONE HCL [Oxyir] 5 mg PO TID 10/28/17 10/28/17 Previous Rx's Medication Instructions Recorded Ondansetron Odt [Zofran ODT] 4 mg PO Q8HR PRN #20 tab 10/28/17 oxyCODONE-APAP 5-325MG [Percocet 1 tab PO Q6HR PRN #6 tab 10/28/17 5-325 mg] Allergies Allergy/AdvReac Type Severity Reaction Status Date / Time No Known Allergies Allergy Verified 10/28/17 12:33 Review of Systems ROS Statement: Those systems with pertinent positive or pertinent negative responses have been documented in the HPI. ROS Other: All systems not noted in ROS Statement are negative. Past Medical History Past Medical History: GERD/Reflux, Hypertension, Liver Disease, Pneumonia Additional Past Medical History / Comment(s): chronic back pain, cirrhosis, and liver cancer History of Any Multi-Drug Resistant Organisms: None Reported Past Surgical History: Adenoidectomy, Appendectomy, Cholecystectomy, Orthopedic Surgery, Tonsillectomy Past Anesthesia/Blood Transfusion Reactions: No Reported Reaction Past Psychological History: Anxiety Smoking Status: Former smoker Past Alcohol Use History: None Reported Past Drug Use History: None Reported - Past Family History Mother History Unknown: Yes Additional Family Medical History / Comment(s): [facility] General Exam - General Exam Comments Initial Comments: General: The patient is awake and alert, in no distress, and does not appear acutely ill. Eye: Pupils are equal, round and reactive to light, extra-ocular movements are intact. No nystagmus. There is normal conjunctiva bilaterally. No signs of icterus. Ears, nose, mouth and throat: There are moist mucous membranes and no oral lesions. Neck: The neck is supple, there is no tenderness or JVD. Cardiovascular: There is a regular rate and rhythm. No murmur, rub or gallop is appreciated. Respiratory: Lungs are clear to auscultation, respirations are non-labored, breath sounds are equal. No wheezes, stridor, rales, or rhonchi. Gastrointestinal: Patient does have tenderness in the epigastric and left upper quadrants. No rebound tenderness. No guarding. No CVA tenderness. Musculoskeletal: Normal ROM, no tenderness. Strength 5/5. Sensation intact. Pulses equal bilaterally 2+. Neurological: A&O x 3. CN II-XII intact, There are no obvious motor or sensory deficits. Coordination appears grossly intact. Speech is normal. Skin: Skin is warm and dry and no rashes or lesions are noted. Psychiatric: Cooperative, appropriate mood & affect, normal judgment. Limitations: no limitations Course Vital Signs 10/28/17 12:02 Temperature 97.3 F L Pulse Rate 100 Respiratory 20 Rate Blood Pressure 128/74 O2 Sat by Pulse 99 Oximetry Medical Decision Making - Medical Decision Making Patient reexamined at this time shows no signs of distress resting comfortable. Seen at [facility] for thrombus within the portal hepatitis. Patient does have history of esophageal varices. He was seen here [facility] and seen by last pressure isn't [facility] elevated perform this procedure performed. He states he is trying follow-up with specialist. He states he was given 2 doctors follow-up with but due to insurance issues is unable to see them. Patient states he did see his family doctor 2 days ago. States they're working on the referrals. Patient's labs reviewed today shows similar findings to previous with elevation of bilirubin, AST/ALT, alk phos. Patient's hemoglobin also similar to previous. Patient's pain improved here in the emergency room. Is tolerating by mouth liquids. Patient having bowel movements. Case discussed in detail with attending physician . Patient will be discharged home to follow-up with the family doctor along with specialist. Patient given a prescription for pain medication nausea medication for symptoms. Please return if any symptoms increase or worsen. - Lab Data Result diagrams: 10/28/17 12:54 10/28/17 12:54 Lab Results 10/28/17 10/28/17 10/28/17 Range/Units 12:54 12:54 12:54 WBC 7.3 (3.8-10.6) k/uL RBC 3.45 L (4.30-5.90) m/uL Hgb 8.9 L (13.0-17.5) gm/dL Hct 30.9 L (39.0-53.0) % MCV 89.5 (80.0-100.0) fL MCH 25.7 (25.0-35.0) pg MCHC 28.7 L (31.0-37.0) g/dL RDW 16.2 H (11.5-15.5) % Plt Count 399 (150-450) k/uL Neutrophils % (Manual) 74 % Lymphocytes % (Manual) 22 % Monocytes % (Manual) 4 % Neutrophils # (Manual) 5.40 (1.3-7.7) k/uL Lymphocytes # (Manual) 1.61 (1.0-4.8) k/uL Monocytes # (Manual) 0.29 (0-1.0) k/uL Nucleated RBCs 0 (0-0) /100 WBC Hypochromasia Marked Poikilocytosis Slight Anisocytosis Slight Target Cells Present PT 11.2 (9.0-12.0) sec INR 1.2 H (<1.2) APTT 23.0 (22.0-30.0) sec Sodium 144 (137-145) mmol/L Potassium 4.5 (3.5-5.1) mmol/L Chloride 112 H (98-107) mmol/L Carbon Dioxide 18 L (22-30) mmol/L Anion Gap 14 mmol/L BUN 14 (9-20) mg/dL Creatinine 0.71 (0.66-1.25) mg/dL Est GFR (CKD-EPI)AfAm >90 (>60 ml/min/1.73 sqM) Est GFR (CKD-EPI)NonAf >90 (>60 ml/min/1.73 sqM) Glucose 95 (74-99) mg/dL Calcium 8.6 (8.4-10.2) mg/dL Total Bilirubin 3.2 H (0.2-1.3) mg/dL AST 182 H (17-59) U/L ALT 84 H (21-72) U/L Alkaline Phosphatase 870 H (38-126) U/L Total Protein 6.9 (6.3-8.2) g/dL Albumin 2.9 L (3.5-5.0) g/dL Amylase 58 (30-110) U/L Lipase 215 (23-300) U/L Urine Color Urine Appearance (Clear) Urine pH (5.0-8.0) Ur Specific [place] (1.001-1.035) Urine Protein (Negative) Urine Glucose (UA) (Negative) Urine Ketones (Negative) Urine Blood (Negative) Urine Nitrite (Negative) Urine Bilirubin (Negative) Urine Urobilinogen (<2.0) mg/dL Ur Leukocyte Esterase (Negative) Urine RBC (0-5) /hpf Urine WBC (0-5) /hpf Amorphous Sediment (None) /hpf Hyaline Casts (0-2) /lpf Urine Mucus (None) /hpf 10/28/17 Range/Units 14:05 WBC (3.8-10.6) k/uL RBC (4.30-5.90) m/uL Hgb (13.0-17.5) gm/dL Hct (39.0-53.0) % MCV (80.0-100.0) fL MCH (25.0-35.0) pg MCHC (31.0-37.0) g/dL RDW (11.5-15.5) % Plt Count (150-450) k/uL Neutrophils % (Manual) % Lymphocytes % (Manual) % Monocytes % (Manual) % Neutrophils # (Manual) (1.3-7.7) k/uL Lymphocytes # (Manual) (1.0-4.8) k/uL Monocytes # (Manual) (0-1.0) k/uL Nucleated RBCs (0-0) /100 WBC Hypochromasia Poikilocytosis Anisocytosis Target Cells PT (9.0-12.0) sec INR (<1.2) APTT (22.0-30.0) sec Sodium (137-145) mmol/L Potassium (3.5-5.1) mmol/L Chloride (98-107) mmol/L Carbon Dioxide (22-30) mmol/L Anion Gap mmol/L BUN (9-20) mg/dL Creatinine (0.66-1.25) mg/dL Est GFR (CKD-EPI)AfAm (>60 ml/min/1.73 sqM) Est GFR (CKD-EPI)NonAf (>60 ml/min/1.73 sqM) Glucose (74-99) mg/dL Calcium (8.4-10.2) mg/dL Total Bilirubin (0.2-1.3) mg/dL AST (17-59) U/L ALT (21-72) U/L Alkaline Phosphatase (38-126) U/L Total Protein (6.3-8.2) g/dL Albumin (3.5-5.0) g/dL Amylase (30-110) U/L Lipase (23-300) U/L Urine Color Dark Brown Urine Appearance Cloudy (Clear) Urine pH 6.0 (5.0-8.0) Ur Specific [place] 1.034 (1.001-1.035) Urine Protein 1+ H (Negative) Urine Glucose (UA) Negative (Negative) Urine Ketones Trace H (Negative) Urine Blood Negative (Negative) Urine Nitrite Negative (Negative) Urine Bilirubin 2+ H (Negative) Urine Urobilinogen 4.0 (<2.0) mg/dL Ur Leukocyte Esterase Negative (Negative) Urine RBC 2 (0-5) /hpf Urine WBC 4 (0-5) /hpf Amorphous Sediment Few H (None) /hpf Hyaline Casts 60 H (0-2) /lpf Urine Mucus Many H (None) /hpf Disposition Clinical Impression: Liver cirrhosis, H/O ETOH abuse, Liver mass, Chronic hepatitis C Disposition: HOME SELF-CARE Condition: Stable Instructions: Cirrhosis (ED) Additional Instructions: Please use medication as discussed. Please follow-up with family doctor in the next 2 days. Please return to emergency room if the symptoms increase or worsen or for any other concerns. Prescriptions: Ondansetron Odt [Zofran ODT] 4 mg PO Q8HR PRN #20 tab PRN Reason: Nausea oxyCODONE-APAP 5-325MG [Percocet 5-325 mg] 1 tab PO Q6HR PRN #6 tab PRN Reason: Pain Referrals: Kandace Hamlin MD [Primary Care Provider] - 1-2 days Time of Disposition: 15:00
[2017-10-28 13:21] LABS: Anisocytosis Slight; HCT 30.9 % (39.0-53.0); HGB 8.9 gm/dL (13.0-17.5); Hypochromasia Marked; MCH 25.7 pg (25.0-35.0); MCHC 28.7 g/dL (31.0-37.0); MCV 89.5 fL (80.0-100.0); Mean Platelet Volume 9.4; Platelet Count 399 k/uL (150-450); Poikilocytosis Slight; RBC 3.45 m/uL (4.30-5.90); RDW 16.2 % (11.5-15.5); WBC 7.3 k/uL (3.8-10.6)
[2017-10-28 13:24] LABS: ALT 84 U/L (21-72); AST 182 U/L (17-59); Albumin 2.9 g/dL (3.5-5.0); Alkaline Phosphatase 870 U/L (38-126); Amylase 58 U/L (30-110); Anion Gap 14 mmol/L; Blood Urea Nitrogen 14 mg/dL (9-20); Calcium 8.6 mg/dL (8.4-10.2); Carbon Dioxide 18 mmol/L (22-30); Chloride 112 mmol/L (98-107); Glucose 95 mg/dL (74-99); Lipase 215 U/L (23-300); Potassium 4.5 mmol/L (3.5-5.1); Sodium 144 mmol/L (137-145); Total Bilirubin 3.2 mg/dL (0.2-1.3); Total Protein 6.9 g/dL (6.3-8.2)
--- NOTE | 2017-10-28 13:29 | XR ---
Abdomen HISTORY: Pain Frontal view of the abdomen on 2 images correlated prior exam CT abdomen pelvis 10/14/2017 Surgical clips are present in the right upper quadrant. There are air-fluid levels without bowel dist ention. Patchy basilar density is present in the right lower lobe. No pneumoperitoneum. There is incr eased density within the abdomen. IMPRESSION: May be underlying ileus or enteritis, ascites. Basilar atelectasis.
[2017-10-28 13:44] LABS: INR 1.2 (<1.2); Prothrombin Time 11.2 sec (9.0-12.0)
[2017-10-28 14:07] LABS: Lymphocytes # (M) 1.61 k/uL (1.0-4.8); Monocytes # (M) 0.29 k/uL (0-1.0); Neutrophils % (M) 74 %; Nucleated Red Blood Cells 0 /100 WBC (0-0); Target Cells Present; Total Cells Counted 100
[2017-10-28] MEDS ORDERED: SODIUM CHLORIDE 0.9% 1,000 ML IV STA (14:09)
[2017-10-28 14:33] LABS: Amorphous Sediment,Urine Few /hpf; Appearance,Urine Cloudy (Clear); Bilirubin,Urine 2+ (Negative); Blood,Urine Negative (Negative); Color,Urine Dark Brown; Glucose,Urine (UA) Negative (Negative); Hyaline Casts,Urine 60 /lpf (0-2); Ketones,Urine Trace (Negative); Leukocyte Esterase,Urine Negative (Negative); Mucus,Urine Many /hpf; Nitrite,Urine Negative (Negative); Protein,Urine 1+ (Negative); RBC,Urine 2 /hpf (0-5); Specific Gravity,Urine 1.034 (1.001-1.035); WBC,Urine 4 /hpf (0-5)
[2017-10-28 14:56] VITALS: BP 121/81; PULSE 68; RESP 16
== END 2017-10-28 15:21 | disposition home or self-care (01) ==
LOC: EC 11:43
DX: K74.60 Unspecified cirrhosis of liver (principal); B18.2 Chronic viral hepatitis C; Z85.05 Personal history of malignant neoplasm of liver; K21.9 Gastro-esophageal reflux disease without esophagitis; I10 Essential (primary) hypertension; Z90.49 Acquired absence of other specified parts of digestive tract; Z87.891 Personal history of nicotine dependence; Z79.52 Long term (current) use of systemic steroids; Z79.899 Other long term (current) drug therapy; Z79.1 Long term (current) use of non-steroidal anti-inflammatories (NSAID); Z79.891 Long term (current) use of opiate analgesic
CPT/HCPCS: 36415; 80053; 82150; 83690; 85025; 85610; 85730; 81001; 74018; 99284; 96374; 96375; 96361; J2405; J2270

== ENCOUNTER 2017-11-03 16:23 | Emergency (ER) | payer OTHER ==
[2017-11-03 16:57] VITALS: RESP 18
--- NOTE | 2017-11-03 17:20 | ED ---
General Adult HPI - General Chief complaint: Abdominal Pain Stated complaint: leg & stomach pain Time Seen by Provider: 11/03/17 17:07 Source: patient, RN notes reviewed Mode of arrival: ambulatory Limitations: no limitations - History of Present Illness Initial comments: 57-year-old male presents to the emergency department with a chief complaint of swollen abdomen. Patient was recently diagnosed with liver cancer and ascites. Patient states that he's noticed increased abdominal sided bilateral lower extremity swelling he states he's noticed some increased weakness the past 2 days as well. He is currently in the works to get worked up for his newly diagnosed liver cancer and cirrhosis but he states that he was told he needs to have his abdomen drain every 2-1/2 weeks he states it's been about 2 and half weeks. He denies any nausea vomiting. He denies any other symptoms at this time. Patient denies any recent fever, chills, shortness of breath, chest pain, back pain, nausea vomiting, numbness or tingling, dysuria or hematuria, constipation or diarrhea, headaches or visual changes, or any other current symptoms. - Related Data Home Medications Medication Instructions Recorded Confirmed Beclomethasone Dipropionate [Qvar 1 puff INHALATION RT-BID 10/08/17 11/03/17 80 mcg] Mirtazapine [Remeron] 15 mg PO HS 10/08/17 11/03/17 Albuterol Inhaler [Ventolin Hfa 2 puff INHALATION RT-Q6H PRN 10/28/17 11/03/17 Inhaler] Folic Acid [Folic Acid] 1 mg PO DAILY 10/28/17 11/03/17 Naproxen [Naproxen] 500 mg PO BID PRN 10/28/17 11/03/17 Omeprazole [Omeprazole] 40 mg PO DAILY 10/28/17 11/03/17 Thiamine HCl [Vitamin B-1] 100 mg PO DAILY 10/28/17 11/03/17 Citalopram Hydrobromide [CeleXA] 20 mg PO DAILY 11/03/17 11/03/17 Previous Rx's Medication Instructions Recorded Ondansetron Odt [Zofran ODT] 4 mg PO Q8HR PRN #20 tab 10/28/17 oxyCODONE-APAP 5-325MG [Percocet 1 tab PO Q6HR PRN #6 tab 10/28/17 5-325 mg] Allergies Allergy/AdvReac Type Severity Reaction Status Date / Time No Known Allergies Allergy Verified 11/03/17 17:21 Review of Systems ROS Statement: Those systems with pertinent positive or pertinent negative responses have been documented in the HPI. ROS Other: All systems not noted in ROS Statement are negative. Past Medical History Past Medical History: GERD/Reflux, Hypertension, Liver Disease, Pneumonia Additional Past Medical History / Comment(s): chronic back pain, cirrhosis, and liver cancer History of Any Multi-Drug Resistant Organisms: None Reported Past Surgical History: Adenoidectomy, Appendectomy, Cholecystectomy, Orthopedic Surgery, Tonsillectomy Past Anesthesia/Blood Transfusion Reactions: No Reported Reaction Past Psychological History: Anxiety Smoking Status: Current every day smoker Past Alcohol Use History: None Reported Past Drug Use History: None Reported - Past Family History Mother History Unknown: Yes Additional Family Medical History / Comment(s): [facility] General Exam - General Exam Comments Initial Comments: General: The patient is awake and alert, in no distress, and does not appear acutely ill. Eye: Pupils are equal, round and reactive to light, extra-ocular movements are intact; there is normal conjunctiva bilaterally. No signs of icterus. Ears, nose, mouth and throat: There are moist mucous membranes. Neck: The neck is supple, there is no tenderness. Cardiovascular: There is a regular rate and rhythm. No murmur, rub or gallop is appreciated. Respiratory: Lungs are clear to auscultation, respirations are non-labored, breath sounds are equal. No wheezes, stridor, rales, or rhonchi. Gastrointestinal: Ascites, non-tender abdomen without masses or organomegaly noted. There is no rebound or guarding present. No CVA tenderness. Bowel sounds are unremarkable. Back: There is no tenderness to palpation in the midline. There is no obvious deformity. No rashes noted. Musculoskeletal: Normal ROM, no tenderness, There is bilateral pedal edema. There is no calf tenderness or swelling. Sensation intact. Pulses equal bilaterally 2+. Neurological: CN II-XII intact, There are no obvious motor or sensory deficits. Coordination appears grossly intact. Speech is normal. Skin: Skin is warm and dry and no rashes or lesions are noted. Psychiatric: Cooperative, appropriate mood & affect, normal judgment. Limitations: no limitations Course Vital Signs 11/03/17 16:54 Temperature 98.2 F Pulse Rate 102 H Respiratory 18 Rate Blood Pressure 162/82 O2 Sat by Pulse 99 Oximetry Medical Decision Making - Medical Decision Making 57-year-old male presents for ascites. At this time lab work has been reviewed. At this time we did discuss the patient can follow-up outpatient for the paracentesis and he is given a prescription for this. At this time patient will be discharged home. We did discuss return parameters all questions. He states that he understood. He was given information to call call Center to set up this procedure. At this time the patient will be discharged. - Lab Data Result diagrams: 11/03/17 17:30 11/03/17 17:30 Lab Results 11/03/17 11/03/17 11/03/17 Range/Units 17:30 17:30 17:30 WBC 7.1 (3.8-10.6) k/uL RBC 3.85 L (4.30-5.90) m/uL Hgb 9.7 L (13.0-17.5) gm/dL Hct 33.7 L (39.0-53.0) % MCV 87.6 (80.0-100.0) fL MCH 25.1 (25.0-35.0) pg MCHC 28.7 L (31.0-37.0) g/dL RDW 15.9 H (11.5-15.5) % Plt Count 388 (150-450) k/uL Neutrophils % 62 % Lymphocytes % 25 % Monocytes % 8 % Eosinophils % 1 % Basophils % 1 % Neutrophils # 4.4 (1.3-7.7) k/uL Lymphocytes # 1.8 (1.0-4.8) k/uL Monocytes # 0.6 (0-1.0) k/uL Eosinophils # 0.1 (0-0.7) k/uL Basophils # 0.1 (0-0.2) k/uL Hypochromasia Marked Poikilocytosis Moderate PT (9.0-12.0) sec INR (<1.2) APTT (22.0-30.0) sec Sodium 143 (137-145) mmol/L Potassium 4.1 (3.5-5.1) mmol/L Chloride 109 H (98-107) mmol/L Carbon Dioxide 18 L (22-30) mmol/L Anion Gap 16 mmol/L BUN 14 (9-20) mg/dL Creatinine 0.60 L (0.66-1.25) mg/dL Est GFR (CKD-EPI)AfAm >90 (>60 ml/min/1.73 sqM) Est GFR (CKD-EPI)NonAf >90 (>60 ml/min/1.73 sqM) Glucose 98 (74-99) mg/dL Plasma Lactic Acid Nish 1.8 (0.7-2.0) mmol/L Calcium 8.6 (8.4-10.2) mg/dL Phosphorus 3.1 (2.5-4.5) mg/dL Magnesium 1.7 (1.6-2.3) mg/dL Total Bilirubin 3.6 H (0.2-1.3) mg/dL AST 170 H (17-59) U/L ALT 71 (21-72) U/L Alkaline Phosphatase 691 H (38-126) U/L Ammonia 14 (<30) umol/L Total Protein 7.0 (6.3-8.2) g/dL Albumin 3.0 L (3.5-5.0) g/dL Amylase 52 (30-110) U/L Lipase 216 (23-300) U/L Urine Color Urine Appearance (Clear) Urine pH (5.0-8.0) Ur Specific [place] (1.001-1.035) Urine Protein (Negative) Urine Glucose (UA) (Negative) Urine Ketones (Negative) Urine Blood (Negative) Urine Nitrite (Negative) Urine Bilirubin (Negative) Urine Urobilinogen (<2.0) mg/dL Ur Leukocyte Esterase (Negative) 11/03/17 11/03/17 Range/Units 20:04 20:18 WBC (3.8-10.6) k/uL RBC (4.30-5.90) m/uL Hgb (13.0-17.5) gm/dL Hct (39.0-53.0) % MCV (80.0-100.0) fL MCH (25.0-35.0) pg MCHC (31.0-37.0) g/dL RDW (11.5-15.5) % Plt Count (150-450) k/uL Neutrophils % % Lymphocytes % % Monocytes % % Eosinophils % % Basophils % % Neutrophils # (1.3-7.7) k/uL Lymphocytes # (1.0-4.8) k/uL Monocytes # (0-1.0) k/uL Eosinophils # (0-0.7) k/uL Basophils # (0-0.2) k/uL Hypochromasia Poikilocytosis PT 11.1 (9.0-12.0) sec INR 1.2 H (<1.2) APTT 23.1 (22.0-30.0) sec Sodium (137-145) mmol/L Potassium (3.5-5.1) mmol/L Chloride (98-107) mmol/L Carbon Dioxide (22-30) mmol/L Anion Gap mmol/L BUN (9-20) mg/dL Creatinine (0.66-1.25) mg/dL Est GFR (CKD-EPI)AfAm (>60 ml/min/1.73 sqM) Est GFR (CKD-EPI)NonAf (>60 ml/min/1.73 sqM) Glucose (74-99) mg/dL Plasma Lactic Acid Nish (0.7-2.0) mmol/L Calcium (8.4-10.2) mg/dL Phosphorus (2.5-4.5) mg/dL Magnesium (1.6-2.3) mg/dL Total Bilirubin (0.2-1.3) mg/dL AST (17-59) U/L ALT (21-72) U/L Alkaline Phosphatase (38-126) U/L Ammonia (<30) umol/L Total Protein (6.3-8.2) g/dL Albumin (3.5-5.0) g/dL Amylase (30-110) U/L Lipase (23-300) U/L Urine Color Dark Yellow Urine Appearance Clear (Clear) Urine pH 5.5 (5.0-8.0) Ur Specific [place] 1.022 (1.001-1.035) Urine Protein Trace H (Negative) Urine Glucose (UA) Negative (Negative) Urine Ketones 1+ H (Negative) Urine Blood Negative (Negative) Urine Nitrite Negative (Negative) Urine Bilirubin 1+ H (Negative) Urine Urobilinogen 3.0 (<2.0) mg/dL Ur Leukocyte Esterase Negative (Negative) - Radiology Data Radiology results: report reviewed, image reviewed Disposition Clinical Impression: Ascites, Liver cirrhosis, Liver mass Disposition: HOME SELF-CARE Condition: Stable Instructions: Ascites (ED) Additional Instructions: Please use medication as discussed. Please follow up with family doctor if symptoms have not improved over the next two days. Please return to the emergency room if your symptoms increase or worsen or for any other concerns. Please follow up outpatient for the paracentesis you have been given a prescription for this. Please contact the call Center to set up an appointment at [phone]. Referrals: Kandace Hamlin MD [Primary Care Provider] - 1-2 days Time of Disposition: 20:42
[2017-11-03 17:57] LABS: Lactic Acid, Venous 1.8 mmol/L (0.7-2.0)
[2017-11-03 17:58] LABS: Basophils # (A) 0.1 k/uL (0-0.2); Basophils % (A) 1 %; Eosinophils # (A) 0.1 k/uL (0-0.7); Eosinophils % (A) 1 %; HCT 33.7 % (39.0-53.0); HGB 9.7 gm/dL (13.0-17.5); Hypochromasia Marked; Lymphocytes # (A) 1.8 k/uL (1.0-4.8); Lymphocytes % (A) 25 %; MCH 25.1 pg (25.0-35.0); MCHC 28.7 g/dL (31.0-37.0); MCV 87.6 fL (80.0-100.0); Mean Platelet Volume 8.6; Monocytes # (A) 0.6 k/uL (0-1.0); Monocytes % (A) 8 %; Neutrophils # (A) 4.4 k/uL (1.3-7.7); Neutrophils % (A) 62 %; Platelet Count 388 k/uL (150-450); Poikilocytosis Moderate; RBC 3.85 m/uL (4.30-5.90); RDW 15.9 % (11.5-15.5); WBC 7.1 k/uL (3.8-10.6)
[2017-11-03 18:01] LABS: ALT 71 U/L (21-72); AST 170 U/L (17-59); Alkaline Phosphatase 691 U/L (38-126); Amylase 52 U/L (30-110); Anion Gap 16 mmol/L; Blood Urea Nitrogen 14 mg/dL (9-20); Calcium 8.6 mg/dL (8.4-10.2); Carbon Dioxide 18 mmol/L (22-30); Chloride 109 mmol/L (98-107); Glucose 98 mg/dL (74-99); Lipase 216 U/L (23-300); Magnesium 1.7 mg/dL (1.6-2.3); Phosphorus 3.1 mg/dL (2.5-4.5); Potassium 4.1 mmol/L (3.5-5.1); Sodium 143 mmol/L (137-145); Total Bilirubin 3.6 mg/dL (0.2-1.3)
--- NOTE | 2017-11-03 18:08 | XR ---
EXAMINATION TYPE: XR chest 2V DATE OF EXAM: 11/03/2017 COMPARISON: 10/14/2017 HISTORY: Abdominal pain and cough TECHNIQUE: Frontal and lateral views of the chest are obtained. FINDINGS: Heart and mediastinum are normal. There is some linear density at the right lung base and left midlung consistent with atelectasis. The bony thorax is intact. I see no definite pleural effusi on. IMPRESSION: Bilateral pleural reaction and atelectasis that is unchanged compared to last exam. Marcella l heart.
[2017-11-03 20:19] LABS: Appearance,Urine Clear (Clear); Bilirubin,Urine 1+ (Negative); Blood,Urine Negative (Negative); Color,Urine Dark Yellow; Glucose,Urine (UA) Negative (Negative); Ketones,Urine 1+ (Negative); Leukocyte Esterase,Urine Negative (Negative); Nitrite,Urine Negative (Negative); PH, Urine 5.5 (5.0-8.0); Protein,Urine Trace (Negative); Specific Gravity,Urine 1.022 (1.001-1.035)
[2017-11-03 20:37] LABS: INR 1.2 (<1.2); Partial Thromboplastin Time 23.1 sec (22.0-30.0); Prothrombin Time 11.1 sec (9.0-12.0)
[2017-11-03] MEDS ORDERED: HYDROcodone/APAP 5-325MG 1 EACH TAB PO STA (20:42)
[2017-11-03 21:01] VITALS: BP 146/75; PULSE 78; TEMP 98.7
== END 2017-11-03 20:50 | disposition home or self-care (01) ==
LOC: EC 16:23
DX: R18.8 Other ascites (principal); K74.60 Unspecified cirrhosis of liver; R16.0 Hepatomegaly, not elsewhere classified; C22.9 Malignant neoplasm of liver, not specified as primary or secondary; K21.9 Gastro-esophageal reflux disease without esophagitis; F41.9 Anxiety disorder, unspecified; F17.200 Nicotine dependence, unspecified, uncomplicated; Z90.49 Acquired absence of other specified parts of digestive tract; Z79.51 Long term (current) use of inhaled steroids; Z79.899 Other long term (current) drug therapy
CPT/HCPCS: 36415; 71046; 80053; 81003; 82140; 82150; 83605; 83690; 83735; 84100; 85025; 85610; 85730; 99284

== ENCOUNTER 2017-11-05 08:49 | Day surgery (SDC) | payer OTHER ==
[2017-11-05 09:35] VITALS: TEMP 97.6
[2017-11-05 09:40] LABS: Mean Platelet Volume 9.1; Platelet Count 428 k/uL (150-450)
[2017-11-05 10:19] LABS: INR 1.2 (<1.2); Prothrombin Time 11.4 sec (9.0-12.0)
[2017-11-05 11:03] VITALS: RESP 16
--- NOTE | 2017-11-05 11:31 | US ---
Therapeutic paracentesis. DATE OF EXAM: 11/05/2017 CLINICAL HISTORY: Ascites The procedure was discussed with the patient. The risks, complications, benefits, and alternatives we re discussed and any questions were answered. Informed consent was obtained. The patient was placed s upine on the ultrasound table and prepped and draped in the usual sterile fashion. All elements of maximal barrier technique were utilized. Under ultrasound guidance, access into the right lower quadrant was obtained, via the paracentesis catheter system and direct ultrasound guidanc e. Approximately 4.3 liters of straw-colored fluid was removed. The patient was stable throughout the pr ocedure and remained stable upon discharge from Department of Radiology. IMPRESSION: Successful therapeutic paracentesis under ultrasound guidance.
[2017-11-05 11:40] VITALS: BP 145/84; PULSE 92
== END 2017-11-05 12:30 ==
LOC: RADPROMAIN 08:49
PROVIDERS: ATTEND Emergency Medicine
DX: R18.8 Other ascites (principal); C22.8 Malignant neoplasm of liver, primary, unspecified as to type
CPT/HCPCS: 49083; 82565; 85049; 85610

== ENCOUNTER 2017-11-05 12:29 | Emergency (ER) | payer OTHER ==
[2017-11-05 13:30] LABS: Basophils # (A) 0.1 k/uL (0-0.2); Basophils % (A) 1 %; Eosinophils # (A) 0.1 k/uL (0-0.7); Eosinophils % (A) 1 %; HCT 30.2 % (39.0-53.0); HGB 8.6 gm/dL (13.0-17.5); Hypochromasia Marked; Lymphocytes # (A) 1.3 k/uL (1.0-4.8); Lymphocytes % (A) 16 %; MCH 24.6 pg (25.0-35.0); MCHC 28.5 g/dL (31.0-37.0); MCV 86.3 fL (80.0-100.0); Mean Platelet Volume 7.2; Monocytes # (A) 0.5 k/uL (0-1.0); Monocytes % (A) 6 %; Neutrophils # (A) 6.3 k/uL (1.3-7.7); Neutrophils % (A) 74 %; Platelet Count 322 k/uL (150-450); Poikilocytosis Moderate; RDW 15.9 % (11.5-15.5); WBC 8.5 k/uL (3.8-10.6)
--- NOTE | 2017-11-05 13:37 | XR ---
EXAMINATION TYPE: XR KUB DATE OF EXAM: 11/05/2017 COMPARISON: NONE INDICATION: Abdominal pain TECHNIQUE: Single view abdomen FINDINGS: Nonspecific bowel gas is present. Air-fluid levels appear to be within small bowel loops. Minimal col onic bowel gas is present. No suspicious differential air-fluid levels are present. No free air is ev ident. Psoas margins are normal. No organomegaly is present. IMPRESSION: 1. Nonspecific abdomen.
[2017-11-05 13:41] LABS: ALT 100 U/L (21-72); AST 264 U/L (17-59); Albumin 2.6 g/dL (3.5-5.0); Alkaline Phosphatase 613 U/L (38-126); Amylase 39 U/L (30-110); Anion Gap 11 mmol/L; Blood Urea Nitrogen 16 mg/dL (9-20); Calcium 8.2 mg/dL (8.4-10.2); Carbon Dioxide 19 mmol/L (22-30); Chloride 113 mmol/L (98-107); Glucose 117 mg/dL (74-99); Lipase 190 U/L (23-300); Sodium 143 mmol/L (137-145); Total Bilirubin 3.2 mg/dL (0.2-1.3); Total Protein 6.2 g/dL (6.3-8.2)
[2017-11-05] MEDS ORDERED: MORPHINE SULFATE 4MG/4ML SYRG IVP STA (13:45)
--- NOTE | 2017-11-05 14:02 | ED ---
Abdominal Pain HPI - General Chief Complaint: Abdominal Pain Stated Complaint: Abd pain Time Seen by Provider: 11/05/17 12:51 Source: patient, RN notes reviewed Mode of arrival: wheelchair Limitations: no limitations - History of Present Illness Initial Comments: 57-year-old male presents emergency Department chief complaint of abdominal pain , low back and leg pain. Patient states his ongoing issues getting worse. Patient states he does not have any current pain medication. Patient had paracentesis morning. He states he does have some soreness associated with this. Patient is scheduled see oncologist for recent liver mass the recanting diagnosis. Patient denies any nausea vomiting diarrhea constipation. Denies any chest pain or shortness breath. Denies any bowel bladder incontinence or retention. - Related Data Home Medications Medication Instructions Recorded Confirmed Beclomethasone Dipropionate [Qvar 1 puff INHALATION RT-BID 10/08/17 11/05/17 80 mcg] Albuterol Inhaler [Ventolin Hfa 2 puff INHALATION RT-Q6H PRN 10/28/17 11/05/17 Inhaler] Folic Acid [Folic Acid] 1 mg PO DAILY 10/28/17 11/05/17 Naproxen [Naproxen] 500 mg PO BID PRN 10/28/17 11/05/17 Omeprazole [Omeprazole] 40 mg PO DAILY 10/28/17 11/05/17 Thiamine HCl [Vitamin B-1] 100 mg PO DAILY 10/28/17 11/05/17 Furosemide [Lasix] 80 mg PO DAILY 11/05/17 11/05/17 Lactulose 10 gm PO DAILY PRN 11/05/17 11/05/17 Propranolol [Inderal] 10 mg PO TID 11/05/17 11/05/17 Spironolactone [Aldactone] 25 mg PO DAILY 11/05/17 11/05/17 Previous Rx's Medication Instructions Recorded Ondansetron Odt [Zofran ODT] 4 mg PO Q8HR PRN #20 tab 10/28/17 Allergies Allergy/AdvReac Type Severity Reaction Status Date / Time No Known Allergies Allergy Verified 11/05/17 13:45 Review of Systems ROS Statement: Those systems with pertinent positive or pertinent negative responses have been documented in the HPI. ROS Other: All systems not noted in ROS Statement are negative. Past Medical History Past Medical History: GERD/Reflux, Hypertension, Liver Disease, Pneumonia Additional Past Medical History / Comment(s): chronic back pain, cirrhosis, and liver cancer History of Any Multi-Drug Resistant Organisms: None Reported Past Surgical History: Adenoidectomy, Appendectomy, Cholecystectomy, Orthopedic Surgery, Tonsillectomy Additional Past Surgical History / Comment(s): ORIF broken left leg Past Anesthesia/Blood Transfusion Reactions: No Reported Reaction Past Psychological History: Anxiety, Depression Smoking Status: Current every day smoker Past Alcohol Use History: None Reported Past Drug Use History: None Reported - Past Family History Mother History Unknown: Yes Additional Family Medical History / Comment(s): [facility] General Exam Limitations: no limitations General appearance: alert, in no apparent distress Head exam: Present: atraumatic, normocephalic, normal inspection Eye exam: Present: normal appearance, PERRL, EOMI. Absent: scleral icterus, conjunctival injection, periorbital swelling ENT exam: Present: normal exam, normal oropharynx, mucous membranes moist Neck exam: Present: normal inspection, full ROM. Absent: tenderness, meningismus, lymphadenopathy Respiratory exam: Present: normal lung sounds bilaterally. Absent: respiratory distress, wheezes, rales, rhonchi, stridor Cardiovascular Exam: Present: regular rate, normal rhythm, normal heart sounds. Absent: systolic murmur, diastolic murmur, rubs, gallop, clicks GI/Abdominal exam: Present: soft, distended (Minimal), tenderness (Mild diffuse) , normal bowel sounds. Absent: guarding, rebound, rigid Back exam: Absent: CVA tenderness (R), CVA tenderness (L) Skin exam: Present: warm, dry, intact, normal color. Absent: rash Course Vital Signs 11/05/17 11/05/17 12:45 14:17 Temperature 98.2 F Pulse Rate 92 85 Respiratory 18 18 Rate Blood Pressure 122/75 128/71 O2 Sat by Pulse 98 96 Oximetry Medical Decision Making - Medical Decision Making 57-year-old male presents from for abdominal pain, back pain which is chronic in nature. No acute changes. Patient's labwork reviewed from prior there is some minor changes with no major abnormality's. Patient's bilirubin is improved. Patient did have paracentesis today. Patient will be discharged at this time is advised follow-up care physician for pain medication. Return parameters were discussed. - Lab Data Result diagrams: 11/05/17 13:20 11/05/17 13:20 Lab Results 11/05/17 11/05/17 11/05/17 Range/Units 13:20 13:20 14:12 WBC 8.5 (3.8-10.6) k/uL RBC 3.50 L (4.30-5.90) m/uL Hgb 8.6 L (13.0-17.5) gm/dL Hct 30.2 L (39.0-53.0) % MCV 86.3 (80.0-100.0) fL MCH 24.6 L (25.0-35.0) pg MCHC 28.5 L (31.0-37.0) g/dL RDW 15.9 H (11.5-15.5) % Plt Count 322 (150-450) k/uL Neutrophils % 74 % Lymphocytes % 16 % Monocytes % 6 % Eosinophils % 1 % Basophils % 1 % Neutrophils # 6.3 (1.3-7.7) k/uL Lymphocytes # 1.3 (1.0-4.8) k/uL Monocytes # 0.5 (0-1.0) k/uL Eosinophils # 0.1 (0-0.7) k/uL Basophils # 0.1 (0-0.2) k/uL Hypochromasia Marked Poikilocytosis Moderate Sodium 143 (137-145) mmol/L Potassium 4.0 (3.5-5.1) mmol/L Chloride 113 H (98-107) mmol/L Carbon Dioxide 19 L (22-30) mmol/L Anion Gap 11 mmol/L BUN 16 (9-20) mg/dL Creatinine 0.64 L (0.66-1.25) mg/dL Est GFR (CKD-EPI)AfAm >90 (>60 ml/min/1.73 sqM) Est GFR (CKD-EPI)NonAf >90 (>60 ml/min/1.73 sqM) Glucose 117 H (74-99) mg/dL Calcium 8.2 L (8.4-10.2) mg/dL Total Bilirubin 3.2 H (0.2-1.3) mg/dL AST 264 H (17-59) U/L ALT 100 H (21-72) U/L Alkaline Phosphatase 613 H (38-126) U/L Total Protein 6.2 L (6.3-8.2) g/dL Albumin 2.6 L (3.5-5.0) g/dL Amylase 39 (30-110) U/L Lipase 190 (23-300) U/L Urine Color Dark Brown Urine Appearance Cloudy (Clear) Urine pH 6.0 (5.0-8.0) Ur Specific [place] 1.030 (1.001-1.035) Urine Protein 1+ H (Negative) Urine Glucose (UA) Negative (Negative) Urine Ketones Trace H (Negative) Urine Blood Negative (Negative) Urine Nitrite Negative (Negative) Urine Bilirubin 2+ H (Negative) Urine Urobilinogen 4.0 (<2.0) mg/dL Ur Leukocyte Esterase Negative (Negative) Urine WBC 3 (0-5) /hpf Ur Squamous Epith Cells <1 (0-4) /hpf Urine Bacteria Rare H (None) /hpf Urine Mucus Few H (None) /hpf Disposition Clinical Impression: Elevated liver enzymes, Chronic hepatitis C, Abdominal pain Disposition: HOME SELF-CARE Condition: Stable Instructions: Abdominal Pain (ED) Additional Instructions: Follow-up with your primary care doctor and oncologist for further pain medication.Please return to the Emergency Department if symptoms worsen or any other concerns. Referrals: Kandace Hamlin MD [Primary Care Provider] - 1-2 days Time of Disposition: 14:57
[2017-11-05 14:32] LABS: Appearance,Urine Cloudy (Clear); Bacteria,Urine Rare /hpf; Bilirubin,Urine 2+ (Negative); Blood,Urine Negative (Negative); Color,Urine Dark Brown; Glucose,Urine (UA) Negative (Negative); Ketones,Urine Trace (Negative); Leukocyte Esterase,Urine Negative (Negative); Mucus,Urine Few /hpf; Nitrite,Urine Negative (Negative); Protein,Urine 1+ (Negative); Squamous Epithelial Cell,Urine <1 /hpf (0-4); WBC,Urine 3 /hpf (0-5)
[2017-11-05 15:13] VITALS: BP 122/78; PULSE 81; RESP 16; TEMP 98.6
== END 2017-11-05 15:18 | disposition home or self-care (01) ==
LOC: EC 12:29
DX: B18.2 Chronic viral hepatitis C (principal); R14.0 Abdominal distension (gaseous); R10.9 Unspecified abdominal pain; M54.5 Low back pain; G89.29 Other chronic pain; M79.606 Pain in leg, unspecified; K21.9 Gastro-esophageal reflux disease without esophagitis; I10 Essential (primary) hypertension; F17.200 Nicotine dependence, unspecified, uncomplicated; Z79.51 Long term (current) use of inhaled steroids; Z79.899 Other long term (current) drug therapy; Z90.49 Acquired absence of other specified parts of digestive tract
CPT/HCPCS: 36415; 80053; 82150; 83690; 85025; 81001; 74018; 99284; 96374; J2270

== ENCOUNTER 2017-11-06 11:42 | Emergency (ER) | payer OTHER ==
[2017-11-06] MEDS ORDERED: ONDANSETRON 4 MG/2 ML VIAL IVP STA (12:27)
[2017-11-06] MEDS ORDERED: MORPHINE SULFATE 4MG/4ML SYRG IVP STA (12:27)
[2017-11-06 14:44] LABS: ALT 93 U/L (21-72); AST 231 U/L (17-59); Albumin 2.6 g/dL (3.5-5.0); Alkaline Phosphatase 571 U/L (38-126); Amylase 43 U/L (30-110); Anion Gap 11 mmol/L; Blood Urea Nitrogen 15 mg/dL (9-20); Calcium 8.3 mg/dL (8.4-10.2); Carbon Dioxide 21 mmol/L (22-30); Chloride 111 mmol/L (98-107); Glucose 93 mg/dL (74-99); Lipase 155 U/L (23-300); Sodium 143 mmol/L (137-145); Total Bilirubin 3.6 mg/dL (0.2-1.3); Total Protein 6.4 g/dL (6.3-8.2)
[2017-11-06 14:48] LABS: Potassium 4.7 mmol/L (3.5-5.1)
--- NOTE | 2017-11-06 14:48 | ED ---
General Adult HPI - General Chief complaint: Recheck/Abnormal Lab/Rx Stated complaint: Trouble walking, abd pain Time Seen by Provider: 11/06/17 12:18 Source: patient Mode of arrival: wheelchair Limitations: no limitations - History of Present Illness Initial comments: 57 years old male with a history of gastroesophageal reflux disease, hypertension, liver disease he had the paracentesis done yesterday is complaining about the right hip pain and pain in his abdomen denies any headaches no neck stiffness no fever no chills also complaining about some discomfort in the suprapubic area he said the pain is chronic it got worse he denies any trauma no fall no car accidents. System is unremarkable otherwise - Related Data Home Medications Medication Instructions Recorded Confirmed Beclomethasone Dipropionate [Qvar 1 puff INHALATION RT-BID 10/08/17 11/06/17 80 mcg] Albuterol Inhaler [Ventolin Hfa 2 puff INHALATION RT-Q6H PRN 10/28/17 11/06/17 Inhaler] Folic Acid [Folic Acid] 1 mg PO DAILY 10/28/17 11/06/17 Naproxen [Naproxen] 500 mg PO BID PRN 10/28/17 11/06/17 Omeprazole [Omeprazole] 40 mg PO DAILY 10/28/17 11/06/17 Thiamine HCl [Vitamin B-1] 100 mg PO DAILY 10/28/17 11/06/17 Furosemide [Lasix] 80 mg PO DAILY 11/05/17 11/06/17 Lactulose 10 gm PO DAILY PRN 11/05/17 11/06/17 Propranolol [Inderal] 10 mg PO TID 11/05/17 11/06/17 Spironolactone [Aldactone] 25 mg PO DAILY 11/05/17 11/06/17 Previous Rx's Medication Instructions Recorded Ondansetron Odt [Zofran ODT] 4 mg PO Q8HR PRN #20 tab 10/28/17 Hydrocodone/Acetaminophen [[place] 1 tab PO Q6HR PRN #10 tab 11/06/17 7.5-325] Allergies Allergy/AdvReac Type Severity Reaction Status Date / Time No Known Allergies Allergy Verified 11/06/17 12:15 Review of Systems ROS Statement: Those systems with pertinent positive or pertinent negative responses have been documented in the HPI. ROS Other: All systems not noted in ROS Statement are negative. Past Medical History Past Medical History: GERD/Reflux, Hypertension, Liver Disease, Pneumonia Additional Past Medical History / Comment(s): chronic back pain, cirrhosis, and liver cancer History of Any Multi-Drug Resistant Organisms: None Reported Past Surgical History: Adenoidectomy, Appendectomy, Cholecystectomy, Orthopedic Surgery, Tonsillectomy Additional Past Surgical History / Comment(s): ORIF broken left leg Past Anesthesia/Blood Transfusion Reactions: No Reported Reaction Past Psychological History: Anxiety, Depression Smoking Status: Current every day smoker Past Alcohol Use History: None Reported Past Drug Use History: None Reported - Past Family History Mother History Unknown: Yes Additional Family Medical History / Comment(s): [facility] General Exam - General Exam Comments Initial Comments: General: The patient is awake and alert, in no distress, and does not appear acutely ill. Skin: Skin is warm and dry and no rashes or lesions are noted. Eye: Pupils are equal, round and reactive to light, extra-ocular movements are intact; there is normal conjunctiva bilaterally. Ears, nose, mouth and throat: There are moist mucous membranes and no oral lesions. Neck: The neck is supple, there is no tenderness or JVD. Cardiovascular: There is a regular rate and rhythm. No murmur, rub or gallop is appreciated. Respiratory: To auscultation bilateral, no wheezing no rhonchi no distress respiratory jain noticed Gastrointestinal: Soft, non-distended, noticed a Band-Aid on the right side of the abdomen where he had is paracentesis done bowel sounds are positive minimal ascites noticed no guarding no rebounds no signs of peritonitis noticed. Back: There is no tenderness to palpation in the midline. There is no obvious deformity. Musculoskeletal: Normal ROM, no tenderness, There is no pedal edema. There is no calf tenderness or swelling. No cords were appreciated. Neurological: CN II-XII intact, Cranial nerves III through XII are intact. There are no obvious motor or sensory deficits. Coordination appears grossly intact. Speech is normal. Psychiatric: Cooperative, appropriate mood & affect, normal judgment. Limitations: no limitations Course Vital Signs 11/06/17 11/06/17 11/06/17 11:56 14:00 15:58 Temperature 97.3 F L 98.0 F 97.0 F L Pulse Rate 100 110 H 98 Respiratory 18 20 18 Rate Blood Pressure 127/66 130/65 144/66 O2 Sat by Pulse 100 98 98 Oximetry Labs are reviewed, they were compared with the labs with his previous visit to the ER, the look quite similar imaging showed some mild to moderate arthritis of the hip joints no free air noticed under the diaphragm patient be gone home on some pain meds to follow with his family doctor Medical Decision Making - Lab Data Result diagrams: 11/06/17 15:14 11/06/17 14:09 Lab Results 11/06/17 11/06/17 Range/Units 14:09 15:14 WBC 10.0 (3.8-10.6) k/uL RBC 3.48 L (4.30-5.90) m/uL Hgb 8.6 L (13.0-17.5) gm/dL Hct 30.7 L (39.0-53.0) % MCV 88.1 (80.0-100.0) fL MCH 24.8 L (25.0-35.0) pg MCHC 28.1 L (31.0-37.0) g/dL RDW 15.9 H (11.5-15.5) % Plt Count 324 (150-450) k/uL Sodium 143 (137-145) mmol/L Potassium 4.7 (3.5-5.1) mmol/L Chloride 111 H (98-107) mmol/L Carbon Dioxide 21 L (22-30) mmol/L Anion Gap 11 mmol/L BUN 15 (9-20) mg/dL Creatinine 0.61 L (0.66-1.25) mg/dL Est GFR (CKD-EPI)AfAm >90 (>60 ml/min/1.73 sqM) Est GFR (CKD-EPI)NonAf >90 (>60 ml/min/1.73 sqM) Glucose 93 (74-99) mg/dL Calcium 8.3 L (8.4-10.2) mg/dL Total Bilirubin 3.6 H (0.2-1.3) mg/dL AST 231 H (17-59) U/L ALT 93 H (21-72) U/L Alkaline Phosphatase 571 H (38-126) U/L Total Protein 6.4 (6.3-8.2) g/dL Albumin 2.6 L (3.5-5.0) g/dL Amylase 43 (30-110) U/L Lipase 155 (23-300) U/L Disposition Clinical Impression: Right hip pain, Liver disease Disposition: HOME SELF-CARE Condition: Good Instructions: Osteoarthritis (ED) Prescriptions: Hydrocodone/Acetaminophen [[place] 7.5-325] 1 tab PO Q6HR PRN #10 tab PRN Reason: Pain Referrals: Kandace Hamlin MD [Primary Care Provider] - 1-2 days
--- NOTE | 2017-11-06 15:23 | XR ---
EXAMINATION TYPE: Acute abdominal series DATE OF EXAM: 11/06/2017 COMPARISON: NONE HISTORY: 57-year-old male nausea and abdominal pain TECHNIQUE: 4 views FINDINGS: Frontal view of the chest shows low lung volumes with crowded vascular markings. Diffuse interstitial prominence. Bands of atelectasis left midlung and right base. No seun consolidation or significant pleural effusion. No evidence for free intraperitoneal air. Cholecystectomy clips. No dilated small bowel or air-fluid levels seen. Scattered air is seen extending distally to the rectum. Possible 7 mm left renal calculus versus vascular calcification. IMPRESSION: 1. Hypoventilatory changes with bands of atelectasis. Possible underlying bronchitis or asthma. 2. No evidence for free air or bowel obstruction.
--- NOTE | 2017-11-06 15:24 | XR ---
EXAMINATION TYPE: AP view pelvis and 2 views right hip DATE OF EXAM: 11/06/2017 COMPARISON: NONE HISTORY: 57-year-old male with right leg pain for 6 months when walking FINDINGS: There is mild degenerative change at both hips with prominent marginal spurring. No acute fracture, s ubluxation, or dislocation. IMPRESSION: Mild bilateral hip osteoarthrosis.
[2017-11-06 15:41] LABS: HCT 30.7 % (39.0-53.0); HGB 8.6 gm/dL (13.0-17.5); Hypochromasia Marked; MCH 24.8 pg (25.0-35.0); MCHC 28.1 g/dL (31.0-37.0); MCV 88.1 fL (80.0-100.0); Mean Platelet Volume 8.7; Platelet Count 324 k/uL (150-450); Poikilocytosis Slight; RBC 3.48 m/uL (4.30-5.90); RDW 15.9 % (11.5-15.5)
[2017-11-06] MEDS ORDERED: ONDANSETRON ODT 4 MG TAB PO STA (15:55)
[2017-11-06 16:04] LABS: Neutrophils % (M) 77 %; Nucleated Red Blood Cells 0 /100 WBC (0-0); Polychromasia Present; Total Cells Counted 100
[2017-11-06 16:34] VITALS: BP 139/80; PULSE 100; RESP 20; TEMP 97.8
== END 2017-11-06 16:33 | disposition home or self-care (01) ==
LOC: EC 11:42
DX: K76.9 Liver disease, unspecified (principal); M25.551 Pain in right hip; I10 Essential (primary) hypertension; K21.9 Gastro-esophageal reflux disease without esophagitis; F17.200 Nicotine dependence, unspecified, uncomplicated; Z85.05 Personal history of malignant neoplasm of liver; Z90.49 Acquired absence of other specified parts of digestive tract; Z79.51 Long term (current) use of inhaled steroids; Z79.899 Other long term (current) drug therapy
CPT/HCPCS: 36415; 73502; 74022; 80053; 82150; 83690; 85025; 99284

== ENCOUNTER 2017-11-10 15:14 | Inpatient (IN) | payer OTHER ==
[2017-11-10] MEDS ORDERED: ONDANSETRON 4 MG/2 ML VIAL IVP STA (15:28)
[2017-11-10] MEDS ORDERED: MORPHINE SULFATE 4MG/4ML SYRG IV STA (15:28)
[2017-11-10] MEDS ORDERED: PANTOPRAZOLE 40 MG/10 ML VIAL IVP STA (15:28)
[2017-11-10] MEDS ORDERED: RX INFO: IV CONTRAST WAS GIVEN 1 EACH MISC MISCELLANE PRN (15:28)
--- NOTE | 2017-11-10 15:40 | ED ---
Abdominal Pain HPI - General Chief Complaint: Abdominal Pain Stated Complaint: SOB AND ABDOMINAL PAIN Time Seen by Provider: 11/10/17 15:19 Source: EMS Mode of arrival: EMS Limitations: no limitations - History of Present Illness Initial Comments: This 57-year-old white male presents with multiple complaints. He complains of some diffuse abdominal pain worse on the right side. He also has abdominal distention. He has a history of liver cirrhosis for many years. He stopped drinking alcohol completely 7 years ago. He was diagnosed with liver cancer 3- 4 weeks ago at [facility]. He has not followed up with any treatment in regard to this cancer has of yet. He has an appointment with the boiler operators supervisor next month in the [facility] service [facility]/oncologist next week. He just had a paracentesis done approximately 4 days ago. He states that the abdominal pain is worse since having this procedure. He also complains of some lower extremity swelling. He has chronic bilateral hip pain due to arthritis and has been seen in the ER recently for this. He also complains of shortness of breath. He has had occasional right lateral chest pains which are nonpleuritic in nature over the past couple of days. He denies any history of DVT or PE. No other complaints or modifying factors. No fevers or chills. - Related Data Home Medications Medication Instructions Recorded Confirmed Beclomethasone Dipropionate [Qvar 1 puff INHALATION RT-BID 10/08/17 11/10/17 80 mcg] Albuterol Inhaler [Ventolin Hfa 2 puff INHALATION RT-Q6H PRN 10/28/17 11/10/17 Inhaler] Folic Acid [Folic Acid] 1 mg PO DAILY 10/28/17 11/10/17 Naproxen [Naproxen] 500 mg PO BID PRN 10/28/17 11/10/17 Omeprazole [Omeprazole] 40 mg PO DAILY 10/28/17 11/10/17 Thiamine HCl [Vitamin B-1] 100 mg PO DAILY 10/28/17 11/10/17 Furosemide [Lasix] 80 mg PO DAILY 11/05/17 11/10/17 Lactulose 10 gm PO DAILY PRN 11/05/17 11/10/17 Propranolol [Inderal] 10 mg PO TID 11/05/17 11/10/17 Spironolactone [Aldactone] 25 mg PO DAILY 11/05/17 11/10/17 Previous Rx's Medication Instructions Recorded Ondansetron Odt [Zofran ODT] 4 mg PO Q8HR PRN #20 tab 10/28/17 Hydrocodone/Acetaminophen [[place] 1 tab PO Q6HR PRN #10 tab 11/06/17 7.5-325] Allergies Allergy/AdvReac Type Severity Reaction Status Date / Time No Known Allergies Allergy Verified 11/10/17 16:17 Review of Systems ROS Statement: Those systems with pertinent positive or pertinent negative responses have been documented in the HPI. ROS Other: All systems not noted in ROS Statement are negative. Past Medical History Past Medical History: GERD/Reflux, Hypertension, Liver Disease, Pneumonia Additional Past Medical History / Comment(s): chronic back pain, cirrhosis, and liver cancer, Hepatitis C History of Any Multi-Drug Resistant Organisms: None Reported Past Surgical History: Adenoidectomy, Appendectomy, Cholecystectomy, Orthopedic Surgery, Tonsillectomy Additional Past Surgical History / Comment(s): ORIF broken left leg Past Anesthesia/Blood Transfusion Reactions: No Reported Reaction Past Psychological History: Anxiety, Depression Smoking Status: Current every day smoker Past Alcohol Use History: None Reported Past Drug Use History: None Reported - Past Family History Mother History Unknown: Yes Additional Family Medical History / Comment(s): [facility] General Exam - General Exam Comments Initial Comments: GENERAL: The patient is well nourished and well hydrated. VITAL SIGNS: Heart rate, blood pressure, respiratory rate reviewed as recorded in nurse's notes. EYES: Pupils are round and reactive. Extraocular movements are intact. No conjunctival / lid redness or swelling. ENT: No external evidence of injury, swelling, or ecchymosis. Airway is patent. Throat is clear. NECK: Nontender. No swelling or evidence of injury. No subcutaneous emphysema. Trachea is midline. No thyroid mass. HEART: Regular rate and rhythm. Good peripheral pulses. LUNGS/CHEST: Breath sounds clear and equal bilaterally. No rales, rhonchi, or wheezes. No ecchymosis, subcutaneous emphysema, or tenderness. ABDOMEN: The abdomen is slightly tender diffusely but it seems somewhat worse on the right side. There is mild distention. There is mild hepatomegaly. No peritoneal signs. No ecchymosis. EXTREMITIES: There is very scant edema noted to bilateral lower extremities. There is no calf tenderness. There is some mild tenderness in the bilateral hips. Normal muscle tone and function. No thoracolumbar tenderness. NEUROLOGIC: Sensation is grossly intact. Cranial nerve exam reveals face is symmetrical, tongue is midline, speech is clear. SKIN: No abrasions or ecchymosis is noted. No induration or masses noted. PSYCHIATRIC: Alert and oriented. Appropriate behavior and judgment. Limitations: no limitations Course Vital Signs 11/10/17 11/10/17 11/10/17 15:17 16:15 17:16 Temperature 98 F Pulse Rate 93 78 90 Respiratory 22 18 20 Rate Blood Pressure 130/78 142/78 133/69 O2 Sat by Pulse 96 98 96 Oximetry 11/10/17 18:17 Temperature Pulse Rate 98 Respiratory 18 Rate Blood Pressure 156/72 O2 Sat by Pulse 98 Oximetry Medical Decision Making - Medical Decision Making The patient was seen and examined. All diagnostics were reviewed. An IV is established and he does receive some morphine and Zofran intravenously. The laboratory came back showing a elevated d-dimer, decreased CO2, elevated liver function studies, and an anemia. The patient then had a computed tomography scan of the abdomen and pelvis was so show the abnormal liver consistent with malignancy. It also shows ascitic fluid which is unchanged. He also had a CTA of the chest and this does not show any evidence of pulmonary embolism but does show evidence of lymphadenopathy. There is some atelectasis noted as well. Overall, it is felt as though the patient would benefit from admission to the hospital. He is agreeable. The case is discussed with internal medicine and he is admitted for further treatment. In addition, the EKG shows a normal sinus rhythm at a rate of 84. There is no acute ST-T wave changes identified. The MS intervals 138, QRS duration is 96, and the QTC intervals 451. - Lab Data Result diagrams: 11/10/17 16:53 11/10/17 16:53 Lab Results 11/10/17 11/10/17 11/10/17 Range/Units 16:53 16:53 16:53 WBC 9.0 (3.8-10.6) k/uL RBC 4.01 L (4.30-5.90) m/uL Hgb 9.3 L (13.0-17.5) gm/dL Hct 34.9 L (39.0-53.0) % MCV 87.0 (80.0-100.0) fL MCH 23.3 L (25.0-35.0) pg MCHC 26.8 L (31.0-37.0) g/dL RDW 16.2 H (11.5-15.5) % Plt Count 332 (150-450) k/uL Neutrophils % (Manual) 70 % Band Neutrophils % 1 % Lymphocytes % (Manual) 18 % Monocytes % (Manual) 12 % Eosinophils % (Manual) 1 % Neutrophils # (Manual) 6.30 (1.3-7.7) k/uL Lymphocytes # (Manual) 1.62 (1.0-4.8) k/uL Monocytes # (Manual) 1.08 H (0-1.0) k/uL Eosinophils # (Manual) 0.09 (0-0.7) k/uL Nucleated RBCs 3 H (0-0) /100 WBC Manual Slide Review Performed Polychromasia Present Hypochromasia Marked Poikilocytosis Slight Anisocytosis Slight Spherocytes Present Target Cells Present PT 10.7 (9.0-12.0) sec INR 1.1 (<1.2) APTT 22.8 (22.0-30.0) sec D-Dimer 8.38 H (<0.60) mg/L FEU Sodium 143 (137-145) mmol/L Potassium 4.8 (3.5-5.1) mmol/L Chloride 109 H (98-107) mmol/L Carbon Dioxide 20 L (22-30) mmol/L Anion Gap 14 mmol/L BUN 13 (9-20) mg/dL Creatinine 0.60 L (0.66-1.25) mg/dL Est GFR (CKD-EPI)AfAm >90 (>60 ml/min/1.73 sqM) Est GFR (CKD-EPI)NonAf >90 (>60 ml/min/1.73 sqM) Glucose 92 (74-99) mg/dL Plasma Lactic Acid Nish (0.7-2.0) mmol/L Calcium 8.5 (8.4-10.2) mg/dL Total Bilirubin 2.8 H (0.2-1.3) mg/dL AST 209 H (17-59) U/L ALT 86 H (21-72) U/L Alkaline Phosphatase 642 H (38-126) U/L Total Creatine Kinase (55-170) U/L CK-MB (CK-2) (0.0-2.4) ng/mL CK-MB (CK-2) Rel Index Troponin I (0.000-0.034) ng/mL Total Protein 6.9 (6.3-8.2) g/dL Albumin 2.8 L (3.5-5.0) g/dL Amylase 51 (30-110) U/L Lipase 220 (23-300) U/L Urine Color Urine Appearance (Clear) Urine pH (5.0-8.0) Ur Specific [place] (1.001-1.035) Urine Protein (Negative) Urine Glucose (UA) (Negative) Urine Ketones (Negative) Urine Blood (Negative) Urine Nitrite (Negative) Urine Bilirubin (Negative) Urine Urobilinogen (<2.0) mg/dL Ur Leukocyte Esterase (Negative) 11/10/17 11/10/17 11/10/17 Range/Units 16:53 16:53 17:15 WBC (3.8-10.6) k/uL RBC (4.30-5.90) m/uL Hgb (13.0-17.5) gm/dL Hct (39.0-53.0) % MCV (80.0-100.0) fL MCH (25.0-35.0) pg MCHC (31.0-37.0) g/dL RDW (11.5-15.5) % Plt Count (150-450) k/uL Neutrophils % (Manual) % Band Neutrophils % % Lymphocytes % (Manual) % Monocytes % (Manual) % Eosinophils % (Manual) % Neutrophils # (Manual) (1.3-7.7) k/uL Lymphocytes # (Manual) (1.0-4.8) k/uL Monocytes # (Manual) (0-1.0) k/uL Eosinophils # (Manual) (0-0.7) k/uL Nucleated RBCs (0-0) /100 WBC Manual Slide Review Polychromasia Hypochromasia Poikilocytosis Anisocytosis Spherocytes Target Cells PT (9.0-12.0) sec INR (<1.2) APTT (22.0-30.0) sec D-Dimer (<0.60) mg/L FEU Sodium (137-145) mmol/L Potassium (3.5-5.1) mmol/L Chloride (98-107) mmol/L Carbon Dioxide (22-30) mmol/L Anion Gap mmol/L BUN (9-20) mg/dL Creatinine (0.66-1.25) mg/dL Est GFR (CKD-EPI)AfAm (>60 ml/min/1.73 sqM) Est GFR (CKD-EPI)NonAf (>60 ml/min/1.73 sqM) Glucose (74-99) mg/dL Plasma Lactic Acid Nish 2.0 (0.7-2.0) mmol/L Calcium (8.4-10.2) mg/dL Total Bilirubin (0.2-1.3) mg/dL AST (17-59) U/L ALT (21-72) U/L Alkaline Phosphatase (38-126) U/L Total Creatine Kinase 34 L (55-170) U/L CK-MB (CK-2) 0.7 (0.0-2.4) ng/mL CK-MB (CK-2) Rel Index 2.1 Troponin I <0.012 (0.000-0.034) ng/mL Total Protein (6.3-8.2) g/dL Albumin (3.5-5.0) g/dL Amylase (30-110) U/L Lipase (23-300) U/L Urine Color Dark Yellow Urine Appearance Clear (Clear) Urine pH 5.5 (5.0-8.0) Ur Specific [place] 1.028 (1.001-1.035) Urine Protein Trace H (Negative) Urine Glucose (UA) Negative (Negative) Urine Ketones Negative (Negative) Urine Blood Negative (Negative) Urine Nitrite Negative (Negative) Urine Bilirubin 1+ H (Negative) Urine Urobilinogen 4.0 (<2.0) mg/dL Ur Leukocyte Esterase Negative (Negative) Disposition Clinical Impression: Liver cirrhosis, Liver mass, Ascites, Chest pain, Dyspnea, Bilateral hip joint arthritis, Edema extremities, Anemia, Hypertension, Elevated LFTs, Elevated d- dimer Disposition: ADMITTED IP TO THIS [facility] Condition: Fair Time of Disposition: 19:53 Decision Date: 11/10/17 Decision Time: 19:53
[2017-11-10 17:07] LABS: ALT 86 U/L (21-72); AST 209 U/L (17-59); Albumin 2.8 g/dL (3.5-5.0); Alkaline Phosphatase 642 U/L (38-126); Amylase 51 U/L (30-110); Anion Gap 14 mmol/L; Blood Urea Nitrogen 13 mg/dL (9-20); Calcium 8.5 mg/dL (8.4-10.2); Carbon Dioxide 20 mmol/L (22-30); Chloride 109 mmol/L (98-107); Glucose 92 mg/dL (74-99); Lipase 220 U/L (23-300); Potassium 4.8 mmol/L (3.5-5.1); Sodium 143 mmol/L (137-145); Total Bilirubin 2.8 mg/dL (0.2-1.3); Total Protein 6.9 g/dL (6.3-8.2)
[2017-11-10 17:08] LABS: Anisocytosis Slight; HCT 34.9 % (39.0-53.0); HGB 9.3 gm/dL (13.0-17.5); Hypochromasia Marked; MCH 23.3 pg (25.0-35.0); MCHC 26.8 g/dL (31.0-37.0); Mean Platelet Volume 8.7; Platelet Count 332 k/uL (150-450); Poikilocytosis Slight; RBC 4.01 m/uL (4.30-5.90); RDW 16.2 % (11.5-15.5)
[2017-11-10 17:15] LABS: D-Dimer 8.38 mg/L FEU (<0.60); INR 1.1 (<1.2); Partial Thromboplastin Time 22.8 sec (22.0-30.0); Prothrombin Time 10.7 sec (9.0-12.0)
[2017-11-10 17:28] LABS: Band Neutrophils % 1 %; Eosinophils # (M) 0.09 k/uL (0-0.7); Lymphocytes # (M) 1.62 k/uL (1.0-4.8); Monocytes # (M) 1.08 k/uL (0-1.0); Neutrophils % (M) 70 %; Nucleated Red Blood Cells 3 /100 WBC (0-0); Total Cells Counted 200
[2017-11-10 17:29] LABS: Polychromasia Present; Target Cells Present
[2017-11-10 17:30] LABS: Spherocytes Present
[2017-11-10 17:31] LABS: Appearance,Urine Clear (Clear); Bilirubin,Urine 1+ (Negative); Blood,Urine Negative (Negative); Color,Urine Dark Yellow; Glucose,Urine (UA) Negative (Negative); Ketones,Urine Negative (Negative); Leukocyte Esterase,Urine Negative (Negative); Nitrite,Urine Negative (Negative); PH, Urine 5.5 (5.0-8.0); Protein,Urine Trace (Negative); Specific Gravity,Urine 1.028 (1.001-1.035)
[2017-11-10 17:34] LABS: Creatine Kinase 34 U/L (55-170)
[2017-11-10 17:46] LABS: Creatine Kinase MB 0.7 ng/mL (0.0-2.4); Troponin I <0.012 ng/mL (0.000-0.034)
--- NOTE | 2017-11-10 18:41 | CT ---
EXAMINATION TYPE: CT abdomen pelvis w con DATE OF EXAM: 11/10/2017 COMPARISON: 10/14/2017 HISTORY: Right sided pain post paracentesis. CT DLP: 1633.5 mGycm Automated exposure control for dose reduction was used. TECHNIQUE: Helical acquisition of images was performed from the lung bases through the pelvis. CONTRAST: Performed without Oral Contrast and with IV Contrast, patient injected with 100 mL of Isovue 370. FINDINGS: There is some linear infiltrate and atelectasis at the lung bases and more on the right side. There are numerous hypodense areas throughout the liver consistent with metastatic disease. There is ascites. Spleen is enlarged and measures 15 cm. I see no pancreatic mass. Bile ducts are not dilated. There are clips from cholecystectomy. There is no adrenal mass. Kidneys show satisfactory contrast opacification. There is no hydronephrosi s. Abdominal aorta is atheromatous. I see no intestinal wall thickening. There are no dilated loops. There is no sign of free air. IMPRESSION: THERE IS ASCITES FLUID SIMILAR TO LAST EXAM. ABNORMAL LIVER CONSISTENT WITH MALIGNANCY. SPLENOMEGALY. INFILTRATES AND ATELECTASIS AT THE LUNG BASES ARE THE SAME OR IMPROVED COMPARED TO OLD EXAM. NO FREE AIR.
--- NOTE | 2017-11-10 18:44 | CT ---
EXAMINATION TYPE: CT angio chest DATE OF EXAM: 11/10/2017 6:10 PM COMPARISON: NONE HISTORY: Right sided pain post paracentesis. CT DLP: 290.8 mGycm Automated exposure control for dose reduction was used. CONTRAST: CTA scan of the thorax is performed with IV Contrast, patient injected with 100 mL of Isovue 370, pul monary embolism protocol. There are 3-D post processed images.. FINDINGS: There is some patchy linear infiltrate and atelectasis at the lung bases and more on the right side. There is no pleural effusion. There is no pericardial effusion. Thoracic aorta is atheromatous. There is no evidence of aortic aneurysm or dissection. I see no filling defects in the pulmonary arteries. There are paratracheal and bronchial lymph nodes measure up to 1.5 cm. I see no bony destructive pro cess. IMPRESSION: NO EVIDENCE OF PULMONARY EMBOLISM. MILD MEDIASTINAL AND BRONCHIAL ADENOPATHY. MILD INFILTRATES AND AT ELECTASIS AT THE LUNG BASES. ASCITES FLUID NOTED.
[2017-11-10] MEDS ORDERED: ONDANSETRON 4 MG/2 ML VIAL IVP PRN (19:55)
[2017-11-10] MEDS ORDERED: NALOXONE 0.4 MG/ML 1 ML VIAL IV PRN (19:55)
[2017-11-10] MEDS ORDERED: FUROSEMIDE 10 MG/ML 10 ML VIAL IV STA (19:55)
[2017-11-10] MEDS ORDERED: LACTULOSE 200 GM/300 ML (FROM 1/2 GAL JUG) PO PRN (19:59)
[2017-11-10] MEDS ORDERED: NAPROXEN 250 MG TAB PO PRN (19:59)
[2017-11-10] MEDS ORDERED: HYDROcodone/APAP 7.5-325MG 1 EACH TAB PO PRN (19:59)
[2017-11-10] MEDS ORDERED: IPRATROPIUM-ALBUTEROL 3 ML NEB INHALATION SCH (20:00)
[2017-11-10] MEDS ORDERED: LACTULOSE 20 GM/30 ML CUP PO PRN (20:03)
[2017-11-10] MEDS: BUDESONIDE 1 MG/2 ML NEBU INHALATION SCH (20:52)
[2017-11-10] MEDS ORDERED: IPRATROPIUM-ALBUTEROL 3 ML NEB INHALATION PRN (20:54)
[2017-11-10] MEDS: MORPHINE SULFATE 4MG/4ML SYRG IV PRN (22:40)
[2017-11-10] MEDS: methylPREDNISolone SOD SUCCI 125 MG/2 ML VIAL IV SCH (22:49)
[2017-11-10] MEDS: PROPRANOLOL 10 MG TAB PO SCH (22:49)
[2017-11-11] MEDS: MORPHINE SULFATE 4MG/4ML SYRG IV PRN ×3 (02:33→10:32)
[2017-11-11 05:24] VITALS: BMI 29.5
[2017-11-11] MEDS: methylPREDNISolone SOD SUCCI 125 MG/2 ML VIAL IV SCH (08:40)
[2017-11-11] MEDS: PROPRANOLOL 10 MG TAB PO SCH ×3 (08:40→21:20)
[2017-11-11] MEDS: FUROSEMIDE 10 MG/ML 10 ML VIAL IV SCH ×2 (08:40→21:20)
[2017-11-11] MEDS: PANTOPRAZOLE 40 MG/10 ML VIAL IV SCH (08:41)
[2017-11-11] MEDS: THIAMINE 100 MG TAB PO SCH (08:41)
[2017-11-11] MEDS: SPIRONOLACTONE 25 MG TAB PO SCH (08:41)
[2017-11-11] MEDS ORDERED: ENOXAPARIN 40 MG/0.4 ML SYRINGE SQ SCH (09:00)
[2017-11-11] MEDS: BUDESONIDE 1 MG/2 ML NEBU INHALATION SCH ×2 (09:12→21:11)
[2017-11-11] MEDS: IPRATROPIUM-ALBUTEROL 3 ML NEB INHALATION SCH ×4 (09:12→21:10)
--- NOTE | 2017-11-11 10:09 | P.HPIM ---
History of Present Illness Patient with known history of alcoholic cirrhosis came in with abdominal pain diffuse about the 7/10 in severity sharp nonradiating. Along with the cough with ALLERGIC to greenish sputum production. His symptoms has been going on for last 3-4 days and the patient has a questionable diagnosis of cancer he doesn't know where it is and he doesn't know the primary his supposed to follow- up with oncology as an outpatient patient doesn't have any fevers. Patient was recently admitte [facility] unsure whether patient has portal vein thrombosis are not we're getting the information from [facility] at this point of time temporarily anti-ration will be held for paracentesis. Patient is also wheezing on exam does have COPD exacerbation CT is unclear whether patient has a pneumonia on the right lower lungs patient has mostly atelectasis there is some a bronchogram because of the abdominal pain tenderness and also possibility of releases of pneumonia patient was started on Rocephin. Patient is also complaining of for her diarrhea about 3-4 episodes a day even without lactulose. Review of Systems REVIEW OF SYSTEMS: CONSTITUTIONAL: No fever, no malaise, no fatigue. HEENT: No recent visual problems or hearing problems. Denied any sore throat. CARDIOVASCULAR: No chest pain, orthopnea, PND, no palpitations, no syncope. PULMONARY: As mentioned in HPI GASTROINTESTINAL: As mentioned in HPI NEUROLOGICAL: No headaches, no weakness, no numbness. HEMATOLOGICAL: Denies any bleeding or petechiae. GENITOURINARY: Denies any burning micturition, frequency, or urgency. MUSCULOSKELETAL/RHEUMATOLOGICAL: Denies any joint pain, swelling, or any muscle pain. ENDOCRINE: Denies any polyuria or polydipsia. The rest of the 14-point review of systems is negative. Past Medical History Past Medical History: GERD/Reflux, Hypertension, Liver Disease, Pneumonia Additional Past Medical History / Comment(s): chronic back pain, cirrhosis, and liver cancer, Hepatitis C History of Any Multi-Drug Resistant Organisms: None Reported Past Surgical History: Adenoidectomy, Appendectomy, Cholecystectomy, Orthopedic Surgery, Tonsillectomy Additional Past Surgical History / Comment(s): ORIF broken left leg Past Anesthesia/Blood Transfusion Reactions: No Reported Reaction Past Psychological History: Anxiety, Depression Smoking Status: Current every day smoker Past Alcohol Use History: None Reported Additional Past Alcohol Use History / Comment(s): 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", 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13 Past Drug Use History: None Reported 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 - Past Family History Mother History Unknown: Yes Additional Family Medical History / Comment(s): huntingtons Medications and Allergies Home Medications Medication Instructions Recorded Confirmed Type Beclomethasone Dipropionate [Qvar 1 puff INHALATION RT-BID 10/08/17 11/10/17 History 80 mcg] Albuterol Inhaler [Ventolin Hfa 2 puff INHALATION RT-Q6H PRN 10/28/17 11/10/17 History Inhaler] Folic Acid [Folic Acid] 1 mg PO DAILY 10/28/17 11/10/17 History Naproxen [Naproxen] 500 mg PO BID PRN 10/28/17 11/10/17 History Omeprazole [Omeprazole] 40 mg PO DAILY 10/28/17 11/10/17 History Ondansetron Odt [Zofran ODT] 4 mg PO Q8HR PRN #20 tab 10/28/17 11/10/17 Rx Thiamine HCl [Vitamin B-1] 100 mg PO DAILY 10/28/17 11/10/17 History Furosemide [Lasix] 80 mg PO DAILY 11/05/17 11/10/17 History Lactulose 10 gm PO DAILY PRN 11/05/17 11/10/17 History Propranolol [Inderal] 10 mg PO TID 11/05/17 11/10/17 History Spironolactone [Aldactone] 25 mg PO DAILY 11/05/17 11/10/17 History Hydrocodone/Acetaminophen [[place] 1 tab PO Q6HR PRN #10 tab 11/06/17 11/10/17 Rx 7.5-325] Allergies Allergy/AdvReac Type Severity Reaction Status Date / Time No Known Allergies Allergy Verified 11/10/17 16:17 Physical Exam Vitals: Vital Signs Temp Pulse Pulse Resp BP BP Pulse Ox 11/11/17 09:24 75 11/11/17 09:14 75 16 11/11/17 07:56 78 20 11/11/17 07:00 97.8 F 78 20 111/67 94 L 11/11/17 00:00 92 18 11/10/17 21:11 98.6 F 92 18 156/74 96 11/10/17 21:01 88 11/10/17 20:52 88 11/10/17 20:30 142/81 11/10/17 20:26 98.4 F 84 18 133/82 99 11/10/17 18:17 98 18 156/72 98 11/10/17 17:16 90 20 133/69 96 11/10/17 16:15 78 18 142/78 98 11/10/17 15:17 98 F 93 22 130/78 96 Intake and Output 11/10/17 11/11/17 11/11/17 22:59 06:59 14:59 Other: # Voids 1 2 Weight 83 kg PHYSICAL EXAMINATION: GENERAL: The patient is alert and oriented x3, not in any acute distress. Well developed, well nourished. HEENT: Pupils are round and equally reacting to light. EOMI. No scleral icterus. No conjunctival pallor. Normocephalic, atraumatic. No pharyngeal erythema. No thyromegaly. CARDIOVASCULAR: S1 and S2 present. No murmurs, rubs, or gallops. PULMONARY: Expiratory wheezing was appreciated right lower lung crackles were appreciated ABDOMEN: Only his abdominal tenderness was appreciated patient does have ascites and the shifting dullness. MUSCULOSKELETAL: No joint swelling or deformity. EXTREMITIES: No cyanosis, clubbing, or pedal edema. NEUROLOGICAL: Gross neurological examination did not reveal any focal deficits. SKIN: No rashes. Results CBC & Chem 7: 11/10/17 16:53 11/10/17 16:53 Labs: Abnormal Lab Results - Last 24 Hours (Table) 11/10/17 11/10/17 11/10/17 Range/Units 16:53 16:53 16:53 RBC 4.01 L (4.30-5.90) m/uL Hgb 9.3 L (13.0-17.5) gm/dL Hct 34.9 L (39.0-53.0) % MCH 23.3 L (25.0-35.0) pg MCHC 26.8 L (31.0-37.0) g/dL RDW 16.2 H (11.5-15.5) % Monocytes # (Manual) 1.08 H (0-1.0) k/uL Nucleated RBCs 3 H (0-0) /100 WBC D-Dimer 8.38 H (<0.60) mg/L FEU Chloride 109 H (98-107) mmol/L Carbon Dioxide 20 L (22-30) mmol/L Creatinine 0.60 L (0.66-1.25) mg/dL Total Bilirubin 2.8 H (0.2-1.3) mg/dL AST 209 H (17-59) U/L ALT 86 H (21-72) U/L Alkaline Phosphatase 642 H (38-126) U/L Total Creatine Kinase (55-170) U/L Albumin 2.8 L (3.5-5.0) g/dL Urine Protein (Negative) Urine Bilirubin (Negative) 11/10/17 11/10/17 Range/Units 16:53 17:15 RBC (4.30-5.90) m/uL Hgb (13.0-17.5) gm/dL Hct (39.0-53.0) % MCH (25.0-35.0) pg MCHC (31.0-37.0) g/dL RDW (11.5-15.5) % Monocytes # (Manual) (0-1.0) k/uL Nucleated RBCs (0-0) /100 WBC D-Dimer (<0.60) mg/L FEU Chloride (98-107) mmol/L Carbon Dioxide (22-30) mmol/L Creatinine (0.66-1.25) mg/dL Total Bilirubin (0.2-1.3) mg/dL AST (17-59) U/L ALT (21-72) U/L Alkaline Phosphatase (38-126) U/L Total Creatine Kinase 34 L (55-170) U/L Albumin (3.5-5.0) g/dL Urine Protein Trace H (Negative) Urine Bilirubin 1+ H (Negative) Thrombosis Risk Factor Assmnt - Choose All That Apply Any of the Below Risk Factors Present?: Yes Each Factor Represents 1 point: Age 41-60 years, Obesity (BMI >25), Swollen legs (current) Thrombosis Risk Factor Assessment Total Risk Factor Score: 3 Thrombosis Risk Factor Assessment Level: Moderate Risk Assessment and Plan Plan: -Cirrhosis ascites and Pott possible spontaneous bacterial peritonitis: Patient will undergo therapy can diagnostic paracentesis and patient was started on anti -medics for above-mentioned reasons and the patient will be continued on diuretic therapy. Although patient doesn't have any leukocytosis or fever at this time. -Possibility of early status of pneumonia patient will be continued on Rocephin as mentioned above -COPD with acute exacerbation patient's the steroids will be switched to oral patient will be continued on inhalational treatments. Aspirin cultures will be obtained -Alcoholic cirrhosis - hypertension -History of hepatitis C and possible hepatocellular carcinoma -Depression For above-mentioned chronic medical problems she'll be resumed on appropriate home medications.
--- NOTE | 2017-11-11 10:12 | P.CONS ---
History of Present Illness - Reason for Consult Consult date: 11/11/17 Liver cancer Requesting physician: Mansi Howe - History of Present Illness 57-year-old gentleman with recent multiple hospitalizations over the last several weeks secondary to acute upper GI bleeds. Past medical history of intracranial subarachnoid hemorrhage, hepatitis C with incomplete antiviral therapy 1998, intravenous heroin abuse last usage 6 months ago, EtOH abuse with underlying alcohol liver cirrhosis portal hypertension paracentesis and recent elevation of alpha-fetoprotein marker followed by recent nondiagnostic liver biopsy at [facility] a month ago. Patient underwent EGD evaluation for acute upper GI bleed several weeks ago at [facility] with performance of variceal banding. CT abdomen and pelvis as well as MRI imaging at that time reported a lobulated peripheral nodule contour liver, ascites as well as heterogeneous infiltrated type pattern involving the anterior liver in the right and left lobe, neoplastic process could not be excluded. Possible portal vein thrombosis. Alpha-fetoprotein marker at that time was 3831. He underwent ultrasound-guided core liver biopsy on 10/06/2017 reported no evidence of malignancy. He was recently hospitalized and [facility] a few weeks ago secondary to acute upper GI bleed but was transferred to [facility]. According to the patient he underwent another paracentesis a few days ago with 4 L removed as well as an EGD with variceal banding at [facility]. He was told by [facility] medical staff that he has liver cirrhosis but no additional imaging or biopsies were performed. He was advised to follow-up with director of guidance and oncologist within the next 1-2 weeks. He presents to the hospital this time with increased abdominal bloatedness lower leg edema generalized feeling of weakness without hematemesis hematochezia or melena. White count 9.0. Hemoglobin 9.3. Platelets 332. INR 1.1. D-dimer 8.3. Total bilirubin 2.8. AST 209. ALT 86. Alkaline phosphatase 642. BUN 13. Creatinine 0.6. Denies fever or chills. CT chest abdomen and pelvis without oral but with IV contrast reported no evidence of pulmonary embolism. Mild infiltrates and atelectasis at the lung bases. Ascites similar to previous exam. Abnormal liver consistent with malignancy. Splenomegaly. No free air. Review of Systems Constitutional: Denies fever, chills, sweats, weight gain, or loss. HEENT: History of intracranial subarachnoid hemorrhage. Negative for migraines , blurred vision or loss, earaches, drainage, tinnitus, oral mucosal lesions, dysphagia, or odynophagia. Cardiac: Negative for chest pain, arrhythmias, or palpitation. Respiratory: Negative for shortness of breath, hemoptysis, cough, or sputum production. Gastrointestinal: See HPI for pertinent findings. Genitourinary: Negative for hematuria, urgency, frequency, polyuria, dysuria, or penile discharge. Musculoskeletal: Negative for muscle aches, swelling, arthritis, and arthralgias. Neurologic: Negative for stroke or TIA. Endocrine: Negative for thyroid problems. Skin: Negative for rash or itching. Psychiatric: Negative history for depression and anxiety Past Medical History Past Medical History: GERD/Reflux, Hypertension, Liver Disease, Pneumonia Additional Past Medical History / Comment(s): chronic back pain, cirrhosis, and liver cancer, Hepatitis C History of Any Multi-Drug Resistant Organisms: None Reported Past Surgical History: Adenoidectomy, Appendectomy, Cholecystectomy, Orthopedic Surgery, Tonsillectomy Additional Past Surgical History / Comment(s): ORIF broken left leg Past Anesthesia/Blood Transfusion Reactions: No Reported Reaction Past Psychological History: Anxiety, Depression Smoking Status: Current every day smoker Past Alcohol Use History: None Reported Additional Past Alcohol Use History / Comment(s): 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", 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13 Past Drug Use History: None Reported 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 - Past Family History Mother History Unknown: Yes Additional Family Medical History / Comment(s): huntingtons Medications and Allergies Home Medications Medication Instructions Recorded Confirmed Type Beclomethasone Dipropionate [Qvar 1 puff INHALATION RT-BID 10/08/17 11/10/17 History 80 mcg] Albuterol Inhaler [Ventolin Hfa 2 puff INHALATION RT-Q6H PRN 10/28/17 11/10/17 History Inhaler] Folic Acid [Folic Acid] 1 mg PO DAILY 10/28/17 11/10/17 History Naproxen [Naproxen] 500 mg PO BID PRN 10/28/17 11/10/17 History Omeprazole [Omeprazole] 40 mg PO DAILY 10/28/17 11/10/17 History Ondansetron Odt [Zofran ODT] 4 mg PO Q8HR PRN #20 tab 10/28/17 11/10/17 Rx Thiamine HCl [Vitamin B-1] 100 mg PO DAILY 10/28/17 11/10/17 History Furosemide [Lasix] 80 mg PO DAILY 11/05/17 11/10/17 History Lactulose 10 gm PO DAILY PRN 11/05/17 11/10/17 History Propranolol [Inderal] 10 mg PO TID 11/05/17 11/10/17 History Spironolactone [Aldactone] 25 mg PO DAILY 11/05/17 11/10/17 History Hydrocodone/Acetaminophen [[place] 1 tab PO Q6HR PRN #10 tab 11/06/17 11/10/17 Rx 7.5-325] Allergies Allergy/AdvReac Type Severity Reaction Status Date / Time No Known Allergies Allergy Verified 11/10/17 16:17 Physical Exam Vitals: Vital Signs Temp Pulse Pulse Resp BP BP Pulse Ox 11/11/17 09:24 75 11/11/17 09:14 75 16 11/11/17 07:56 78 20 11/11/17 07:00 97.8 F 78 20 111/67 94 L 11/11/17 00:00 92 18 11/10/17 21:11 98.6 F 92 18 156/74 96 11/10/17 21:01 88 11/10/17 20:52 88 11/10/17 20:30 142/81 11/10/17 20:26 98.4 F 84 18 133/82 99 11/10/17 18:17 98 18 156/72 98 11/10/17 17:16 90 20 133/69 96 11/10/17 16:15 78 18 142/78 98 11/10/17 15:17 98 F 93 22 130/78 96 Intake and Output 11/10/17 11/11/17 11/11/17 22:59 06:59 14:59 Other: # Voids 1 2 Weight 83 kg General appearance: The patient is alert, oriented, in no acute distress. HET: Head is normocephalic and atraumatic. Pupils are equal and reactive. Oropharynx is clear without lesions. Neck: Supple without lymphadenopathy. Trachea midline. Heart: S1 S2. Regular rate and rhythm. Lungs: No crackles or wheezes are heard. Abdomen: Soft, distended with moderate ascites with bowel sounds. No peritoneal signs. No palpable organomegaly or masses. Extremities: +2 bilateral lower extremity edema. Radial and pedal pulses palpable. Neurological: No focal deficits. Strength and sensation are grossly intact. Results CBC & Chem 7: 18 16:53 11/10/17 16:53 Labs: Abnormal Lab Results - Last 24 Hours (Table) 11/10/1718 11/10/17 Range/Units 16:53 16:53 16:53 RBC 4.01 L (4.30-5.90) m/uL Hgb 9.3 L (13.0-17.5) gm/dL Hct 34.9 L (39.0-53.0) % MCH 23.3 L (25.0-35.0) pg MCHC 26.8 L (31.0-37.0) g/dL RDW 16.2 H (11.5-15.5) % Monocytes # (Manual) 1.08 H (0-1.0) k/uL Nucleated RBCs 3 H (0-0) /100 WBC D-Dimer 8.38 H (<0.60) mg/L FEU Chloride 109 H (98-107) mmol/L Carbon Dioxide 20 L (22-30) mmol/L Creatinine 0.60 L (0.66-1.25) mg/dL Total Bilirubin 2.8 H (0.2-1.3) mg/dL AST 209 H (17-59) U/L ALT 86 H (21-72) U/L Alkaline Phosphatase 642 H (38-126) U/L Total Creatine Kinase (55-170) U/L Albumin 2.8 L (3.5-5.0) g/dL Urine Protein (Negative) Urine Bilirubin (Negative) 18 11/10/17 Range/Units 16:53 17:15 RBC (4.30-5.90) m/uL Hgb (13.0-17.5) gm/dL Hct (39.0-53.0) % MCH (25.0-35.0) pg MCHC (31.0-37.0) g/dL RDW (11.5-15.5) % Monocytes # (Manual) (0-1.0) k/uL Nucleated RBCs (0-0) /100 WBC D-Dimer (<0.60) mg/L FEU Chloride (98-107) mmol/L Carbon Dioxide (22-30) mmol/L Creatinine (0.66-1.25) mg/dL Total Bilirubin (0.2-1.3) mg/dL AST (17-59) U/L ALT (21-72) U/L Alkaline Phosphatase (38-126) U/L Total Creatine Kinase 34 L (55-170) U/L Albumin (3.5-5.0) g/dL Urine Protein Trace H (Negative) Urine Bilirubin 1+ H (Negative) CT scan - abdomen: report reviewed (Dr. Anaya) CT scan - chest: report reviewed (Dr. Anaya) Assessment and Plan (1) Ascites Narrative/Plan: 57-year-old gentleman admitted with recurrent ascites lower leg edema elevated d -dimer with a history of alcohol liver disease cirrhosis chronic hepatitis C with recent hospitalizations for acute upper GI bleed secondary to esophageal varices status post banding as well as abnormal abdominal imaging suggestive of underlying liver mass malignancy with elevated alpha-fetoprotein marker and recent nondiagnostic liver biopsy. Current Visit: Yes Status: Acute Code(s): R18.8 - OTHER ASCITES SNOMED Code(s): 361583003 (2) Elevated alpha fetoprotein Current Visit: Yes Status: Acute Code(s): R77.2 - ABNORMALITY OF ALPHAFETOPROTEIN SNOMED Code(s): 962248467 (3) Elevated d-dimer Current Visit: Yes Status: Acute Code(s): R79.89 - OTHER SPECIFIED ABNORMAL FINDINGS OF BLOOD CHEMISTRY SNOMED Code(s): 922763207 (4) Chronic hepatitis C Current Visit: No Status: Acute Code(s): B18.2 - CHRONIC VIRAL HEPATITIS C SNOMED Code(s): 239523410 (5) Depression Current Visit: No Status: Acute Code(s): F32.9 - MAJOR DEPRESSIVE DISORDER, SINGLE EPISODE, UNSPECIFIED SNOMED Code(s): 07639809 (6) Elevated liver enzymes Current Visit: No Status: Acute Code(s): R74.8 - ABNORMAL LEVELS OF OTHER SERUM ENZYMES SNOMED Code(s): 382332504 (7) H/O ETOH abuse Current Visit: No Status: Acute Code(s): Z87.898 - PERSONAL HISTORY OF OTHER SPECIFIED CONDITIONS SNOMED Code(s): 682014558 (8) Heroin abuse Current Visit: No Status: Acute Code(s): F11.10 - OPIOID ABUSE, UNCOMPLICATED SNOMED Code(s): 0044178 (9) History of esophageal varices with bleeding Current Visit: No Status: Acute Code(s): Z87.19 - PERSONAL HISTORY OF OTHER DISEASES OF THE DIGESTIVE SYSTEM SNOMED Code(s): 153169586 (10) Portal hypertension Current Visit: No Status: Acute Code(s): K76.6 - PORTAL HYPERTENSION SNOMED Code(s): 25873540 Plan: 1. Therapeutic paracentesis tomorrow patient received Lovenox today; presently on hold. 2. Oncology consultation evaluation for liver cancer questionable possible portal vein thrombosis. [facility] records from recent hospitalization were requested to be placed on chart for review. 3. AFP marker. 4. Low-salt diet. 5. Social work consult. 6. Protonix 40 mg IV daily. Thank you for this kind referral and the opportunity to participate in the care of your patient. This consultation was discussed with Dr. Anaya. The impression and plan of care have been directed as dictated.
[2017-11-11] MEDS: cefTRIAXone IN SWFI 1,000 MG/10 ML SYRINGE IVP SCH (13:11)
[2017-11-11] MEDS: FOLIC ACID 1 MG TAB PO SCH (13:14)
[2017-11-11] MEDS: MORPHINE ORAL SOLN 10 MG/5 ML CUP PO PRN ×3 (15:07→23:19)
--- NOTE | 2017-11-11 19:10 | P.CONS ---
History of Present Illness - Reason for Consult Consult date: 11/11/17 ?Liver Cancer Requesting physician: Jeffery Collado - Chief Complaint Pain abd diarrhea - History of Present Illness Mr. Hernandez is a patient seen previously at [facility] for concern of malignancy in the liver. He has a known history of alcoholic Cirrhosis, COPD, recent liver biopsy, and paracentesis. He presents to [facility] with progressive pain in his abdomen that he describes as sharp and persistent. He also has a productive green sputum cough. On his last admission a biopsy of the liver failed to show diagnosis of cancer, he was transferred to [facility] where further work-up was completed. Per the patient he understands they did find a positive diagnosis of liver cancer, although at this time we are awaiting these records. He has been started on IV abx at this time for treatment of probable COPD exacerbation. He complains of diarrhea in additional to the progressively worse abdominal pain. Review of Systems A 14 point review of systems assessed and completed and all negative except HPI Past Medical History Past Medical History: GERD/Reflux, Hypertension, Liver Disease, Pneumonia Additional Past Medical History / Comment(s): chronic back pain, cirrhosis, and liver cancer, Hepatitis C History of Any Multi-Drug Resistant Organisms: None Reported Past Surgical History: Adenoidectomy, Appendectomy, Cholecystectomy, Orthopedic Surgery, Tonsillectomy Additional Past Surgical History / Comment(s): ORIF broken left leg Past Anesthesia/Blood Transfusion Reactions: No Reported Reaction Past Psychological History: Anxiety, Depression Smoking Status: Current every day smoker Past Alcohol Use History: None Reported Additional Past Alcohol Use History / Comment(s): 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", 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13 Past Drug Use History: None Reported 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 - Past Family History Mother History Unknown: Yes Additional Family Medical History / Comment(s): huntingtons Medications and Allergies Home Medications Medication Instructions Recorded Confirmed Type Beclomethasone Dipropionate [Qvar 1 puff INHALATION RT-BID 10/08/17 11/10/17 History 80 mcg] Albuterol Inhaler [Ventolin Hfa 2 puff INHALATION RT-Q6H PRN 10/28/17 11/10/17 History Inhaler] Folic Acid [Folic Acid] 1 mg PO DAILY 10/28/17 11/10/17 History Naproxen [Naproxen] 500 mg PO BID PRN 10/28/17 11/10/17 History Omeprazole [Omeprazole] 40 mg PO DAILY 10/28/17 11/10/17 History Ondansetron Odt [Zofran ODT] 4 mg PO Q8HR PRN #20 tab 10/28/17 11/10/17 Rx Thiamine HCl [Vitamin B-1] 100 mg PO DAILY 10/28/17 11/10/17 History Furosemide [Lasix] 80 mg PO DAILY 11/05/17 11/10/17 History Lactulose 10 gm PO DAILY PRN 11/05/17 11/10/17 History Propranolol [Inderal] 10 mg PO TID 11/05/17 11/10/17 History Spironolactone [Aldactone] 25 mg PO DAILY 11/05/17 11/10/17 History Hydrocodone/Acetaminophen [Ridgely 1 tab PO Q6HR PRN #10 tab 11/06/17 11/10/17 Rx 7.5-325] Allergies Allergy/AdvReac Type Severity Reaction Status Date / Time No Known Allergies Allergy Verified 11/10/17 16:17 Physical Exam Vitals: Vital Signs Temp Pulse Pulse Resp BP BP Pulse Ox 11/11/17 12:41 78 11/11/17 12:30 80 11/11/17 09:24 75 11/11/17 09:14 75 16 11/11/17 07:56 78 20 11/11/17 07:00 97.8 F 78 20 111/67 94 L 11/11/17 00:00 92 18 11/10/17 21:11 98.6 F 92 18 156/74 96 11/10/17 21:01 88 11/10/17 20:52 88 11/10/17 20:30 142/81 11/10/17 20:26 98.4 F 84 18 133/82 99 11/10/17 18:17 98 18 156/72 98 11/10/17 17:16 90 20 133/69 96 11/10/17 16:15 78 18 142/78 98 11/10/17 15:17 98 F 93 22 130/78 96 Intake and Output 11/10/17 11/11/17 11/11/17 22:59 06:59 14:59 Intake Total 400 Balance 400 Intake: Oral 400 Other: # Voids 1 2 Weight 83 kg - Constitutional General appearance: cooperative, mild distress, thin - EENT Eyes: EOMI, poor dentition ENT: NA/AT, normal oropharynx - Neck Neck: normal ROM - Respiratory Respiratory: bilateral: diminished (bilateral lower lobes) - Cardiovascular Rhythm: regular Heart sounds: normal: S1, S2 - Gastrointestinal General gastrointestinal: distended, tenderness - Integumentary Integumentary: pale - Neurologic Neurologic: CNII-XII intact - Musculoskeletal Musculoskeletal: generalized weakness - Psychiatric Psychiatric: A&O x's 3, appropriate affect Results CBC & Chem 7: 11/10/17 16:53 11/10/17 16:53 Labs: Abnormal Lab Results - Last 24 Hours (Table) 11/10/17 11/10/17 11/10/17 Range/Units 16:53 16:53 16:53 RBC 4.01 L (4.30-5.90) m/uL Hgb 9.3 L (13.0-17.5) gm/dL Hct 34.9 L (39.0-53.0) % MCH 23.3 L (25.0-35.0) pg MCHC 26.8 L (31.0-37.0) g/dL RDW 16.2 H (11.5-15.5) % Monocytes # (Manual) 1.08 H (0-1.0) k/uL Nucleated RBCs 3 H (0-0) /100 WBC D-Dimer 8.38 H (<0.60) mg/L FEU Chloride 109 H (98-107) mmol/L Carbon Dioxide 20 L (22-30) mmol/L Creatinine 0.60 L (0.66-1.25) mg/dL Total Bilirubin 2.8 H (0.2-1.3) mg/dL AST 209 H (17-59) U/L ALT 86 H (21-72) U/L Alkaline Phosphatase 642 H (38-126) U/L Total Creatine Kinase (55-170) U/L Albumin 2.8 L (3.5-5.0) g/dL Urine Protein (Negative) Urine Bilirubin (Negative) 11/10/17 11/10/17 Range/Units 16:53 17:15 RBC (4.30-5.90) m/uL Hgb (13.0-17.5) gm/dL Hct (39.0-53.0) % MCH (25.0-35.0) pg MCHC (31.0-37.0) g/dL RDW (11.5-15.5) % Monocytes # (Manual) (0-1.0) k/uL Nucleated RBCs (0-0) /100 WBC D-Dimer (<0.60) mg/L FEU Chloride (98-107) mmol/L Carbon Dioxide (22-30) mmol/L Creatinine (0.66-1.25) mg/dL Total Bilirubin (0.2-1.3) mg/dL AST (17-59) U/L ALT (21-72) U/L Alkaline Phosphatase (38-126) U/L Total Creatine Kinase 34 L (55-170) U/L Albumin (3.5-5.0) g/dL Urine Protein Trace H (Negative) Urine Bilirubin 1+ H (Negative) Assessment and Plan (1) Edema extremities Current Visit: Yes Status: Acute Code(s): R60.0 - LOCALIZED EDEMA SNOMED Code(s): 911187535 (2) Liver mass Current Visit: Yes Status: Acute Code(s): R16.0 - HEPATOMEGALY, NOT ELSEWHERE CLASSIFIED SNOMED Code(s): 036134381 (3) Diarrhea Current Visit: No Status: Acute Code(s): R19.7 - DIARRHEA, UNSPECIFIED SNOMED Code(s): 33352872 (4) Elevated liver enzymes Current Visit: No Status: Acute Code(s): R74.8 - ABNORMAL LEVELS OF OTHER SERUM ENZYMES SNOMED Code(s): 278364475 (5) Heroin abuse Current Visit: No Status: Acute Code(s): F11.10 - OPIOID ABUSE, UNCOMPLICATED SNOMED Code(s): 5760885 (6) History of esophageal varices with bleeding Current Visit: No Status: Acute Code(s): Z87.19 - PERSONAL HISTORY OF OTHER DISEASES OF THE DIGESTIVE SYSTEM SNOMED Code(s): 883453730 (7) Liver disease Current Visit: No Status: Acute Code(s): K76.9 - LIVER DISEASE, UNSPECIFIED SNOMED Code(s): 029193969 (8) Portal hypertension Current Visit: No Status: Acute Code(s): K76.6 - PORTAL HYPERTENSION SNOMED Code(s): 26827267 (9) Portal vein thrombosis Current Visit: No Status: Acute Code(s): I81 - PORTAL VEIN THROMBOSIS SNOMED Code(s): 51629841 Plan: Assessment and Recommendations: 1. Liver mass - Previous Pathology failed to show evidence of Malignancy - Need to obtain recent diagnostics and pathology from [facility], unclear if a proven malignancy was identified at outside facility 2. Alcoholic Cirrhosis - - GI to follow - Monitor Liver Function - Supportive Paracentesis (obtain diagnostic fluid studies) 3. Anemia - Secondary number 2 - Monitor CBC - B12, MMA, Folate levels 4. Persistent worsening pain: - Pain service to consult - Bone Scan Ordered Physician Attestation: I have completed the full history and physical of this patient and discussed and agree with the above dictation from Lupe Muñiz DIRECTOR [employer], Dictated as a scribe.
[2017-11-12] MEDS: MORPHINE ORAL SOLN 10 MG/5 ML CUP PO PRN ×4 (03:24→19:17)
[2017-11-12 06:57] LABS: Mean Platelet Volume 8.5; Platelet Count 488 k/uL (150-450)
[2017-11-12 07:11] LABS: INR 1.2 (<1.2)
[2017-11-12 07:12] LABS: Partial Thromboplastin Time 22.5 sec (22.0-30.0); Prothrombin Time 11.1 sec (9.0-12.0)
[2017-11-12] MEDS: BUDESONIDE 1 MG/2 ML NEBU INHALATION SCH ×2 (08:09→20:15)
[2017-11-12] MEDS: IPRATROPIUM-ALBUTEROL 3 ML NEB INHALATION SCH ×4 (08:09→20:16)
--- NOTE | 2017-11-12 08:09 | P.CON ---
Consult Note - . Consult date: 11/12/17 Assessment/Plan:: Patient seen and examined at bedside, chart reviewed along with medical/surgical /family/social history and allergies. Mr. Hernandez is a 57-year-old male who has strong history of alcoholic liver cirrhosis for 15 years and (per patient) was recently diagnosed with liver CA at [facility] (although pathology is unavailable at this time). He also has a history of chronic back pain but is admitted specifically for abdominal pain. He has undergone two paracentesis procedures within the past several months. He has had short-term prescriptions (10 pills or less) from emergency rooms in the past 6-7 months per [facility]. These have lasted him approximately 2-3 weeks apiece. In the hospital, patient is currently on P[place] and oral morphine solution. While there is substantial risk of giving opioids long-term to any patient with any sort of substance disorder, be it alcohol or other recreational drugs, there is a need for pain control as well. The patient has not been receiving P[place] in the hospital so I will discontinue it and reduce the frequency of morphine to every 6 hours while patient is hospitalized. If OK with oncology service, would recommend discharging patient with morphine no more than once or twice per day as an outpatient, and patient will follow up with oncologists for further management depending on the prognosis of his cancer. I indicated the risks of opioids to the patient (particularly tolerance /addiction/respiratory depression/ given his history) and he verbalized understanding of these risks. Will sign off; please call back with any further questions or if patient's pain worsens to the point where he requires an intrathecal drug trial.
[2017-11-12] MEDS: SPIRONOLACTONE 25 MG TAB PO SCH (08:20)
[2017-11-12] MEDS: PROPRANOLOL 10 MG TAB PO SCH ×3 (08:20→20:46)
[2017-11-12] MEDS: THIAMINE 100 MG TAB PO SCH (08:20)
[2017-11-12] MEDS ORDERED: predniSONE 20 MG TAB PO SCH (09:00)
--- NOTE | 2017-11-12 11:06 | P.PN ---
Subjective Progress Note Date: 11/12/17 Principal diagnosis: Chronic hepatitis C cirrhosis Paracentesis not performed secondary to lack of ascitic fluid. Possible discharge today. Request for [facility] medical records still not received. Afebrile. Tolerating diet. AFP marker pending. Seen by oncology. Objective - Vital Signs Vital signs: Vital Signs Temp 97.6 F 11/12/17 07:20 Pulse 72 11/12/17 10:13 Resp 16 11/12/17 10:13 BP 127/78 11/12/17 09:14 Pulse Ox 94 L 11/12/17 09:14 Intake & Output 11/11/17 11/12/17 11/12/17 18:59 06:59 18:59 Intake Total 400 1780 Balance 400 1780 Weight 83 kg Intake: Oral 400 1780 Other: Voiding Method Toilet Urinal # Voids 2 - Exam General appearance: The patient is alert, oriented, in no acute distress. HET: Head is normocephalic and atraumatic. Pupils are equal and reactive. Oropharynx is clear without lesions. Neck: Supple without lymphadenopathy. Trachea midline. Heart: S1 S2. Regular rate and rhythm. Lungs: No crackles or wheezes are heard. Abdomen: Soft, nontender, nondistended with bowel sounds. No peritoneal signs. No palpable organomegaly or masses. Extremities: Normal skin color and turgor. No cyanosis, rash, ulceration, clubbing, or edema. Radial and pedal pulses are 2/4 bilaterally. Neurological: No focal deficits. Strength and sensation are grossly intact. - Labs CBC & Chem 7: 11/12/17 06:36 11/10/17 16:53 Labs: Abnormal Lab Results - Last 24 Hours (Table) 11/12/17 11/12/17 Range/Units 06:36 06:36 Plt Count 488 H (150-450) k/uL INR 1.2 H (<1.2) Microbiology - Last 24 Hours (Table) 11/10/17 16:53 Blood Culture - Preliminary Blood No Growth after 24 hours Assessment and Plan (1) Ascites Narrative/Plan: 57-year-old gentleman admitted with recurrent ascites lower leg edema elevated d -dimer with a history of alcohol liver disease cirrhosis chronic hepatitis C with recent hospitalizations for acute upper GI bleed secondary to esophageal varices status post banding as well as abnormal abdominal imaging suggestive of underlying liver mass malignancy with elevated alpha-fetoprotein marker and recent nondiagnostic liver biopsy. Current Visit: Yes Status: Acute Code(s): R18.8 - OTHER ASCITES SNOMED Code(s): 177992824 (2) Elevated alpha fetoprotein Current Visit: Yes Status: Acute Code(s): R77.2 - ABNORMALITY OF ALPHAFETOPROTEIN SNOMED Code(s): 031399838 (3) Elevated d-dimer Current Visit: Yes Status: Acute Code(s): R79.89 - OTHER SPECIFIED ABNORMAL FINDINGS OF BLOOD CHEMISTRY SNOMED Code(s): 052979055 (4) Chronic hepatitis C Current Visit: No Status: Acute Code(s): B18.2 - CHRONIC VIRAL HEPATITIS C SNOMED Code(s): 423873537 (5) Depression Current Visit: No Status: Acute Code(s): F32.9 - MAJOR DEPRESSIVE DISORDER, SINGLE EPISODE, UNSPECIFIED SNOMED Code(s): 16105751 (6) Elevated liver enzymes Current Visit: No Status: Acute Code(s): R74.8 - ABNORMAL LEVELS OF OTHER SERUM ENZYMES SNOMED Code(s): 459395143 (7) H/O ETOH abuse Current Visit: No Status: Acute Code(s): Z87.898 - PERSONAL HISTORY OF OTHER SPECIFIED CONDITIONS SNOMED Code(s): 617528156 (8) Heroin abuse Current Visit: No Status: Acute Code(s): F11.10 - OPIOID ABUSE, UNCOMPLICATED SNOMED Code(s): 2448001 (9) History of esophageal varices with bleeding Current Visit: No Status: Acute Code(s): Z87.19 - PERSONAL HISTORY OF OTHER DISEASES OF THE DIGESTIVE SYSTEM SNOMED Code(s): 464976449 (10) Portal hypertension Current Visit: No Status: Acute Code(s): K76.6 - PORTAL HYPERTENSION SNOMED Code(s): 68954639 Plan: 1. Discharge per medicine and oncology. Follow-up as advised. 2. Recommend low-salt diet. Return to GI office in 2-3 weeks. Assessment and plan a care discussed with Dr. Anaya
[2017-11-12 11:07] LABS: Folate, Serum 18.2 ng/mL
[2017-11-12] MEDS: FOLIC ACID 1 MG TAB PO SCH (11:20)
[2017-11-12] MEDS: FUROSEMIDE 10 MG/ML 10 ML VIAL IV SCH ×2 (11:20→20:46)
[2017-11-12] MEDS: PANTOPRAZOLE 40 MG/10 ML VIAL IV SCH (11:20)
[2017-11-12] MEDS: cefTRIAXone IN SWFI 1,000 MG/10 ML SYRINGE IVP SCH (11:23)
--- NOTE | 2017-11-12 12:44 | US ---
Discontinued paracentesis HISTORY: Ascites Exam correlated to CT abdomen pelvis 11/10/2017 Real-time ultrasound performed of the abdomen. Minimal ascites identified. No paracentesis performed at this time.
--- NOTE | 2017-11-12 14:06 | NM ---
EXAMINATION TYPE: NM bone scan whole body DATE OF EXAM: 11/12/2017 COMPARISON: NONE HISTORY: Pain Delayed whole-body scanning was performed following the injection of 25.7 mCi Tc 99m MDP. Images wer e acquired 5 hours post injection. FINDINGS: There is increased uptake overlying the left lateral ribs. This does not appear to be associated with the scapula and is better visualized on the frontal projection. It does appear to be some increased signal in the oblique view which potentially is an anterior chest. This area appears to correspond to a recent left chest wall surgery. Abnormal uptake within the osseous structures is not evident. IMPRESSION: 1. Uptake likely related to the patient's recent chest wall surgery. 2. No suspicious uptake within the osseous structures.
[2017-11-12] MEDS: NICOTINE 14MG/24HR PATCH TRANSDERM SCH (16:33)
[2017-11-13] MEDS: MORPHINE ORAL SOLN 10 MG/5 ML CUP PO PRN ×3 (01:40→14:47)
[2017-11-13] MEDS: IPRATROPIUM-ALBUTEROL 3 ML NEB INHALATION SCH ×3 (07:57→16:10)
[2017-11-13] MEDS: BUDESONIDE 1 MG/2 ML NEBU INHALATION SCH (07:57)
[2017-11-13] MEDS: THIAMINE 100 MG TAB PO SCH (08:48)
[2017-11-13] MEDS: PROPRANOLOL 10 MG TAB PO SCH ×2 (08:48→16:59)
[2017-11-13] MEDS: SPIRONOLACTONE 25 MG TAB PO SCH (08:48)
[2017-11-13] MEDS: NICOTINE 14MG/24HR PATCH TRANSDERM SCH (08:48)
[2017-11-13] MEDS ORDERED: predniSONE 20 MG TAB PO SCH (09:00)
[2017-11-13] MEDS: FUROSEMIDE 10 MG/ML 10 ML VIAL IV SCH (10:33)
[2017-11-13] MEDS: PANTOPRAZOLE 40 MG/10 ML VIAL IV SCH (10:34)
[2017-11-13] MEDS: cefTRIAXone IN SWFI 1,000 MG/10 ML SYRINGE IVP SCH (10:35)
[2017-11-13] MEDS: FOLIC ACID 1 MG TAB PO SCH (12:40)
[2017-11-13 13:43] VITALS: BP 141/81; TEMP 98
[2017-11-13 15:27] VITALS: PULSE 87; RESP 18
--- NOTE | 2017-11-13 16:43 | P.PN ---
Subjective Progress Note Date: 11/13/17 Principal diagnosis: Liver lesion Alexander seen in follow-up today, he was unable to have a paracentesis performed for lack of ascitic fluid and states his pain is still there. His bone scan was revoewed and failed to show any concern for metastatic bone lesions. Objective - Vital Signs Vital signs: Vital Signs Temp 97.6 F 11/13/17 07:00 Pulse 76 11/13/17 12:47 Resp 13 11/13/17 07:00 BP 131/76 11/13/17 07:00 Pulse Ox 92 L 11/13/17 07:00 Intake & Output 11/12/17 11/13/17 11/13/17 18:59 06:59 18:59 Intake Total 18 Balance 18 Weight 79.696 kg 80.2 kg Intake: IV 18 lasix ivp 8 saline flush 10 Other: Voiding Method Toilet Toilet Toilet Urinal # Voids 3 2 - Constitutional General appearance: Present: cooperative, no acute distress - EENT Eyes: Present: EOMI, PERRLA, poor dentition ENT: Present: NA/AT, normal oropharynx - Neck Details: Supple trachea midline Neck: Present: normal ROM - Respiratory Respiratory: bilateral: diminished (diminished lower lobes) - Cardiovascular Rhythm: regular Heart sounds: normal: S1, S2 - Peripheral edema leg Peripheral Edema: bilateral: Trace - Gastrointestinal General gastrointestinal: Present: distended, hepatomegaly, soft, tenderness - Integumentary Integumentary: Present: pale - Neurologic Neurologic Comment(s): No focal defects Neurologic: Present: CNII-XII intact - Musculoskeletal Musculoskeletal: Present: gait normal, generalized weakness, strength equal bilaterally - Psychiatric Psychiatric: Present: A&O x's 3, appropriate affect, intact judgment & insight - Labs CBC & Chem 7: 11/12/17 06:36 11/10/17 16:53 Labs: Microbiology - Last 24 Hours (Table) 11/10/17 16:53 Blood Culture - Preliminary Blood No Growth after 48 hours Assessment and Plan (1) Edema extremities Current Visit: Yes Status: Acute Code(s): R60.0 - LOCALIZED EDEMA SNOMED Code(s): 417242276 (2) Liver mass Current Visit: Yes Status: Acute Code(s): R16.0 - HEPATOMEGALY, NOT ELSEWHERE CLASSIFIED SNOMED Code(s): 138688830 (3) Diarrhea Current Visit: No Status: Acute Code(s): R19.7 - DIARRHEA, UNSPECIFIED SNOMED Code(s): 07369342 (4) Elevated liver enzymes Current Visit: No Status: Acute Code(s): R74.8 - ABNORMAL LEVELS OF OTHER SERUM ENZYMES SNOMED Code(s): 270868755 (5) Heroin abuse Current Visit: No Status: Acute Code(s): F11.10 - OPIOID ABUSE, UNCOMPLICATED SNOMED Code(s): 9343007 (6) History of esophageal varices with bleeding Current Visit: No Status: Acute Code(s): Z87.19 - PERSONAL HISTORY OF OTHER DISEASES OF THE DIGESTIVE SYSTEM SNOMED Code(s): 876541437 (7) Liver disease Current Visit: No Status: Acute Code(s): K76.9 - LIVER DISEASE, UNSPECIFIED SNOMED Code(s): 910435810 (8) Portal hypertension Current Visit: No Status: Acute Code(s): K76.6 - PORTAL HYPERTENSION SNOMED Code(s): 11836501 (9) Portal vein thrombosis Current Visit: No Status: Acute Code(s): I81 - PORTAL VEIN THROMBOSIS SNOMED Code(s): 28467759 Plan: Assessment and Recommendations: 1. Liver mass - Previous Pathology failed to show evidence of Malignancy - Need to obtain recent diagnostics and pathology from [facility], unclear if a proven malignancy was identified at outside facility - Follow-up appointment with Dr. Swartz at [facility] on 11/20 at 2:30, patient aware and in discharge will follow-up with recs at that time. 2. Alcoholic Cirrhosis - - GI to follow - Monitor Liver Function - Supportive Paracentesis (obtain diagnostic fluid studies) - Unable to perform and obtain secondary to not enough fluid per GI 3. Anemia - Secondary number 2 - Monitor CBC - B12, MMA, Folate levels 4. Persistent worsening pain: - Pain service to consult - Bone Scan Ordered and completed, no signs of metastatic bone lesions Physician Attestation: I have completed the full history and physical of this patient and discussed and agree with the above dictation from Lupe Muñiz OCCUPATIONAL MEDICINE SPECIALIST, Dictated as a scribe.
--- NOTE | 2017-11-16 20:18 | P.PN ---
Subjective Progress Note Date: 11/12/17 Progress note being dictated for Dr. Castañeda Interval History: Patient with known history of alcoholic cirrhosis came in with abdominal pain diffuse about the 7/10 in severity sharp nonradiating. Along with the cough with ALLERGIC to greenish sputum production. His symptoms has been going on for last 3-4 days and the patient has a questionable diagnosis of cancer he doesn't know where it is and he doesn't know the primary his supposed to follow- up with oncology as an outpatient patient doesn't have any fevers. Patient was recently admitte [facility] unsure whether patient has portal vein thrombosis are not we're getting the information from [facility] at this point of time temporarily anti-ration will be held for paracentesis. Patient is also wheezing on exam does have COPD exacerbation CT is unclear whether patient has a pneumonia on the right lower lungs patient has mostly atelectasis there is some a bronchogram because of the abdominal pain tenderness and also possibility of releases of pneumonia patient was started on Rocephin. Patient is also complaining of for her diarrhea about 3-4 episodes a day even without lactulose. Review of Systems REVIEW OF SYSTEMS: CONSTITUTIONAL: No fever, no malaise, no fatigue. HEENT: No recent visual problems or hearing problems. Denied any sore throat. CARDIOVASCULAR: No chest pain, orthopnea, PND, no palpitations, no syncope. PULMONARY: As mentioned in HPI GASTROINTESTINAL: As mentioned in HPI NEUROLOGICAL: No headaches, no weakness, no numbness. HEMATOLOGICAL: Denies any bleeding or petechiae. GENITOURINARY: Denies any burning micturition, frequency, or urgency. MUSCULOSKELETAL/RHEUMATOLOGICAL: Denies any joint pain, swelling, or any muscle pain. ENDOCRINE: Denies any polyuria or polydipsia. The rest of the 14-point review of systems is negative. 11/12/17 no overnight events. Evaluated by both GI and oncology with recommendations noted. Bone scan reported increased uptake in the left lateral ribs secondary to a recent chest wall surgery, without metasis as per oncology review. Abdomen/pelvis ultrasound -minimal ascites with no paracentesis at this time. Initially had planned for discharge but patient appears more anxious , shortness of breath. Objective - Vital Signs Vital signs: Vital Signs Temp 97.6 F 11/12/17 07:20 Pulse 84 11/12/17 16:51 Resp 16 04/11/18 10:13 BP 123/75 11/12/17 16:51 Pulse Ox 94 L 11/12/17 16:51 Intake & Output 11/12/17 11/12/17 11/13/17 06:59 18:59 06:59 Intake Total 1780 Balance 1780 Weight 79.696 kg Intake: Oral 1779 Other: Voiding Method Toilet Urinal # Voids 2 3 - Exam GENERAL: The patient is alert and oriented x3, not in any acute distress. Well developed, well nourished. HEENT: Pupils are round and equally reacting to light. EOMI. No scleral icterus. No conjunctival pallor. Normocephalic, atraumatic. No pharyngeal erythema. No thyromegaly. CARDIOVASCULAR: S1 and S2 present. No murmurs, rubs, or gallops. PULMONARY: Expiratory wheezing was appreciated right lower lung crackles were appreciated ABDOMEN: Only his abdominal tenderness was appreciated patient does have ascites and the shifting dullness. MUSCULOSKELETAL: No joint swelling or deformity. EXTREMITIES: No cyanosis, clubbing, or pedal edema. NEUROLOGICAL: Gross neurological examination did not reveal any focal deficits. SKIN: No rashes. - Labs CBC & Chem 7: 11/12/17 06:36 11/10/17 16:53 Labs: Abnormal Lab Results - Last 24 Hours (Table) 11/12/17 11/12/17 11/12/17 Range/Units 06:36 06:36 06:36 Plt Count 488 H (150-450) k/uL INR 1.2 H (<1.2) Tumor Marker AFP 5646.0 H (0.0-7.9) ng/mL Microbiology - Last 24 Hours (Table) 11/10/17 16:53 Blood Culture - Preliminary Blood No Growth after 48 hours Assessment and Plan Assessment: -Cirrhosis resurrent ascites, minimal per ultrasound with no paracentesis at this time -Possibility of early status of pneumonia patient will be continued on Rocephin as mentioned above -COPD with acute exacerbation -Alcoholic cirrhosis - hypertension -History of hepatitis C and possible hepatocellular carcinoma-Unproven diagnosis ,patient will need to follow with Dr. Swartz as an outpatient for further workup and review of medical records from [facility] -Depression -Possible right lower lobe Pneumonia -Leukocytosis secondary to systemic steroids -Elevated liver enzymes to due to alcoholic cirrhosis and probably a competent of hepatitis. Plan: Continue current medication regime ,monitoring and symptomatic treatment. Follow closely with GI, oncology. Awaiting medical records [facility] and [facility]'s. AFP in progress. Discharge Planning in Progress. The impression and plan of care has been dictated as directed. : I performed a history and examination of this patient, discussed the same with the dictator. I agree with the dictator's note ,documented as a scribe. Any additional findings or plans will be noted.
--- NOTE | 2017-11-16 20:38 | P.DS ---
Providers Date of admission: 11/10/17 19:56 Expected date of discharge: 11/13/17 Attending physician: Mansi Castañeda Consults: 11/10/17 19:57 Consult Physician Routine Consulting Provider: Nahum Swartz Consult Reason/Comments: liver cancer Do you want consulting provider notified?: Yes Primary care physician: [facility] Hospital Course: Final Diagnoses: -Cirrhosis resurrent ascites, minimal per ultrasound with no paracentesis at this time -Possibility of early status of pneumonia patient will be continued on Rocephin as mentioned above -COPD with acute exacerbation -Alcoholic cirrhosis - hypertension -History of hepatitis C , liver mass, Elevated AFP -possible hepatocellular carcinoma-Unproven diagnosis ,patient will need to follow with Dr. Swartz as an outpatient for further workup and review of medical records from [facility] -Depression -Possible right lower lobe Pneumonia -Leukocytosis secondary to systemic steroids -Elevated liver enzymes to due to alcoholic cirrhosis and probably a competent of hepatitis. -Portal HTN Hospital course:Patient with known history of alcoholic cirrhosis came in with abdominal pain diffuse about the 7/10 in severity sharp nonradiating. Along with the cough with ALLERGIC to greenish sputum production. His symptoms has been going on for last 3-4 days and the patient has a questionable diagnosis of cancer he doesn't know where it is and he doesn't know the primary his supposed to follow-up with oncology as an outpatient patient doesn't have any fevers. Patient was recently admitte [facility] unsure whether patient has portal vein thrombosis are not we're getting the information from [facility] at this point of time temporarily anti-ration will be held for paracentesis. Patient is also wheezing on exam does have COPD exacerbation CT is unclear whether patient has a pneumonia on the right lower lungs patient has mostly atelectasis there is some a bronchogram because of the abdominal pain tenderness and also possibility of releases of pneumonia patient was started on Rocephin. Patient is also complaining of for her diarrhea about 3-4 episodes a day even without lactulose. Evaluated by both GI and oncology. Elevated AFP. Bone scan reported increased uptake in the left lateral ribs secondary to a recent chest wall surgery, without metasis as per oncology review. Abdomen/pelvis ultrasound - minimal ascites with no paracentesis at this time. Received empiric IV antibiotics for potential pneumonia. Significant clinical improvement. Patient has been cleared by both oncology and GI for discharge.History of hepatitis C, Liver mass -possible hepatocellular carcinoma-Unproven diagnosis , patient will need to follow with Dr. Swartz as an outpatient for further workup and review of medical records from [facility].. Patient is being discharged in a stable condition with guarded prognosis. GENERAL: VSS, alert and oriented x3, not in any acute distress. CARDIOVASCULAR: S1 and S2 present. No murmurs, rubs, or gallops. PULMONARY: right lower lung crackles were appreciated ABDOMEN: Soft, distended,positive ascites, shifting dullness,nontender, positive bowel sounds NEUROLOGICAL: Gross neurological examination did not reveal any focal deficits. The impression and plan of care has been dictated as directed. : I performed a history and examination of this patient, discussed the same with the dictator. I agree with the dictator's note ,documented as a scribe. Any additional findings or plans will be noted. Time taken: 35 minutes Patient Condition at Discharge: Stable Plan - Discharge Summary New Discharge Prescriptions: New Cefuroxime Axetil [Ceftin] 500 mg PO BID #14 tab Morphine Sulfate Ir [MSIR] 15 mg PO Q4H PRN #18 tab PRN Reason: Pain Continue Beclomethasone Dipropionate [Qvar 80 mcg] 1 puff INHALATION RT-BID Albuterol Inhaler [Ventolin Hfa Inhaler] 2 puff INHALATION RT-Q6H PRN PRN Reason: Shortness Of Breath Thiamine HCl [Vitamin B-1] 100 mg PO DAILY Omeprazole 40 mg PO DAILY Naproxen 500 mg PO BID PRN PRN Reason: Pain Folic Acid 1 mg PO DAILY Ondansetron Odt [Zofran ODT] 4 mg PO Q8HR PRN #20 tab PRN Reason: Nausea Propranolol [Inderal] 10 mg PO TID Furosemide [Lasix] 80 mg PO DAILY Spironolactone [Aldactone] 25 mg PO DAILY Lactulose 10 gm PO DAILY PRN PRN Reason: Constipation Hydrocodone/Acetaminophen [[place]armine 7.5-325] 1 tab PO Q6HR PRN #10 tab PRN Reason: Pain No Action predniSONE See Taper PO DAILY Tiotropium [place] [Spiriva] 1 cap INHALATION RT-DAILY Discharge Medication List Beclomethasone Dipropionate [Qvar 80 mcg] 1 puff INHALATION RT-BID 10/08/17 [ History] Albuterol Inhaler [Ventolin Hfa Inhaler] 2 puff INHALATION RT-Q6H PRN 10/28/17 [ History] Folic Acid 1 mg PO DAILY 10/28/17 [History] Naproxen 500 mg PO BID PRN 10/28/17 [History] Omeprazole 40 mg PO DAILY 10/28/17 [History] Ondansetron Odt [Zofran ODT] 4 mg PO Q8HR PRN #20 tab 10/28/17 [Rx] Thiamine HCl [Vitamin B-1] 100 mg PO DAILY 10/28/17 [History] Furosemide [Lasix] 80 mg PO DAILY 11/05/17 [History] Lactulose 10 gm PO DAILY PRN 11/05/17 [History] Propranolol [Inderal] 10 mg PO TID 11/05/17 [History] Spironolactone [Aldactone] 25 mg PO DAILY 11/05/17 [History] Hydrocodone/Acetaminophen [Carmine 7.5-325] 1 tab PO Q6HR PRN #10 tab 11/06/17 [Rx ] Cefuroxime Axetil [Ceftin] 500 mg PO BID #14 tab 11/13/17 [Rx] Morphine Sulfate Ir [MSIR] 15 mg PO Q4H PRN #18 tab 11/13/17 [Rx] Tiotropium [place] [Spiriva] 1 cap INHALATION RT-DAILY 11/16/17 [History] predniSONE See Taper PO DAILY 11/16/17 [History] Follow up Appointment(s)/Referral(s): Nahum Swartz MD [STAFF PHYSICIAN] - 11/20/17 2:30 am ([facility] Location ) Amanda Anaya MD [STAFF PHYSICIAN] - 3 Weeks Kandace Hamlin MD [Primary Care Provider] - 1 Week Patient Instructions/Handouts: Ascites (DC) Care Plan Goals (MU): Pain clinic: Dr. Ellington [phone] Discharge Disposition: HOME SELF-CARE
== END 2017-11-13 17:30 | disposition home or self-care (01) | DRG 432 ==
LOC: EC 15:14 → 5ONC 19:56
PROVIDERS: ADMIT Hospitalist; ATTEND Hospitalist
DX: K70.31 Alcoholic cirrhosis of liver with ascites (principal); I81 Portal vein thrombosis; J18.9 Pneumonia, unspecified organism; K76.6 Portal hypertension; J44.0 Chronic obstructive pulmonary disease with (acute) lower respiratory infection; J44.1 Chronic obstructive pulmonary disease with (acute) exacerbation; J98.11 Atelectasis; R16.0 Hepatomegaly, not elsewhere classified; B18.2 Chronic viral hepatitis C; R19.7 Diarrhea, unspecified; K21.9 Gastro-esophageal reflux disease without esophagitis; I10 Essential (primary) hypertension; M54.9 Dorsalgia, unspecified; G89.29 Other chronic pain; F32.9 Major depressive disorder, single episode, unspecified; F17.210 Nicotine dependence, cigarettes, uncomplicated; D63.8 Anemia in other chronic diseases classified elsewhere; R79.89 Other specified abnormal findings of blood chemistry; R79.1 Abnormal coagulation profile; R77.2 Abnormality of alphafetoprotein; F41.9 Anxiety disorder, unspecified; Z87.01 Personal history of pneumonia (recurrent); Z86.19 Personal history of other infectious and parasitic diseases; Z79.51 Long term (current) use of inhaled steroids; Z79.899 Other long term (current) drug therapy; Z87.19 Personal history of other diseases of the digestive system; D72.829 Elevated white blood cell count, unspecified; T38.0X5A Adverse effect of glucocorticoids and synthetic analogues, initial encounter; Y92.230 Patient room in hospital as the place of occurrence of the external cause
CPT/HCPCS: 36415; 71275; 74177; 76705; 78306; 80053; 81003; 82105; 82150; 82550; 82553; 82607; 82746; 83605; 83690; 84484; 85025; 85049; 85379; 85610; 85730; 87040; 93005; 94640; 96374; 96375; 99285

== ENCOUNTER 2017-11-15 17:31 | Inpatient (IN) | payer OTHER ==
[2017-11-15] MEDS ORDERED: methylPREDNISolone SOD SUCCI 125 MG/2 ML VIAL IV STA (17:43)
[2017-11-15] MEDS ORDERED: IPRATROPIUM 0.5 MG/2.5 ML NEBU INHALATION STA (17:43)
[2017-11-15] MEDS ORDERED: SODIUM CHLORIDE 0.9% 1,000 ML IV STA ×2 (17:43)
[2017-11-15] MEDS ORDERED: AZITHROMYCIN 500 MG in SODIUM CHLORIDE 0.9% 250 ML IVPB STA (17:43)
[2017-11-15] MEDS ORDERED: ALBUTEROL NEBULIZED 2.5 MG/3 ML INHALATION STA ×2 (17:43→21:53)
--- NOTE | 2017-11-15 17:51 | ED ---
General Adult HPI - General Source: RN notes reviewed, old records reviewed <Vineet Spence - Last Filed: 11/15/17 18:06> <Vineet Taylor - Last Filed: 11/15/17 21:05> - General Stated complaint: Diff Breathing Time Seen by Provider: 11/15/17 17:43 - History of Present Illness Initial comments: This is a 49-year-old male the ER for evaluation. She presents for evaluation regards to not feeling well being short of breath. Patient has recent diagnosis of liver failure and cirrhosis. He did have paracentesis 3 days ago. Patient recent hospital discharge 2 days ago. Patient is known at this time liver cancer. No significant treatment being undertaken. Patient also complaining of some mild shortness of breath, no chest pain no fevers. Decreased appetite. (Vineet Spence) - Related Data Home Medications Medication Instructions Recorded Confirmed Beclomethasone Dipropionate [Qvar 1 puff INHALATION RT-BID 10/08/17 11/10/17 80 mcg] Albuterol Inhaler [Ventolin Hfa 2 puff INHALATION RT-Q6H PRN 10/28/17 11/10/17 Inhaler] Folic Acid 1 mg PO DAILY 10/28/17 11/10/17 Naproxen 500 mg PO BID PRN 10/28/17 11/10/17 Omeprazole 40 mg PO DAILY 10/28/17 11/10/17 Thiamine HCl [Vitamin B-1] 100 mg PO DAILY 10/28/17 11/10/17 Furosemide [Lasix] 80 mg PO DAILY 11/05/17 11/10/17 Lactulose 10 gm PO DAILY PRN 11/05/17 11/10/17 Propranolol [Inderal] 10 mg PO TID 11/05/17 11/10/17 Spironolactone [Aldactone] 25 mg PO DAILY 11/05/17 11/10/17 Previous Rx's Medication Instructions Recorded Ondansetron Odt [Zofran ODT] 4 mg PO Q8HR PRN #20 tab 10/28/17 Hydrocodone/Acetaminophen [[place] 1 tab PO Q6HR PRN #10 tab 11/06/17 7.5-325] Cefuroxime Axetil [Ceftin] 500 mg PO BID #14 tab 11/13/17 Morphine Sulfate Ir [MSIR] 15 mg PO Q4H PRN #18 tab 11/13/17 Tiotropium [place] [Spiriva] 1 cap INHALATION DAILY #1 device 11/13/17 predniSONE 10 mg PO DAILY #30 tab 11/13/17 Allergies Allergy/AdvReac Type Severity Reaction Status Date / Time No Known Allergies Allergy Verified 11/10/17 16:17 Review of Systems ROS Other: All systems not noted in ROS Statement are negative. <Vineet Spence - Last Filed: 11/15/17 18:06> ROS Other: All systems not noted in ROS Statement are negative. <Vineet Taylor - Last Filed: 11/15/17 21:05> ROS Statement: Those systems with pertinent positive or pertinent negative responses have been documented in the HPI. Past Medical History Past Medical History: GERD/Reflux, Hypertension, Liver Disease, Pneumonia Additional Past Medical History / Comment(s): chronic back pain, cirrhosis, and liver cancer, Hepatitis C History of Any Multi-Drug Resistant Organisms: None Reported Past Surgical History: Adenoidectomy, Appendectomy, Cholecystectomy, Orthopedic Surgery, Tonsillectomy Additional Past Surgical History / Comment(s): ORIF broken left leg Past Anesthesia/Blood Transfusion Reactions: No Reported Reaction Past Psychological History: Anxiety, Depression Smoking Status: Current every day smoker Past Alcohol Use History: None Reported Additional Past Alcohol Use History / Comment(s): 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", 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13 Past Drug Use History: None Reported 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 - Past Family History Mother History Unknown: Yes Additional Family Medical History / Comment(s): huntingtons <Vineet Spence - Last Filed: 11/15/17 18:06> Course <Vineet Spence - Last Filed: 11/15/17 18:06> <Vineet Taylor - Last Filed: 11/15/17 21:05> Vital Signs 11/15/17 11/15/17 11/15/17 18:04 18:22 18:47 Temperature 96.9 F L Pulse Rate 91 86 84 Respiratory 26 H Rate Blood Pressure 130/69 O2 Sat by Pulse 98 Oximetry 11/15/17 19:00 Temperature Pulse Rate 86 Respiratory Rate Blood Pressure O2 Sat by Pulse Oximetry - Reevaluation(s) Reevaluation #1: 11/15/17 18:06 Patient states his any difficulty getting his insurance to work for his prescriptions after discharge (Vineet Spence) EKG Findings - EKG Comments: EKG Findings:: EKG shows normal sinus rhythm rate of 92, UT 134, QRS 96, QTc 504 <Vineet Spence - Last Filed: 11/15/17 18:06> Medical Decision Making <Vineet Spence - Last Filed: 11/15/17 18:06> - Lab Data Result diagrams: 11/15/17 18:25 11/15/17 20:06 <Vineet Taylor - Last Filed: 11/15/17 21:05> - Medical Decision Making I went back into the room to evaluate the patient. Patient stated he was too weak to get out of bed and ambulate. Patient continued complaining of chronic abdominal pain. Patient continues to state he was this neck. When I listened to the patient he was bilaterally rhonchorous though oxygenating good with oxygen while he was lying . Patient states been coughing quite a bit more lately. Patient states he doesn't think uvula tolerate the breathing the weakness in the pain at home by himself. Patient's blood was unable to be drawn for a lactic acid and he did not want to have a femoral stick for me to get the blood. Chest x-ray shows atelectasis versus infiltrate however because the patient is coughing more short of breath and has a white count, siblings pneumonia and treated the patient for pneumonia. I spoke with Dr. Gramajo from [facility] he stated the patient was here in less than a month ago so he did not want to take the patient he wanted Dr. Castañeda take the patient because he saw him in the past. I spoke with Dr. Castañeda he agreed to take the patient and admitted the patient wrote admitting orders (Vineet Taylro) - Lab Data Lab Results 11/15/17 11/15/17 11/15/17 Range/Units 18:25 18:25 18:25 WBC 14.5 H (3.8-10.6) k/uL RBC 4.29 L (4.30-5.90) m/uL Hgb 9.7 L (13.0-17.5) gm/dL Hct 34.3 L (39.0-53.0) % MCV 79.9 L D (80.0-100.0) fL MCH 22.7 L (25.0-35.0) pg MCHC 28.4 L (31.0-37.0) g/dL RDW 16.8 H (11.5-15.5) % Plt Count 348 (150-450) k/uL Neutrophils % (Manual) 69 % Band Neutrophils % 1 % Lymphocytes % (Manual) 28 % Monocytes % (Manual) 2 % Neutrophils # (Manual) 10.10 H (1.3-7.7) k/uL Lymphocytes # (Manual) 4.06 (1.0-4.8) k/uL Monocytes # (Manual) 0.29 (0-1.0) k/uL Nucleated RBCs 0 (0-0) /100 WBC Manual Slide Review Performed Polychromasia Present Hypochromasia Marked Poikilocytosis Slight Poikilocytosis (manual Present Anisocytosis Slight Anisocytosis (manual) Present Target Cells Present Sodium (137-145) mmol/L Potassium (3.5-5.1) mmol/L Chloride (98-107) mmol/L Carbon Dioxide (22-30) mmol/L Anion Gap mmol/L BUN (9-20) mg/dL Creatinine (0.66-1.25) mg/dL Est GFR (CKD-EPI)AfAm (>60 ml/min/1.73 sqM) Est GFR (CKD-EPI)NonAf (>60 ml/min/1.73 sqM) Glucose (74-99) mg/dL Calcium (8.4-10.2) mg/dL Magnesium (1.6-2.3) mg/dL Total Bilirubin (0.2-1.3) mg/dL AST (17-59) U/L ALT (21-72) U/L Alkaline Phosphatase (38-126) U/L Ammonia (<30) umol/L Creatine Kinase (55-170) U/L CK-MB (CK-2) 0.4 (0.0-2.4) ng/mL Troponin I <0.012 (0.000-0.034) ng/mL NT-Pro-B Natriuret Pep 317 pg/mL Total Protein (6.3-8.2) g/dL Albumin (3.5-5.0) g/dL 11/15/17 11/15/17 Range/Units 18:25 20:06 WBC (3.8-10.6) k/uL RBC (4.30-5.90) m/uL Hgb (13.0-17.5) gm/dL Hct (39.0-53.0) % MCV (80.0-100.0) fL MCH (25.0-35.0) pg MCHC (31.0-37.0) g/dL RDW (11.5-15.5) % Plt Count (150-450) k/uL Neutrophils % (Manual) % Band Neutrophils % % Lymphocytes % (Manual) % Monocytes % (Manual) % Neutrophils # (Manual) (1.3-7.7) k/uL Lymphocytes # (Manual) (1.0-4.8) k/uL Monocytes # (Manual) (0-1.0) k/uL Nucleated RBCs (0-0) /100 WBC Manual Slide Review Polychromasia Hypochromasia Poikilocytosis Poikilocytosis (manual Anisocytosis Anisocytosis (manual) Target Cells Sodium 141 (137-145) mmol/L Potassium 4.6 (3.5-5.1) mmol/L Chloride 105 (98-107) mmol/L Carbon Dioxide 21 L (22-30) mmol/L Anion Gap 15 mmol/L BUN 30 H (9-20) mg/dL Creatinine 0.80 (0.66-1.25) mg/dL Est GFR (CKD-EPI)AfAm >90 (>60 ml/min/1.73 sqM) Est GFR (CKD-EPI)NonAf >90 (>60 ml/min/1.73 sqM) Glucose 159 H (74-99) mg/dL Calcium 8.7 (8.4-10.2) mg/dL Magnesium 2.3 (1.6-2.3) mg/dL Total Bilirubin 3.6 H (0.2-1.3) mg/dL AST 290 H (17-59) U/L ALT 112 H (21-72) U/L Alkaline Phosphatase 606 H (38-126) U/L Ammonia 22 (<30) umol/L Creatine Kinase 41 L (55-170) U/L CK-MB (CK-2) (0.0-2.4) ng/mL Troponin I (0.000-0.034) ng/mL NT-Pro-B Natriuret Pep pg/mL Total Protein 6.5 (6.3-8.2) g/dL Albumin 2.7 L (3.5-5.0) g/dL Disposition <Vineet Spence - Last Filed: 11/15/17 18:06> Time of Disposition: 21:01 <Vnieet Taylor - Last Filed: 11/15/17 21:05> Clinical Impression: Pneumonia, Liver cirrhosis, Liver malignancy Disposition: ADMITTED IP TO THIS HOSP Referrals: Kandace Hamlin MD [Primary Care Provider] - 1-2 days
[2017-11-15 18:44] LABS: Anisocytosis Slight; HCT 34.3 % (39.0-53.0); HGB 9.7 gm/dL (13.0-17.5); Hypochromasia Marked; MCH 22.7 pg (25.0-35.0); MCHC 28.4 g/dL (31.0-37.0); Mean Platelet Volume 8.5; Platelet Count 348 k/uL (150-450); Poikilocytosis Slight; RBC 4.29 m/uL (4.30-5.90); RDW 16.8 % (11.5-15.5); WBC 14.5 k/uL (3.8-10.6)
[2017-11-15 19:00] LABS: MCV 79.9 fL (80.0-100.0)
[2017-11-15 19:07] LABS: Creatine Kinase MB 0.4 ng/mL (0.0-2.4); Troponin I <0.012 ng/mL (0.000-0.034)
[2017-11-15 19:13] LABS: Anisocytosis (M) Present; Band Neutrophils % 1 %; Lymphocytes # (M) 4.06 k/uL (1.0-4.8); Monocytes # (M) 0.29 k/uL (0-1.0); Neutrophils % (M) 69 %; Nucleated Red Blood Cells 0 /100 WBC (0-0); Poikilocytosis (M) Present; Polychromasia Present; Target Cells Present; Total Cells Counted 100
--- NOTE | 2017-11-15 19:24 | XR ---
EXAMINATION TYPE: XR chest 2V DATE OF EXAM: 11/15/2017 COMPARISON: CT 11/10/2017, chest x-ray 11/03/2017 HISTORY: Difficulty breathing TECHNIQUE: Frontal and lateral views of the chest are obtained. FINDINGS: Lumbar below. Basilar atelectatic changes are present. No pneumothorax or evident effusion . Cardiac mediastinal silhouette, pulmonary vascularity and munira are stable. IMPRESSION: Probable basilar atelectasis versus scarring, correlate to exclude pneumonia. Expiratory exam.
[2017-11-15] MEDS ORDERED: MORPHINE SULFATE 4MG/4ML SYRG ONE (20:14)
[2017-11-15] MEDS ORDERED: MORPHINE SULFATE 4MG/4ML SYRG IVP STA (20:16)
[2017-11-15 20:25] LABS: ALT 112 U/L (21-72); AST 290 U/L (17-59); Albumin 2.7 g/dL (3.5-5.0); Alkaline Phosphatase 606 U/L (38-126); Anion Gap 15 mmol/L; Blood Urea Nitrogen 30 mg/dL (9-20); Calcium 8.7 mg/dL (8.4-10.2); Carbon Dioxide 21 mmol/L (22-30); Chloride 105 mmol/L (98-107); Creatine Kinase 41 U/L (55-170); Glucose 159 mg/dL (74-99); Magnesium 2.3 mg/dL (1.6-2.3); Potassium 4.6 mmol/L (3.5-5.1); Sodium 141 mmol/L (137-145); Total Bilirubin 3.6 mg/dL (0.2-1.3); Total Protein 6.5 g/dL (6.3-8.2)
[2017-11-15] MEDS ORDERED: cefTRIAXone IN SWFI 1,000 MG/10 ML SYRINGE IVP STA (20:57)
[2017-11-15] MEDS ORDERED: PNEUMONIA PROTOCOL UTILIZED 1 EACH MISC PO PRN (21:06)
[2017-11-15 22:06] LABS: INR 1.2 (<1.2); Prothrombin Time 11.5 sec (9.0-12.0)
[2017-11-15 22:17] LABS: Partial Thromboplastin Time 21.5 sec (22.0-30.0)
[2017-11-15] MEDS: MORPHINE SULFATE 4MG/4ML SYRG IVP PRN (23:52)
[2017-11-16 02:55] VITALS: BMI 25.4
[2017-11-16] MEDS: MORPHINE SULFATE 4MG/4ML SYRG IVP PRN ×2 (04:05→12:45)
--- NOTE | 2017-11-16 06:48 | XR ---
EXAMINATION TYPE: XR chest 2V DATE OF EXAM: 11/16/2017 HISTORY: pneumonia. REFERENCE: Previous study dated 11/15/2017. FINDINGS: There continue to be areas of platelike atelectasis of both lungs. The heart is not enlarge d. Pulmonary vasculature is normal. I suspect a small left effusion. IMPRESSION: 1. BILATERAL AREAS OF PLATELIKE ATELECTASIS. 2. I SUSPECT A DEVELOPING LEFT-SIDED EFFUSION.
[2017-11-16] MEDS: IPRATROPIUM-ALBUTEROL 3 ML NEB INHALATION SCH ×3 (07:58→15:23)
[2017-11-16] MEDS ORDERED: MORPHINE SULF 5MG/10ML VL IV ONE (08:15)
[2017-11-16] MEDS ORDERED: cefTRIAXone IN SWFI 1,000 MG/10 ML SYRINGE IVP SCH (09:00)
[2017-11-16] MEDS ORDERED: AZITHROMYCIN 500 MG TAB PO SCH (09:00)
--- NOTE | 2017-11-16 11:07 | P.HPIM ---
History of Present Illness 51-year-old male with history of cirrhosis and questionable history of hepatocellular carcinoma which was never proven yet, has to follow up with the oncology as an outpatient came in because he ran out of his medications including pain medications. There is no significant change since last discharge patient has a social issues. Patient came in complaining of not feeling well. Patient was admitted for pneumonia although patient was discharged on Ceftin for pneumonia patient still has that infiltrate no new infiltrate was appreciated patient mostly has bilateral atelectasis. No significant change in his clinical condition. We will also obtain bottle caser consulted. There is no medical reason for this patient readmitted again, patient doesn't have enough fluid last time to do paracentesis patient's abdomen is bit distended no significant change compared to last hospitalization minimal bilateral pedal edema. Unfortunately I cannot offer him anything more than what he already has. Patient was given prescription for morphine for 3 days and will not be provided with any more narcotic medications until he sees his primary care physician. After the bottle caser/social work evaluation patient will be discharged. Review of Systems REVIEW OF SYSTEMS: CONSTITUTIONAL: No fever, no malaise, complaining of fatigue HEENT: No recent visual problems or hearing problems. Denied any sore throat. CARDIOVASCULAR: No chest pain, orthopnea, PND, no palpitations, no syncope. PULMONARY: No shortness of breath, no cough, no hemoptysis. GASTROINTESTINAL: No diarrhea, no nausea, no vomiting, no abdominal pain. Normoactive bowel sounds. NEUROLOGICAL: No headaches, no weakness, no numbness. HEMATOLOGICAL: Denies any bleeding or petechiae. GENITOURINARY: Denies any burning micturition, frequency, or urgency. MUSCULOSKELETAL/RHEUMATOLOGICAL: Denies any joint pain, swelling, or any muscle pain. ENDOCRINE: Denies any polyuria or polydipsia. The rest of the 14-point review of systems is negative. Past Medical History Past Medical History: GERD/Reflux, Hypertension, Liver Disease, Pneumonia Additional Past Medical History / Comment(s): chronic back pain, cirrhosis, liver cancer, Hepatitis C History of Any Multi-Drug Resistant Organisms: None Reported Past Surgical History: Adenoidectomy, Appendectomy, Cholecystectomy, Orthopedic Surgery, Tonsillectomy Additional Past Surgical History / Comment(s): ORIF broken left leg Past Anesthesia/Blood Transfusion Reactions: No Reported Reaction Past Psychological History: Anxiety, Depression Smoking Status: Current every day smoker Past Alcohol Use History: None Reported Additional Past Alcohol Use History / Comment(s): 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", 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13 Past Drug Use History: None Reported 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 - Past Family History Mother History Unknown: Yes Additional Family Medical History / Comment(s): huntingtons Medications and Allergies Home Medications Medication Instructions Recorded Confirmed Type Beclomethasone Dipropionate [Qvar 1 puff INHALATION RT-BID 10/08/17 11/10/17 History 80 mcg] Albuterol Inhaler [Ventolin Hfa 2 puff INHALATION RT-Q6H PRN 10/28/17 11/10/17 History Inhaler] Folic Acid 1 mg PO DAILY 10/28/17 11/10/17 History Naproxen 500 mg PO BID PRN 10/28/17 11/10/17 History Omeprazole 40 mg PO DAILY 10/28/17 11/10/17 History Ondansetron Odt [Zofran ODT] 4 mg PO Q8HR PRN #20 tab 10/28/17 11/10/17 Rx Thiamine HCl [Vitamin B-1] 100 mg PO DAILY 10/28/17 11/10/17 History Furosemide [Lasix] 80 mg PO DAILY 11/05/17 11/10/17 History Lactulose 10 gm PO DAILY PRN 11/05/17 11/10/17 History Propranolol [Inderal] 10 mg PO TID 11/05/17 11/10/17 History Spironolactone [Aldactone] 25 mg PO DAILY 11/05/17 11/10/17 History Hydrocodone/Acetaminophen [[place] 1 tab PO Q6HR PRN #10 tab 11/06/17 11/10/17 Rx 7.5-325] Cefuroxime Axetil [Ceftin] 500 mg PO BID #14 tab 11/13/17 Rx Morphine Sulfate Ir [MSIR] 15 mg PO Q4H PRN #18 tab 11/13/17 Rx Tiotropium [place] [Spiriva] 1 cap INHALATION DAILY #1 device 11/13/17 Rx predniSONE 10 mg PO DAILY #30 tab 11/13/17 Rx Allergies Allergy/AdvReac Type Severity Reaction Status Date / Time No Known Allergies Allergy Verified 04/09/18 16:17 Physical Exam Vitals: Vital Signs Temp Pulse Pulse Resp BP BP Pulse Ox 11/16/17 08:08 78 11/16/17 07:58 76 11/16/17 07:54 97.5 F L 79 16 137/73 95 11/15/17 23:56 18 11/15/17 23:00 98.1 F 90 16 150/79 98 11/15/17 22:11 80 11/15/17 22:02 82 11/15/17 21:17 98.1 F 88 18 122/64 99 11/15/17 20:17 92 131/68 99 11/15/17 19:00 86 11/15/17 18:47 84 11/15/17 18:22 86 11/15/17 18:04 96.9 F L 91 26 H 130/69 98 Intake and Output 11/15/17 11/16/17 11/16/17 22:59 06:59 14:59 Intake Total 240 800 Output Total 200 Balance 240 800 -200 Intake: Intake, IV Titration 800 Amount Sodium Chloride 0.9% 1, 800 000 ml @ 100 mls/hr IV . Q10H STA Rx#:[id number] Oral 240 Output: Urine 200 Other: # Voids 1 1 Weight 71.668 kg 71.668 kg PHYSICAL EXAMINATION: GENERAL: The patient is alert and oriented x3, not in any acute distress. Well developed, well nourished. HEENT: Pupils are round and equally reacting to light. EOMI. No scleral icterus. No conjunctival pallor. Normocephalic, atraumatic. No pharyngeal erythema. No thyromegaly. CARDIOVASCULAR: S1 and S2 present. No murmurs, rubs, or gallops. PULMONARY: Minimal expiratory wheezing rhonchus breath sounds bibasilar crackles were appreciated. ABDOMEN: distended with the shifting dullness no tenderness was appreciated, normoactive bowel sounds. No palpable organomegaly. MUSCULOSKELETAL: No joint swelling or deformity. EXTREMITIES: No cyanosis, clubbing, or pedal edema. NEUROLOGICAL: Gross neurological examination did not reveal any focal deficits. SKIN: No rashes. Results CBC & Chem 7: 11/15/17 18:25 11/15/17 20:06 Labs: Abnormal Lab Results - Last 24 Hours (Table) 11/15/17 11/15/17 11/15/17 Range/Units 18:25 20:06 21:35 WBC 14.5 H (3.8-10.6) k/uL RBC 4.29 L (4.30-5.90) m/uL Hgb 9.7 L (13.0-17.5) gm/dL Hct 34.3 L (39.0-53.0) % MCV 79.9 L D (80.0-100.0) fL MCH 22.7 L (25.0-35.0) pg MCHC 28.4 L (31.0-37.0) g/dL RDW 16.8 H (11.5-15.5) % Neutrophils # (Manual) 10.10 H (1.3-7.7) k/uL INR (<1.2) APTT (22.0-30.0) sec Carbon Dioxide 21 L (22-30) mmol/L BUN 30 H (9-20) mg/dL Glucose 159 H (74-99) mg/dL Plasma Lactic Acid Nish 2.3 H* (0.7-2.0) mmol/L Total Bilirubin 3.6 H (0.2-1.3) mg/dL AST 290 H (17-59) U/L ALT 112 H (21-72) U/L Alkaline Phosphatase 606 H (38-126) U/L Creatine Kinase 41 L (55-170) U/L Albumin 2.7 L (3.5-5.0) g/dL 11/15/17 11/16/17 Range/Units 21:35 01:49 WBC (3.8-10.6) k/uL RBC (4.30-5.90) m/uL Hgb (13.0-17.5) gm/dL Hct (39.0-53.0) % MCV (80.0-100.0) fL MCH (25.0-35.0) pg MCHC (31.0-37.0) g/dL RDW (11.5-15.5) % Neutrophils # (Manual) (1.3-7.7) k/uL INR 1.2 H (<1.2) APTT 21.5 L (22.0-30.0) sec Carbon Dioxide (22-30) mmol/L BUN (9-20) mg/dL Glucose (74-99) mg/dL Plasma Lactic Acid Nish 2.3 H* (0.7-2.0) mmol/L Total Bilirubin (0.2-1.3) mg/dL AST (17-59) U/L ALT (21-72) U/L Alkaline Phosphatase (38-126) U/L Creatine Kinase (55-170) U/L Albumin (3.5-5.0) g/dL Thrombosis Risk Factor Assmnt - Choose All That Apply Any of the Below Risk Factors Present?: Yes Each Factor Represents 1 point: Abnormal pulmonary function (COPD), Age 41-60 years, Obesity (BMI >25), Swollen legs (current) Other Risk Factors: Yes Each Risk Factor Represents 2 Points: Malignancy Thrombosis Risk Factor Assessment Total Risk Factor Score: 6 Thrombosis Risk Factor Assessment Level: High Risk Assessment and Plan Plan: -Generalized fatigue for him, as per chronic medical problems. Neville pneumonic infiltrate. -Pneumonia for which patient is already in a on Ceftin need to complete his therapy there is no worsening pneumonia. -Cirrhosis alcoholic with a site is not enough fluid to drain again. -Unproven diagnosis of pertussis alert carcinoma for which patient will need to follow with Dr. Swartz as an outpatient for further workup and review of medical records from [facility] -COPD without any significant exacerbation patient is already on systemic steroids which he need to continue. -Leukocytosis secondary to systemic strides. -Elevated liver enzymes to due to alcoholic cirrhosis and probably a competent of hepatitis. -Hypertension -Hepatitis C history
--- NOTE | 2017-11-16 11:09 | P.DS ---
Providers Date of admission: 11/15/17 21:06 Attending physician: Marce Castañeda Primary care physician: [facility] Course: Patient will be discharged today after evaluation with a binder caser/high school social science teacher please refer to my HPI for further details Plan - Discharge Summary New Discharge Prescriptions: No Action Beclomethasone Dipropionate [Qvar 80 mcg] 1 puff INHALATION RT-BID Albuterol Inhaler [Ventolin Hfa Inhaler] 2 puff INHALATION RT-Q6H PRN PRN Reason: Shortness Of Breath Thiamine HCl [Vitamin B-1] 100 mg PO DAILY Omeprazole 40 mg PO DAILY Naproxen 500 mg PO BID PRN PRN Reason: Pain Folic Acid 1 mg PO DAILY Ondansetron Odt [Zofran ODT] 4 mg PO Q8HR PRN #20 tab PRN Reason: Nausea Propranolol [Inderal] 10 mg PO TID Furosemide [Lasix] 80 mg PO DAILY Spironolactone [Aldactone] 25 mg PO DAILY Lactulose 10 gm PO DAILY PRN PRN Reason: Constipation Hydrocodone/Acetaminophen [[place] 7.5-325] 1 tab PO Q6HR PRN #10 tab PRN Reason: Pain Cefuroxime Axetil [Ceftin] 500 mg PO BID #14 tab Morphine Sulfate Ir [MSIR] 15 mg PO Q4H PRN #18 tab PRN Reason: Pain predniSONE 10 mg PO DAILY #30 tab Tiotropium [place] [Spiriva] 1 cap INHALATION DAILY #1 device Discharge Medication List Beclomethasone Dipropionate [Qvar 80 mcg] 1 puff INHALATION RT-BID 10/08/17 [ History] Albuterol Inhaler [Ventolin Hfa Inhaler] 2 puff INHALATION RT-Q6H PRN 10/28/17 [ History] Folic Acid 1 mg PO DAILY 10/28/17 [History] Naproxen 500 mg PO BID PRN 10/28/17 [History] Omeprazole 40 mg PO DAILY 10/28/17 [History] Ondansetron Odt [Zofran ODT] 4 mg PO Q8HR PRN #20 tab 10/28/17 [Rx] Thiamine HCl [Vitamin B-1] 100 mg PO DAILY 10/28/17 [History] Furosemide [Lasix] 80 mg PO DAILY 11/05/17 [History] Lactulose 10 gm PO DAILY PRN 11/05/17 [History] Propranolol [Inderal] 10 mg PO TID 11/05/17 [History] Spironolactone [Aldactone] 25 mg PO DAILY 11/05/17 [History] Hydrocodone/Acetaminophen [[place] 7.5-325] 1 tab PO Q6HR PRN #10 tab 11/06/17 [Rx ] Cefuroxime Axetil [Ceftin] 500 mg PO BID #14 tab 11/13/17 [Rx] Morphine Sulfate Ir [MSIR] 15 mg PO Q4H PRN #18 tab 11/13/17 [Rx] Tiotropium [place] [Spiriva] 1 cap INHALATION DAILY #1 device 11/13/17 [Rx] predniSONE 10 mg PO DAILY #30 tab 11/13/17 [Rx] Follow up Appointment(s)/Referral(s): Kandace Hamlin MD [Primary Care Provider] - 3 Days
[2017-11-16] MEDS ORDERED: MORPHINE ORAL SOLN 10 MG/5 ML CUP PO PRN (13:34)
[2017-11-16 15:52] VITALS: BP 136/75; PULSE 92; RESP 18; TEMP 97.6
== END 2017-11-16 16:47 | disposition home or self-care (01) | DRG 391 ==
LOC: EC 17:31 → 5ONC 21:06
PROVIDERS: ADMIT Internal Medicine; ATTEND Internal Medicine
DX: R10.9 Unspecified abdominal pain (principal); J18.9 Pneumonia, unspecified organism; C22.9 Malignant neoplasm of liver, not specified as primary or secondary; J98.11 Atelectasis; R53.83 Other fatigue; Z86.19 Personal history of other infectious and parasitic diseases; F17.200 Nicotine dependence, unspecified, uncomplicated; F32.9 Major depressive disorder, single episode, unspecified; F41.9 Anxiety disorder, unspecified; G89.29 Other chronic pain; I10 Essential (primary) hypertension; K21.9 Gastro-esophageal reflux disease without esophagitis; K70.30 Alcoholic cirrhosis of liver without ascites; F10.21 Alcohol dependence, in remission; J44.9 Chronic obstructive pulmonary disease, unspecified; M54.9 Dorsalgia, unspecified; F11.11 Opioid abuse, in remission; Z79.52 Long term (current) use of systemic steroids; Z79.899 Other long term (current) drug therapy; Z82.0 Family history of epilepsy and other diseases of the nervous system; R53.1 Weakness
CPT/HCPCS: 36415; 71046; 80053; 82140; 82550; 82553; 83605; 83735; 83880; 84484; 85025; 85610; 85730; 87040; 93005; 94640; 94644; 96361; 96365; 96366; 96375; 99285

== ENCOUNTER 2017-11-19 11:43 | Day surgery (SDC) | payer OTHER ==
[2017-11-19 12:59] LABS: Mean Platelet Volume 9.2; Platelet Count 341 k/uL (150-450)
[2017-11-19 13:00] LABS: INR 1.2 (<1.2); Prothrombin Time 11.5 sec (9.0-12.0)
--- NOTE | 2017-11-19 14:33 | US ---
EXAMINATION TYPE: US paracentesis abd w/image DATE OF EXAM: 11/19/2017 COMPARISON: NONE HISTORY: Ascites. PROCEDURE: Maximal barrier technique was utilized. The skin overlying a suitable pocket of fluid was localized with ultrasound and the overlying skin was prepped and draped. Ultrasound was utilized with sterile technique. Lidocaine was used for local anesthesia and a skin hollie made with a scalpel. Catheter was advanced under direct ultrasound guidance into a suitable pocket of fluid and approximately 3.8 liter s of serous fluid were removed. Catheter was withdrawn and hemostasis achieved. There is no immedia te complication; the patient is discharged in stable condition. IMPRESSION: STATUS POST ULTRASOUND GUIDED PARACENTESIS FOR PALLIATION OF ASCITES. THIS PROCEDURE WA S PERFORMED BY THE UNDERSIGNED.
[2017-11-19 14:37] VITALS: BP 125/79; PULSE 90; RESP 16
== END 2017-11-19 14:30 | disposition home or self-care (01) ==
LOC: RADPROMAIN 11:43
PROVIDERS: ATTEND Family Medicine
DX: R18.8 Other ascites (principal); C22.8 Malignant neoplasm of liver, primary, unspecified as to type
CPT/HCPCS: 36415; 49083; 82565; 85049; 85610